=== PATIENT | male | born 1960 | race Caucasian/White ===

== ENCOUNTER 2019-06-11 19:05 | Inpatient (IN) | payer MEDICAID, OTHER ==
[~2019-06-11] VITALS: Ht 177.8 cm; Wt 88.5 kg
[2019-06-11] MEDS ORDERED: LORazepam 2 MG TABLET PO PRN (21:45)
[2019-06-11] MEDS ORDERED: HALOPERIDOL 5 MG TABLET PO PRN (21:45)
[2019-06-11] MEDS ORDERED: ZOLPIDEM TARTRATE 10 MG TABLET PO PRN (21:45)
[2019-06-11] MEDS: ACYCLOVIR 200 MG CAPSULE PO SCH (22:00)
[2019-06-11 22:50] VITALS: BP 124/77
[2019-06-11] MEDS ORDERED: INFLUENZA VIRUS VACCINE QVS 2019-20 (3YR+)/PF 60 MCG/0.5 ML SYRINGE IM ONE (23:45)
[2019-06-12 05:24] VITALS: BP 115/53
[2019-06-12 08:21] VITALS: BP 131/74
[2019-06-12] MEDS: ACYCLOVIR 200 MG CAPSULE PO SCH ×2 (09:49→16:48)
[2019-06-12] MEDS: LamoTRIgine 100 MG TABLET PO SCH (10:12)
[2019-06-12] MEDS: ESCITALOPRAM OXALATE 20 MG TABLET PO SCH (10:12)
[2019-06-12] MEDS ORDERED: GuaiFENesin/D-METHORPHAN [SUGAR-FREE] 200-20MG/10 ML SYRUP UDCUP PO PRN (11:15)
[2019-06-12] MEDS ORDERED: DOCUSATE SODIUM 100 MG CAPSULE PO PRN (11:15)
[2019-06-12] MEDS ORDERED: ONDANSETRON HCL 4 MG TABLET PO PRN (11:15)
[2019-06-12] MEDS ORDERED: LOPERAMIDE HCL 2 MG CAPSULE PO PRN (11:15)
[2019-06-12] MEDS ORDERED: MAGNESIUM HYDROXIDE SUSPENSION 30 ML UDCUP PO PRN (11:15)
[2019-06-12] MEDS ORDERED: ALBUTEROL SULFATE HFA 90 MCG/PUFF 8 GM INHALER IH PRN (11:15)
[2019-06-12] MEDS ORDERED: NICOTINE 14 MG/24 HOUR PATCH TD PRN (11:15)
[2019-06-12] MEDS ORDERED: MAG HYDROX/AL HYDROX/SIMETH ES 30 ML SUSPENSION UDCUP PO PRN (11:15)
[2019-06-12] MEDS ORDERED: CloNIDine HCL 0.1 MG TABLET PO PRN (11:15)
[2019-06-12 18:48] VITALS: BP 138/80
[2019-06-12] MEDS: QUEtiapine FUMARATE 100 MG TABLET PO SCH (20:37)
[2019-06-13 07:26] LABS: BASOPHILS % (AUTO) 0.6 % (0.0-2.0); EOSINOPHILS % (AUTO) 2.5 % (1.0-6.0); HEMATOCRIT 42.2 % (41-53); HEMOGLOBIN 14.6 g/dL (13.5-17.5); LYMPHOCYTES # (AUTO) 1.9 K/uL (1.0-4.8); MEAN CORPUSCULAR HEMOGLOBIN 31.2 pg (26.0-34.0); MEAN CORPUSCULAR HGB CONC 34.5 G/dL (31.0-37.0); MEAN CORPUSCULAR VOLUME 91 fL (80-100); MONOCYTES # (AUTO) 0.8 K/uL (0.1-1.0); MONOCYTES % (AUTO) 11.3 % (2.0-9.0); NEUTROPHILS # (AUTO) 4.2 K/uL (1.8-7.7); NEUTROPHILS % (AUTO) 58.6 % (40.0-70.0); PLATELET COUNT (AUTO) 116 K/uL (150-450); RED BLOOD CELL COUNT(AUTO) 4.66 MIL/uL (4.50-5.90)
[2019-06-13 07:40] LABS: HEMOGLOBIN A1C 5.4 % (4.5-6.2)
[2019-06-13 07:53] LABS: ALANINE AMINOTRANSFERASE 24 U/L (12-78); ALBUMIN 3.6 g/dL (3.4-5.0); ALKALINE PHOSPHATASE 64 U/L (46-116); ANION GAP 7 mmol/L (8-16); ASPARTATE AMINOTRANSFERASE 22 U/L (15-37); BILIRUBIN,TOTAL 0.5 mg/dL (0.1-1.0); CALCIUM, TOTAL 8.6 mg/dL (8.8-10.5); CARBON DIOXIDE 27 mmol/L (22-29); CHLORIDE 106 mmol/L (98-107); CHOL/HDL RATIO 4.2 (4.2-7.3); CHOLESTEROL 126 mg/dL (131-200); CREATININE 1.18 mg/dL (0.60-1.30); GLOMERULAR FILTR. RATE CALC > 60 mL/min (>60); GLUCOSE,RANDOM 88 mg/dL (70-110); HDL CHOLESTEROL 30 mg/dL (40-60); LDL CHOL (CALC.) 78 mg/dL (0-130); SODIUM SERUM 140 mmol/L (136-145); TOTAL PROTEIN, SERUM 6.8 g/dL (6.4-8.2); TRIGLYCERIDES 88 mg/dL (15-150); UREA NITROGEN, BLOOD 17 mg/dL (7-18)
[2019-06-13 08:00] VITALS: BP 111/73
[2019-06-13] MEDS: ACYCLOVIR 200 MG CAPSULE PO SCH ×2 (09:00→21:13)
[2019-06-13] MEDS: LamoTRIgine 100 MG TABLET PO SCH (09:00)
[2019-06-13] MEDS: ESCITALOPRAM OXALATE 20 MG TABLET PO SCH (09:00)
[2019-06-13 19:30] VITALS: BP 124/75
[2019-06-13] MEDS: QUEtiapine FUMARATE 100 MG TABLET PO SCH (21:13)
[2019-06-14] MEDS: ESCITALOPRAM OXALATE 20 MG TABLET PO SCH (09:27)
[2019-06-14] MEDS: LamoTRIgine 100 MG TABLET PO SCH (09:27)
[2019-06-14] MEDS: ACYCLOVIR 200 MG CAPSULE PO SCH ×2 (09:28→21:23)
[2019-06-14 10:11] VITALS: BP 123/69
[2019-06-14 17:00] VITALS: BP 124/70
[2019-06-14 20:02] LABS: APPEARANCE,URINE CLEAR (CLEAR); BILIRUBIN,URINE NEGATIVE (NEGATIVE); GLUCOSE, URINE (UA) NEGATIVE (NEGATIVE); KETONES,URINE NEGATIVE (NEGATIVE); LEUKOCYTE ESTERASE ,URINE NEGATIVE (NEGATIVE); NITRATE,URINE NEGATIVE (NEGATIVE); OCCULT BLOOD,URINE NEGATIVE (NEGATIVE); PROTEIN,URINE NEGATIVE (NEGATIVE); UROBILINOGEN,URINE 0.2 mg/dL (<=1.0)
[2019-06-14 20:08] LABS: AMPHET/METH SCREEN,URINE NEGATIVE (NEGATIVE); BARBITURATE SCREEN, URINE NEGATIVE (NEGATIVE); BENZODIAZEPINES SCREEN,URINE NEGATIVE (NEGATIVE); CANNABINOID SCREEN,URINE NEGATIVE (NEGATIVE); COCAINE SCREEN,URINE NEGATIVE (NEGATIVE); METHADONE SCREEN, URINE NEGATIVE (NEGATIVE); OPIATE SCREEN,URINE NEGATIVE (NEGATIVE); PHENCYCLIDINE SCREEN,URINE NEGATIVE (NEGATIVE)
[2019-06-14] MEDS: QUEtiapine FUMARATE 100 MG TABLET PO SCH (21:23)
[2019-06-15] MEDS: ESCITALOPRAM OXALATE 20 MG TABLET PO SCH (09:27)
[2019-06-15] MEDS: ACYCLOVIR 200 MG CAPSULE PO SCH ×2 (09:27→21:49)
[2019-06-15] MEDS: LamoTRIgine 100 MG TABLET PO SCH (09:27)
[2019-06-15 10:19] VITALS: BP 119/79
[2019-06-15 17:42] VITALS: BP 118/77
[2019-06-15] MEDS: QUEtiapine FUMARATE 100 MG TABLET PO SCH (21:49)
[2019-06-16 09:33] VITALS: BP 134/81
[2019-06-16] MEDS: ACYCLOVIR 200 MG CAPSULE PO SCH ×2 (09:50→21:34)
[2019-06-16] MEDS: ESCITALOPRAM OXALATE 20 MG TABLET PO SCH (09:50)
[2019-06-16] MEDS: LamoTRIgine 100 MG TABLET PO SCH (09:50)
[2019-06-16 18:23] VITALS: BP 108/58
[2019-06-16] MEDS: QUEtiapine FUMARATE 100 MG TABLET PO SCH (21:34)
[2019-06-17 04:48] VITALS: BP 127/62
[2019-06-17 08:00] VITALS: BP 135/70
[2019-06-17] MEDS: ESCITALOPRAM OXALATE 20 MG TABLET PO SCH (09:36)
[2019-06-17] MEDS: ACYCLOVIR 200 MG CAPSULE PO SCH ×2 (09:36→21:00)
[2019-06-17] MEDS: LamoTRIgine 100 MG TABLET PO SCH (09:36)
[2019-06-17 18:20] VITALS: BP 128/76
[2019-06-17] MEDS: QUEtiapine FUMARATE 100 MG TABLET PO SCH (21:24)
[2019-06-18 08:50] VITALS: BP 133/98
[2019-06-18] MEDS: ACYCLOVIR 200 MG CAPSULE PO SCH ×2 (09:00→21:39)
[2019-06-18] MEDS: LamoTRIgine 100 MG TABLET PO SCH (09:20)
[2019-06-18] MEDS: ESCITALOPRAM OXALATE 20 MG TABLET PO SCH (09:20)
[2019-06-18] MEDS: MULTIVITAMINS WITH MINERALS, THERAPEUTIC TABLET PO SCH (09:21)
[2019-06-18 17:19] VITALS: BP 124/73
[2019-06-18] MEDS: QUEtiapine FUMARATE 100 MG TABLET PO SCH (21:39)
[2019-06-19 08:42] VITALS: BP 143/98
[2019-06-19] MEDS: ACYCLOVIR 200 MG CAPSULE PO SCH ×3 (09:00→21:00)
[2019-06-19] MEDS: MULTIVITAMINS WITH MINERALS, THERAPEUTIC TABLET PO SCH (09:15)
[2019-06-19] MEDS: ESCITALOPRAM OXALATE 20 MG TABLET PO SCH (09:16)
[2019-06-19] MEDS: LamoTRIgine 100 MG TABLET PO SCH (09:17)
[2019-06-19 18:41] VITALS: BP 122/72
[2019-06-19] MEDS: QUEtiapine FUMARATE 100 MG TABLET PO SCH (21:29)
[2019-06-20] MEDS: ESCITALOPRAM OXALATE 20 MG TABLET PO SCH (08:43)
[2019-06-20] MEDS: LamoTRIgine 100 MG TABLET PO SCH (08:43)
[2019-06-20] MEDS: MULTIVITAMINS WITH MINERALS, THERAPEUTIC TABLET PO SCH (08:43)
[2019-06-20 08:53] VITALS: BP 129/80
[2019-06-20] MEDS: ACYCLOVIR 200 MG CAPSULE PO SCH ×2 (09:11→21:28)
[2019-06-20 20:13] VITALS: BP 127/70
[2019-06-20] MEDS: QUEtiapine FUMARATE 100 MG TABLET PO SCH (21:28)
[2019-06-21 08:57] VITALS: BP 137/84
[2019-06-21] MEDS: LamoTRIgine 100 MG TABLET PO SCH (09:33)
[2019-06-21] MEDS: ESCITALOPRAM OXALATE 20 MG TABLET PO SCH (09:33)
[2019-06-21] MEDS: MULTIVITAMINS WITH MINERALS, THERAPEUTIC TABLET PO SCH (09:33)
[2019-06-21] MEDS: ACYCLOVIR 200 MG CAPSULE PO SCH ×2 (09:34→21:25)
[2019-06-21] MEDS: PETROLATUM,WHITE 28 GM JELLY TP PRN (10:12)
[2019-06-21 16:00] VITALS: BP 124/83
[2019-06-21] MEDS: QUEtiapine FUMARATE 100 MG TABLET PO SCH (21:25)
[2019-06-22 08:30] VITALS: BP 125/74
[2019-06-22] MEDS: VENLAFAXINE HCL 75 MG ER CAPSULE PO SCH (09:00)
[2019-06-22] MEDS: LamoTRIgine 100 MG TABLET PO SCH (09:00)
[2019-06-22] MEDS: MULTIVITAMINS WITH MINERALS, THERAPEUTIC TABLET PO SCH (09:01)
[2019-06-22] MEDS: ACYCLOVIR 200 MG CAPSULE PO SCH ×2 (09:02→21:37)
[2019-06-22 19:47] VITALS: BP 124/75
[2019-06-22] MEDS: QUEtiapine FUMARATE 100 MG TABLET PO SCH (21:36)
[2019-06-23] MEDS: VENLAFAXINE HCL 75 MG ER CAPSULE PO SCH (08:21)
[2019-06-23] MEDS: LamoTRIgine 100 MG TABLET PO SCH (08:21)
[2019-06-23] MEDS: MULTIVITAMINS WITH MINERALS, THERAPEUTIC TABLET PO SCH (08:21)
[2019-06-23] MEDS: ACYCLOVIR 200 MG CAPSULE PO SCH ×2 (08:22→21:27)
[2019-06-23 08:52] VITALS: BP 121/81
[2019-06-23 17:22] VITALS: BP 122/80
[2019-06-23] MEDS: QUEtiapine FUMARATE 100 MG TABLET PO SCH (21:27)
[2019-06-24] MEDS: MULTIVITAMINS WITH MINERALS, THERAPEUTIC TABLET PO SCH (09:18)
[2019-06-24] MEDS: VENLAFAXINE HCL 75 MG ER CAPSULE PO SCH (09:18)
[2019-06-24] MEDS: LamoTRIgine 100 MG TABLET PO SCH (09:19)
[2019-06-24] MEDS: ACYCLOVIR 200 MG CAPSULE PO SCH ×2 (09:20→21:29)
[2019-06-24 13:04] VITALS: BP 123/87
[2019-06-24] MEDS: PETROLATUM,WHITE 28 GM JELLY TP PRN (16:27)
[2019-06-24 18:43] VITALS: BP 140/81
[2019-06-24] MEDS: QUEtiapine FUMARATE 100 MG TABLET PO SCH (21:29)
[2019-06-25 08:34] VITALS: BP 125/67
[2019-06-25] MEDS: LamoTRIgine 100 MG TABLET PO SCH (09:20)
[2019-06-25] MEDS: MULTIVITAMINS WITH MINERALS, THERAPEUTIC TABLET PO SCH (09:20)
[2019-06-25] MEDS: ACYCLOVIR 200 MG CAPSULE PO SCH ×2 (09:20→20:31)
[2019-06-25] MEDS: VENLAFAXINE HCL 75 MG ER CAPSULE PO SCH (09:20)
[2019-06-25] MEDS ORDERED: COAL TAR 0.5% 255 ML SHAMPOO TP PRN (17:45)
[2019-06-25 17:56] VITALS: BP 127/76
[2019-06-25] MEDS: QUEtiapine FUMARATE 100 MG TABLET PO SCH (20:30)
[2019-06-26 08:30] VITALS: BP 128/79
[2019-06-26] MEDS: VENLAFAXINE HCL 75 MG ER CAPSULE PO SCH (09:09)
[2019-06-26] MEDS: LamoTRIgine 100 MG TABLET PO SCH (09:09)
[2019-06-26] MEDS: MULTIVITAMINS WITH MINERALS, THERAPEUTIC TABLET PO SCH (09:09)
[2019-06-26] MEDS: ACYCLOVIR 200 MG CAPSULE PO SCH ×2 (09:11→20:38)
[2019-06-26 18:12] VITALS: BP 141/74
[2019-06-26] MEDS: QUEtiapine FUMARATE 100 MG TABLET PO SCH (21:43)
[2019-06-27 08:44] VITALS: BP 140/89
[2019-06-27] MEDS: LamoTRIgine 100 MG TABLET PO SCH (09:48)
[2019-06-27] MEDS: VENLAFAXINE HCL 75 MG ER CAPSULE PO SCH (09:48)
[2019-06-27] MEDS: ACYCLOVIR 200 MG CAPSULE PO SCH ×2 (09:49→21:42)
[2019-06-27] MEDS: MULTIVITAMINS WITH MINERALS, THERAPEUTIC TABLET PO SCH (09:49)
[2019-06-27 10:01] VITALS: BP 140/89
[2019-06-27] MEDS: IBUPROFEN 400 MG TABLET PO PRN ×2 (10:01→17:52)
[2019-06-27 17:54] VITALS: BP 113/60
[2019-06-27] MEDS: QUEtiapine FUMARATE 100 MG TABLET PO SCH (21:42)
[2019-06-28 08:34] VITALS: BP 129/78
[2019-06-28] MEDS: LamoTRIgine 100 MG TABLET PO SCH (10:32)
[2019-06-28] MEDS: ACYCLOVIR 200 MG CAPSULE PO SCH ×2 (10:32→21:42)
[2019-06-28] MEDS: MULTIVITAMINS WITH MINERALS, THERAPEUTIC TABLET PO SCH (10:32)
[2019-06-28] MEDS: VENLAFAXINE HCL 75 MG ER CAPSULE PO SCH (10:32)
[2019-06-28 18:31] VITALS: BP 142/82
[2019-06-28] MEDS: QUEtiapine FUMARATE 100 MG TABLET PO SCH (21:42)
[2019-06-29] MEDS: VENLAFAXINE HCL 75 MG ER CAPSULE PO SCH (09:20)
[2019-06-29] MEDS: MULTIVITAMINS WITH MINERALS, THERAPEUTIC TABLET PO SCH (09:21)
[2019-06-29] MEDS: LamoTRIgine 100 MG TABLET PO SCH (09:21)
[2019-06-29] MEDS: ACYCLOVIR 200 MG CAPSULE PO SCH ×2 (09:21→21:37)
[2019-06-29 09:40] VITALS: BP 116/71
[2019-06-29] MEDS: IBUPROFEN 600 MG TABLET PO PRN (15:41)
[2019-06-29 16:45] VITALS: BP 134/88
[2019-06-29 17:33] VITALS: BP 134/88
[2019-06-29] MEDS: FLUTICASONE PROPIONATE 50 MCG/SPRAY 16 GM NASAL SPRAY NASAL SCH (21:37)
[2019-06-29] MEDS: QUEtiapine FUMARATE 100 MG TABLET PO SCH (21:37)
[2019-06-30] MEDS: VENLAFAXINE HCL 75 MG ER CAPSULE PO SCH (09:02)
[2019-06-30] MEDS: MULTIVITAMINS WITH MINERALS, THERAPEUTIC TABLET PO SCH (09:02)
[2019-06-30] MEDS: FLUTICASONE PROPIONATE 50 MCG/SPRAY 16 GM NASAL SPRAY NASAL SCH ×2 (09:02→21:47)
[2019-06-30] MEDS: ACYCLOVIR 200 MG CAPSULE PO SCH ×2 (09:03→21:48)
[2019-06-30] MEDS: LamoTRIgine 100 MG TABLET PO SCH (09:03)
[2019-06-30 09:31] VITALS: BP 134/92
[2019-06-30 12:58] LABS: APPEARANCE,URINE CLEAR (CLEAR); BILIRUBIN,URINE NEGATIVE (NEGATIVE); GLUCOSE, URINE (UA) NEGATIVE (NEGATIVE); KETONES,URINE NEGATIVE (NEGATIVE); LEUKOCYTE ESTERASE ,URINE NEGATIVE (NEGATIVE); NITRATE,URINE NEGATIVE (NEGATIVE); OCCULT BLOOD,URINE NEGATIVE (NEGATIVE); PH,URINE 6.5 (5.0-8.0); PROTEIN,URINE NEGATIVE (NEGATIVE); UROBILINOGEN,URINE 0.2 mg/dL (<=1.0)
[2019-06-30 17:03] VITALS: BP 127/84
[2019-06-30] MEDS: QUEtiapine FUMARATE 100 MG TABLET PO SCH (21:47)
[2019-07-01] MEDS: FLUTICASONE PROPIONATE 50 MCG/SPRAY 16 GM NASAL SPRAY NASAL SCH ×2 (09:43→21:45)
[2019-07-01] MEDS: VENLAFAXINE HCL 75 MG ER CAPSULE PO SCH (09:43)
[2019-07-01] MEDS: ACYCLOVIR 200 MG CAPSULE PO SCH ×2 (09:43→21:45)
[2019-07-01] MEDS: LamoTRIgine 100 MG TABLET PO SCH (09:43)
[2019-07-01] MEDS: MULTIVITAMINS WITH MINERALS, THERAPEUTIC TABLET PO SCH (09:43)
[2019-07-01 10:06] VITALS: BP 131/80
[2019-07-01 17:24] VITALS: BP 137/85
[2019-07-01 21:14] VITALS: BP 124/74
[2019-07-01] MEDS: IBUPROFEN 600 MG TABLET PO PRN (21:14)
[2019-07-01] MEDS: QUEtiapine FUMARATE 100 MG TABLET PO SCH (21:45)
[2019-07-02] MEDS: FLUTICASONE PROPIONATE 50 MCG/SPRAY 16 GM NASAL SPRAY NASAL SCH (09:04)
[2019-07-02] MEDS: VENLAFAXINE HCL 75 MG ER CAPSULE PO SCH (09:04)
[2019-07-02] MEDS: ACYCLOVIR 200 MG CAPSULE PO SCH (09:05)
[2019-07-02] MEDS: LamoTRIgine 100 MG TABLET PO SCH (09:05)
[2019-07-02] MEDS: MULTIVITAMINS WITH MINERALS, THERAPEUTIC TABLET PO SCH (09:05)
[2019-07-02] MEDS ORDERED: QUET100T PO (09:06)
[2019-07-02] MEDS ORDERED: VENL-193 PO (09:07)
[2019-07-02] MEDS ORDERED: LAMO100 PO (09:07)
[2019-07-02] MEDS ORDERED: FLUT16H NASAL (09:08)
[2019-07-02] MEDS ORDERED: ACYC200C PO (09:08)
[2019-07-02] MEDS ORDERED: MULT-1239 PO (09:08)
== END 2019-07-02 09:45 | disposition home or self-care (01) | DRG 885 ==
LOC: 3EI 19:05
DX: F31.4 Bipolar disorder, current episode depressed, severe, without psychotic features (principal); R45.851 Suicidal ideations; B00.9 Herpesviral infection, unspecified; F10.10 Alcohol abuse, uncomplicated; J30.9 Allergic rhinitis, unspecified; Z91.5 Personal history of self-harm; Z23 Encounter for immunization
CPT/HCPCS: 80307; 82947; 83036; 84439; 84443; 90686

== ENCOUNTER 2019-08-07 12:31 | Inpatient (IN) | payer MEDICAID ==
[~2019-08-07] VITALS: Ht 180.3 cm; Wt 88.2 kg
[~2019-08-07 12:31] MED LIST: ACYC200C PO; FLUT16H NASAL; LAMO100 PO; MULT-1239 PO; QUET100T PO; VENL-193 PO
[2019-08-07 13:21] LABS: BASOPHILS % (AUTO) 0.6 % (0.0-2.0); HEMATOCRIT 43.4 % (41-53); HEMOGLOBIN 14.9 g/dL (13.5-17.5); LYMPHOCYTES # (AUTO) 1.4 K/uL (1.0-4.8); LYMPHOCYTES % (AUTO) 21.5 % (22.0-44.0); MEAN CORPUSCULAR HGB CONC 34.4 G/dL (31.0-37.0); MEAN CORPUSCULAR VOLUME 90 fL (80-100); MONOCYTES # (AUTO) 0.7 K/uL (0.1-1.0); MONOCYTES % (AUTO) 10.5 % (2.0-9.0); NEUTROPHILS # (AUTO) 4.4 K/uL (1.8-7.7); NEUTROPHILS % (AUTO) 65.4 % (40.0-70.0); PLATELET COUNT (AUTO) 121 K/uL (150-450); RED BLOOD CELL COUNT(AUTO) 4.82 MIL/uL (4.50-5.90); RED CELL DISTRIBUTION WIDTH 13.3 % (11.5-14.5)
[2019-08-07 13:31] LABS: ANION GAP 8 mmol/L (8-16); CALCIUM, TOTAL 8.8 mg/dL (8.8-10.5); CARBON DIOXIDE 27 mmol/L (22-29); CHLORIDE 103 mmol/L (98-107); CREATININE 1.12 mg/dL (0.60-1.30); GLOMERULAR FILTR. RATE CALC > 60 mL/min (>60); GLUCOSE,RANDOM 97 mg/dL (70-110); POTASSIUM 4.1 mmol/L (3.5-5.1); SODIUM SERUM 138 mmol/L (136-145); UREA NITROGEN, BLOOD 12 mg/dL (7-18)
[2019-08-07 13:38] LABS: ALANINE AMINOTRANSFERASE 47 U/L (12-78); ALBUMIN 3.9 g/dL (3.4-5.0); ALKALINE PHOSPHATASE 81 U/L (46-116); ASPARTATE AMINOTRANSFERASE 34 U/L (15-37); BILIRUBIN,TOTAL 0.5 mg/dL (0.1-1.0); TOTAL PROTEIN, SERUM 7.3 g/dL (6.4-8.2)
[2019-08-07] MEDS ORDERED: LORazepam 1 MG TABLET PO ONE (14:00)
[2019-08-07] MEDS ORDERED: ZOLPIDEM TARTRATE 10 MG TABLET PO PRN (15:30)
[2019-08-07] MEDS ORDERED: QUEtiapine FUMARATE 100 MG TABLET PO PRN (15:30)
[2019-08-07] MEDS ORDERED: LORazepam 2 MG TABLET PO PRN (15:30)
[2019-08-07 18:03] LABS: AMPHET/METH SCREEN,URINE NEGATIVE (NEGATIVE); BARBITURATE SCREEN, URINE NEGATIVE (NEGATIVE); BENZODIAZEPINES SCREEN,URINE NEGATIVE (NEGATIVE); CANNABINOID SCREEN,URINE NEGATIVE (NEGATIVE); COCAINE SCREEN,URINE NEGATIVE (NEGATIVE); METHADONE SCREEN, URINE NEGATIVE (NEGATIVE); OPIATE SCREEN,URINE NEGATIVE (NEGATIVE); PHENCYCLIDINE SCREEN,URINE NEGATIVE (NEGATIVE)
[2019-08-07] MEDS: QUEtiapine FUMARATE 100 MG TABLET PO SCH (21:32)
[2019-08-08 07:45] LABS: CHOL/HDL RATIO 4.1 (4.2-7.3)
[2019-08-08 07:46] LABS: FREE T4 (FREE THYROXINE) 0.78 ng/dL (0.76-1.46); THYROID STIMULATING HORMONE 2.47 uIU/mL (0.36-3.74)
[2019-08-08 09:18] VITALS: BP 98/75
[2019-08-08] MEDS: VENLAFAXINE HCL 150 MG ER CAPSULE PO SCH (09:22)
[2019-08-08] MEDS: LamoTRIgine 100 MG TABLET PO SCH (09:23)
[2019-08-08] MEDS ORDERED: CloNIDine HCL 0.1 MG TABLET PO PRN (09:45)
[2019-08-08] MEDS ORDERED: ALBUTEROL SULFATE HFA 90 MCG/PUFF 8 GM INHALER IH PRN (09:45)
[2019-08-08] MEDS ORDERED: MAG HYDROX/AL HYDROX/SIMETH ES 30 ML SUSPENSION UDCUP PO PRN (09:45)
[2019-08-08] MEDS ORDERED: DOCUSATE SODIUM 100 MG CAPSULE PO PRN (09:45)
[2019-08-08] MEDS ORDERED: IBUPROFEN 600 MG TABLET PO PRN (09:45)
[2019-08-08] MEDS ORDERED: OMEPRAZOLE 20 MG CAPSULE PO PRN (09:45)
[2019-08-08] MEDS ORDERED: LOPERAMIDE HCL 2 MG CAPSULE PO PRN (09:45)
[2019-08-08] MEDS ORDERED: BACITRACIN 28.4 GM OINTMENT TP PRN (09:45)
[2019-08-08] MEDS ORDERED: MAGNESIUM HYDROXIDE SUSPENSION 30 ML UDCUP PO PRN (09:45)
[2019-08-08] MEDS ORDERED: ONDANSETRON HCL 4 MG TABLET PO PRN (09:45)
[2019-08-08] MEDS ORDERED: BENZOCAINE/MENTHOL LOZENGE MM PRN (09:45)
[2019-08-08] MEDS ORDERED: PETROLATUM,WHITE 28 GM JELLY TP PRN (09:45)
[2019-08-08 20:58] VITALS: BP 140/82
[2019-08-08] MEDS: QUEtiapine FUMARATE 100 MG TABLET PO SCH (21:30)
[2019-08-09] MEDS: LamoTRIgine 100 MG TABLET PO SCH (09:26)
[2019-08-09 10:13] VITALS: BP 122/92
[2019-08-09] MEDS: VENLAFAXINE HCL 150 MG ER CAPSULE PO SCH (10:34)
[2019-08-09 17:03] VITALS: BP 117/78
[2019-08-09] MEDS: DIVALPROEX SODIUM 500 MG DR TABLET PO SCH (21:02)
[2019-08-09] MEDS: QUEtiapine FUMARATE 100 MG TABLET PO SCH (21:29)
[2019-08-10] MEDS: DIVALPROEX SODIUM 500 MG DR TABLET PO SCH ×2 (09:00→17:12)
[2019-08-10] MEDS: VENLAFAXINE HCL 75 MG ER CAPSULE PO SCH (09:48)
[2019-08-10] MEDS: LamoTRIgine 100 MG TABLET PO SCH ×2 (09:52→17:12)
[2019-08-10] MEDS ORDERED: TiZANidine HCL 4 MG TABLET PO PRN ×2 (11:30→12:15)
[2019-08-10] MEDS: AZITHROMYCIN 250 MG TABLET PO SCH (12:16)
[2019-08-10] MEDS: CIPROFLOXACIN HCL 0.2%/HYDROCORT 1% 10 ML OTIC SUSPENSION AS SCH ×2 (12:17→17:12)
[2019-08-10 16:30] VITALS: BP 129/78
[2019-08-10] MEDS: QUEtiapine FUMARATE 100 MG TABLET PO SCH (21:19)
[2019-08-11 08:00] VITALS: BP 124/78
[2019-08-11] MEDS: DIVALPROEX SODIUM 500 MG DR TABLET PO SCH (09:00)
[2019-08-11] MEDS: AZITHROMYCIN 250 MG TABLET PO SCH (10:05)
[2019-08-11] MEDS: CIPROFLOXACIN HCL 0.2%/HYDROCORT 1% 10 ML OTIC SUSPENSION AS SCH ×2 (10:05→16:31)
[2019-08-11] MEDS: VENLAFAXINE HCL 75 MG ER CAPSULE PO SCH (10:05)
[2019-08-11] MEDS: LamoTRIgine 100 MG TABLET PO SCH ×2 (10:05→16:06)
[2019-08-11] MEDS: LITHIUM CARBONATE 300 MG CAPSULE PO SCH (16:06)
[2019-08-11 16:36] VITALS: BP 141/96
[2019-08-11] MEDS: QUEtiapine FUMARATE 100 MG TABLET PO SCH (21:20)
[2019-08-12 08:22] VITALS: BP 118/79
[2019-08-12] MEDS: LITHIUM CARBONATE 300 MG CAPSULE PO SCH ×2 (09:00→17:00)
[2019-08-12] MEDS: AZITHROMYCIN 250 MG TABLET PO SCH (09:09)
[2019-08-12] MEDS: VENLAFAXINE HCL 75 MG ER CAPSULE PO SCH (09:09)
[2019-08-12] MEDS: CIPROFLOXACIN HCL 0.2%/HYDROCORT 1% 10 ML OTIC SUSPENSION AS SCH ×2 (09:09→17:40)
[2019-08-12] MEDS: LamoTRIgine 100 MG TABLET PO SCH ×2 (09:09→17:00)
[2019-08-12 19:08] VITALS: BP 137/90
[2019-08-12] MEDS: QUEtiapine FUMARATE 100 MG TABLET PO SCH (20:55)
[2019-08-13] MEDS ORDERED: LITH300C3 PO (07:46)
[2019-08-13] MEDS ORDERED: AZITH500IV IV (07:51)
[2019-08-13] MEDS ORDERED: CIPOTIC AS (07:56)
[2019-08-13] MEDS: LITHIUM CARBONATE 300 MG CAPSULE PO SCH ×2 (09:00→09:22)
[2019-08-13] MEDS: CIPROFLOXACIN HCL 0.2%/HYDROCORT 1% 10 ML OTIC SUSPENSION AS SCH (09:22)
[2019-08-13] MEDS: AZITHROMYCIN 250 MG TABLET PO SCH (09:22)
[2019-08-13] MEDS: LamoTRIgine 100 MG TABLET PO SCH (09:23)
[2019-08-13] MEDS: VENLAFAXINE HCL 75 MG ER CAPSULE PO SCH (09:23)
[2019-08-13 10:29] VITALS: BP 127/83
== END 2019-08-13 15:10 | disposition home or self-care (01) | DRG 885 ==
LOC: EMS 12:32 → 3EI 16:39
PROVIDERS: ADMIT Psychiatry & Neurology Psychiatry; ATTEND Psychiatry & Neurology Psychiatry
DX: F25.9 Schizoaffective disorder, unspecified (principal); R45.851 Suicidal ideations; F31.30 Bipolar disorder, current episode depressed, mild or moderate severity, unspecified; F41.9 Anxiety disorder, unspecified; F10.10 Alcohol abuse, uncomplicated; I95.9 Hypotension, unspecified; J30.9 Allergic rhinitis, unspecified; B00.9 Herpesviral infection, unspecified
CPT/HCPCS: 84439; 84443; G0480

== ENCOUNTER 2020-06-12 11:48 | Inpatient (IN) | payer MEDICAID ==
[~2020-06-12] VITALS: Ht 180.3 cm; Wt 89.4 kg
[~2020-06-12 11:48] MED LIST changes: -ACYC200C PO; +AZITH500IV IV; +CIPOTIC AS; +LITH300C3 PO; -MULT-1239 PO
[2020-06-12 12:26] LABS: BASOPHILS % (AUTO) 0.5 % (0.0-2.0); EOSINOPHILS % (AUTO) 3.6 % (1.0-6.0); HEMATOCRIT 43.1 % (41-53); HEMOGLOBIN 14.7 g/dL (13.5-17.5); LYMPHOCYTES # (AUTO) 1.1 K/uL (1.0-4.8); LYMPHOCYTES % (AUTO) 19.2 % (22.0-44.0); MEAN CORPUSCULAR HEMOGLOBIN 31.3 pg (26.0-34.0); MEAN CORPUSCULAR HGB CONC 34.1 G/dL (31.0-37.0); MEAN CORPUSCULAR VOLUME 92 fL (80-100); MONOCYTES # (AUTO) 0.6 K/uL (0.1-1.0); MONOCYTES % (AUTO) 9.8 % (2.0-9.0); NEUTROPHILS # (AUTO) 3.9 K/uL (1.8-7.7); NEUTROPHILS % (AUTO) 66.9 % (40.0-70.0); PLATELET COUNT (AUTO) 112 K/uL (150-450); RED BLOOD CELL COUNT(AUTO) 4.69 MIL/uL (4.50-5.90); RED CELL DISTRIBUTION WIDTH 13.1 % (11.5-14.5)
[2020-06-12 12:41] LABS: ANION GAP 9 mmol/L (8-16); CALCIUM, TOTAL 8.7 mg/dL (8.8-10.5); CARBON DIOXIDE 24 mmol/L (22-29); CHLORIDE 108 mmol/L (98-107); CREATININE 1.09 mg/dL (0.60-1.30); GLOMERULAR FILTR. RATE CALC > 60 mL/min (>60); GLUCOSE,RANDOM 92 mg/dL (70-110); POTASSIUM 4.1 mmol/L (3.5-5.1); SODIUM SERUM 141 mmol/L (136-145); UREA NITROGEN, BLOOD 13 mg/dL (7-18)
[2020-06-12 12:51] LABS: ALANINE AMINOTRANSFERASE 27 U/L (12-78); ALBUMIN 3.7 g/dL (3.4-5.0); ALKALINE PHOSPHATASE 75 U/L (46-116); ASPARTATE AMINOTRANSFERASE 21 U/L (15-37); BILIRUBIN,TOTAL 0.4 mg/dL (0.1-1.0); TOTAL PROTEIN, SERUM 7.3 g/dL (6.4-8.2)
[2020-06-12 12:58] LABS: LITHIUM < 0.20 mmol/L (0.60-1.20)
[2020-06-12 14:39] LABS: COVID AG,FIA SOURCE NASOPHARYNGEAL
[2020-06-12] MEDS ORDERED: QUEtiapine FUMARATE 100 MG TABLET PO PRN (15:45)
[2020-06-12] MEDS ORDERED: ZOLPIDEM TARTRATE 10 MG TABLET PO PRN (15:45)
[2020-06-12] MEDS ORDERED: LORazepam 2 MG TABLET PO PRN (15:45)
[2020-06-12 16:14] LABS: AMPHET/METH SCREEN,URINE NEGATIVE (NEGATIVE); BARBITURATE SCREEN, URINE NEGATIVE (NEGATIVE); BENZODIAZEPINES SCREEN,URINE NEGATIVE (NEGATIVE); CANNABINOID SCREEN,URINE NEGATIVE (NEGATIVE); COCAINE SCREEN,URINE NEGATIVE (NEGATIVE); METHADONE SCREEN, URINE NEGATIVE (NEGATIVE); OPIATE SCREEN,URINE NEGATIVE (NEGATIVE); PHENCYCLIDINE SCREEN,URINE NEGATIVE (NEGATIVE)
[2020-06-13 08:01] LABS: CHOL/HDL RATIO 4.4 (4.2-7.3)
[2020-06-13 08:33] VITALS: BP 137/78
[2020-06-13] MEDS: LamoTRIgine 100 MG TABLET PO SCH (12:27)
[2020-06-13] MEDS: ESCITALOPRAM OXALATE 20 MG TABLET PO SCH (12:28)
[2020-06-13 16:13] VITALS: BP 140/85
[2020-06-13] MEDS: QUEtiapine FUMARATE 100 MG TABLET PO SCH (20:53)
[2020-06-14 06:15] VITALS: BP 124/77
[2020-06-14 08:37] VITALS: BP 138/90
[2020-06-14] MEDS: ESCITALOPRAM OXALATE 20 MG TABLET PO SCH (08:53)
[2020-06-14] MEDS: LamoTRIgine 100 MG TABLET PO SCH (08:53)
[2020-06-14 16:16] VITALS: BP 121/73
[2020-06-14] MEDS: IBUPROFEN 600 MG TABLET PO PRN (21:02)
[2020-06-14] MEDS: QUEtiapine FUMARATE 100 MG TABLET PO SCH (21:57)
[2020-06-15 08:37] VITALS: BP 115/70
[2020-06-15] MEDS: LamoTRIgine 100 MG TABLET PO SCH (09:54)
[2020-06-15] MEDS: ESCITALOPRAM OXALATE 20 MG TABLET PO SCH (09:54)
[2020-06-15 16:21] VITALS: BP 123/81
[2020-06-15] MEDS: QUEtiapine FUMARATE 100 MG TABLET PO SCH (21:26)
[2020-06-16 06:16] VITALS: BP 120/69
[2020-06-16] MEDS: LamoTRIgine 100 MG TABLET PO SCH (08:13)
[2020-06-16] MEDS: ESCITALOPRAM OXALATE 20 MG TABLET PO SCH (08:13)
[2020-06-16 08:35] VITALS: BP 122/69
[2020-06-16 16:16] VITALS: BP 108/67
[2020-06-16] MEDS: QUEtiapine FUMARATE 100 MG TABLET PO SCH (21:31)
[2020-06-17 00:49] VITALS: BP 113/73
[2020-06-17 08:05] LABS: COVID AG,FIA SOURCE NASAL SWAB
[2020-06-17 08:22] VITALS: BP 119/69
[2020-06-17] MEDS: ESCITALOPRAM OXALATE 20 MG TABLET PO SCH (08:27)
[2020-06-17] MEDS: LamoTRIgine 100 MG TABLET PO SCH (08:27)
[2020-06-17 16:26] VITALS: BP 123/67
[2020-06-17] MEDS: QUEtiapine FUMARATE 100 MG TABLET PO SCH (21:30)
[2020-06-18 01:04] VITALS: BP 113/62
[2020-06-18 08:26] VITALS: BP 118/74
[2020-06-18] MEDS: ESCITALOPRAM OXALATE 20 MG TABLET PO SCH (08:39)
[2020-06-18] MEDS: LamoTRIgine 100 MG TABLET PO SCH (08:39)
[2020-06-18 16:10] VITALS: BP 118/71
[2020-06-18] MEDS: QUEtiapine FUMARATE 100 MG TABLET PO SCH (21:38)
[2020-06-18] MEDS ORDERED: DiphenhydrAMINE HCL 25 MG CAPSULE PO PRN (22:00)
[2020-06-18] MEDS: DiphenhydrAMINE HCL 25 MG CAPSULE PO PRN (23:06)
[2020-06-19 05:55] VITALS: BP 113/69
[2020-06-19] MEDS: ESCITALOPRAM OXALATE 20 MG TABLET PO SCH (08:21)
[2020-06-19] MEDS: LamoTRIgine 100 MG TABLET PO SCH (08:21)
[2020-06-19] MEDS: MULTIVITAMINS WITH IRON TABLET PO SCH (08:21)
[2020-06-19 08:32] VITALS: BP 115/68
[2020-06-19] MEDS: DiphenhydrAMINE HCL 25 MG CAPSULE PO PRN (12:53)
[2020-06-19 16:25] VITALS: BP 143/92
[2020-06-19] MEDS: QUEtiapine FUMARATE 100 MG TABLET PO SCH (21:23)
[2020-06-20 06:42] VITALS: BP 117/64
[2020-06-20] MEDS: ESCITALOPRAM OXALATE 20 MG TABLET PO SCH (08:15)
[2020-06-20] MEDS: MULTIVITAMINS WITH IRON TABLET PO SCH (08:15)
[2020-06-20] MEDS: LamoTRIgine 100 MG TABLET PO SCH (08:15)
[2020-06-20 08:37] VITALS: BP 126/81
[2020-06-20 16:23] VITALS: BP 129/78
[2020-06-20] MEDS: QUEtiapine FUMARATE 100 MG TABLET PO SCH (21:20)
[2020-06-20] MEDS: DiphenhydrAMINE HCL 25 MG CAPSULE PO PRN (21:20)
[2020-06-21 07:28] VITALS: BP 125/68
[2020-06-21] MEDS: MULTIVITAMINS WITH IRON TABLET PO SCH (08:23)
[2020-06-21] MEDS: ESCITALOPRAM OXALATE 20 MG TABLET PO SCH (08:23)
[2020-06-21] MEDS: LamoTRIgine 100 MG TABLET PO SCH (08:23)
[2020-06-21 08:36] VITALS: BP 137/90
[2020-06-21 16:14] VITALS: BP 113/73
[2020-06-21] MEDS: QUEtiapine FUMARATE 100 MG TABLET PO SCH (20:50)
[2020-06-21] MEDS: DiphenhydrAMINE HCL 25 MG CAPSULE PO PRN (20:50)
[2020-06-22 01:12] VITALS: BP 128/72
[2020-06-22] MEDS: MULTIVITAMINS WITH IRON TABLET PO SCH (08:23)
[2020-06-22] MEDS: ESCITALOPRAM OXALATE 20 MG TABLET PO SCH (08:23)
[2020-06-22] MEDS: LamoTRIgine 100 MG TABLET PO SCH (08:23)
[2020-06-22 08:36] VITALS: BP 133/75
[2020-06-22 16:22] VITALS: BP 118/69
[2020-06-22] MEDS: QUEtiapine FUMARATE 100 MG TABLET PO SCH (21:31)
[2020-06-22] MEDS: DiphenhydrAMINE HCL 25 MG CAPSULE PO PRN (21:31)
[2020-06-23 01:01] VITALS: BP 124/83
[2020-06-23 08:49] VITALS: BP 135/73
[2020-06-23] MEDS: LamoTRIgine 100 MG TABLET PO SCH (09:56)
[2020-06-23] MEDS: MULTIVITAMINS WITH IRON TABLET PO SCH (09:56)
[2020-06-23] MEDS: ESCITALOPRAM OXALATE 20 MG TABLET PO SCH (09:56)
[2020-06-23 16:10] VITALS: BP 128/67
[2020-06-23] MEDS: DiphenhydrAMINE HCL 25 MG CAPSULE PO PRN (21:25)
[2020-06-23] MEDS: QUEtiapine FUMARATE 100 MG TABLET PO SCH (21:26)
[2020-06-24 01:06] VITALS: BP 110/65
[2020-06-24 08:17] VITALS: BP 122/71
[2020-06-24] MEDS: MULTIVITAMINS WITH IRON TABLET PO SCH (09:00)
[2020-06-24] MEDS: LamoTRIgine 100 MG TABLET PO SCH (09:00)
[2020-06-24] MEDS: ESCITALOPRAM OXALATE 20 MG TABLET PO SCH (09:00)
[2020-06-24 16:14] VITALS: BP 111/71
[2020-06-24] MEDS: DiphenhydrAMINE HCL 25 MG CAPSULE PO PRN (21:33)
[2020-06-24] MEDS: QUEtiapine FUMARATE 100 MG TABLET PO SCH (21:33)
[2020-06-25 06:10] VITALS: BP 139/87
[2020-06-25 08:34] VITALS: BP 112/67
[2020-06-25 09:36] LABS: COVID AG,FIA SOURCE NASOPHARYNGEAL
[2020-06-25] MEDS: ESCITALOPRAM OXALATE 20 MG TABLET PO SCH (10:02)
[2020-06-25] MEDS: MULTIVITAMINS WITH IRON TABLET PO SCH (10:02)
[2020-06-25] MEDS: LamoTRIgine 100 MG TABLET PO SCH (10:02)
[2020-06-25] MEDS: BuPROPion HCL XL 150 MG ER TABLET PO SCH (10:02)
[2020-06-25 16:26] VITALS: BP 129/78
[2020-06-25] MEDS: DiphenhydrAMINE HCL 25 MG CAPSULE PO PRN (21:29)
[2020-06-25] MEDS: QUEtiapine FUMARATE 100 MG TABLET PO SCH (21:29)
[2020-06-26 06:14] VITALS: BP 123/69
[2020-06-26 08:13] VITALS: BP 135/75
[2020-06-26] MEDS: MULTIVITAMINS WITH IRON TABLET PO SCH (10:10)
[2020-06-26] MEDS: ESCITALOPRAM OXALATE 20 MG TABLET PO SCH (10:11)
[2020-06-26] MEDS: LamoTRIgine 100 MG TABLET PO SCH (10:11)
[2020-06-26] MEDS: BuPROPion HCL XL 150 MG ER TABLET PO SCH (10:11)
[2020-06-26 16:12] VITALS: BP 112/74
[2020-06-26] MEDS: DiphenhydrAMINE HCL 25 MG CAPSULE PO PRN (21:31)
[2020-06-26] MEDS: QUEtiapine FUMARATE 100 MG TABLET PO SCH (21:31)
[2020-06-27 04:51] VITALS: BP 128/70
[2020-06-27 08:25] VITALS: BP 119/72
[2020-06-27] MEDS: ESCITALOPRAM OXALATE 20 MG TABLET PO SCH (09:09)
[2020-06-27] MEDS: BuPROPion HCL XL 150 MG ER TABLET PO SCH (09:10)
[2020-06-27] MEDS: LamoTRIgine 100 MG TABLET PO SCH (09:10)
[2020-06-27] MEDS: MULTIVITAMINS WITH IRON TABLET PO SCH (09:10)
[2020-06-27 16:21] VITALS: BP 122/69
[2020-06-27] MEDS: QUEtiapine FUMARATE 100 MG TABLET PO SCH (21:24)
[2020-06-27] MEDS: DiphenhydrAMINE HCL 25 MG CAPSULE PO PRN (21:24)
[2020-06-28 01:03] VITALS: BP 129/77
[2020-06-28] MEDS: LamoTRIgine 100 MG TABLET PO SCH (08:36)
[2020-06-28] MEDS: ESCITALOPRAM OXALATE 20 MG TABLET PO SCH (08:36)
[2020-06-28] MEDS: MULTIVITAMINS WITH IRON TABLET PO SCH (08:36)
[2020-06-28] MEDS: BuPROPion HCL XL 150 MG ER TABLET PO SCH (08:43)
[2020-06-28 09:05] VITALS: BP 122/64
[2020-06-28 16:13] VITALS: BP 117/65
[2020-06-28] MEDS: QUEtiapine FUMARATE 200 MG TABLET PO SCH (21:32)
[2020-06-29 00:54] VITALS: BP 119/67
[2020-06-29 08:45] VITALS: BP 120/72
[2020-06-29] MEDS: ESCITALOPRAM OXALATE 20 MG TABLET PO SCH (09:25)
[2020-06-29] MEDS: PANTOPRAZOLE SODIUM 40 MG DR TABLET PO SCH (09:25)
[2020-06-29] MEDS: MULTIVITAMINS WITH IRON TABLET PO SCH (09:25)
[2020-06-29] MEDS: LamoTRIgine 100 MG TABLET PO SCH (09:25)
[2020-06-29 17:42] VITALS: BP 111/77
[2020-06-29] MEDS: BISMUTH SUBSALICYLATE 262 MG CHEWABLE TABLET CHEW PRN (19:02)
[2020-06-29] MEDS: QUEtiapine FUMARATE 200 MG TABLET PO SCH (21:28)
[2020-06-30 00:49] VITALS: BP 141/69
[2020-06-30] MEDS: PANTOPRAZOLE SODIUM 40 MG DR TABLET PO SCH (10:18)
[2020-06-30] MEDS: MULTIVITAMINS WITH IRON TABLET PO SCH (10:18)
[2020-06-30] MEDS: LamoTRIgine 100 MG TABLET PO SCH (10:18)
[2020-06-30] MEDS: ESCITALOPRAM OXALATE 20 MG TABLET PO SCH (10:18)
[2020-06-30 16:24] VITALS: BP 115/72
[2020-06-30] MEDS: QUEtiapine FUMARATE 200 MG TABLET PO SCH (21:36)
[2020-06-30] MEDS: BISMUTH SUBSALICYLATE 262 MG CHEWABLE TABLET CHEW PRN (21:36)
[2020-07-01 06:03] VITALS: BP 118/74
[2020-07-01 08:42] VITALS: BP 122/67
[2020-07-01] MEDS: LamoTRIgine 100 MG TABLET PO SCH (09:50)
[2020-07-01] MEDS: PANTOPRAZOLE SODIUM 40 MG DR TABLET PO SCH (09:50)
[2020-07-01] MEDS: ESCITALOPRAM OXALATE 20 MG TABLET PO SCH (09:50)
[2020-07-01] MEDS: MULTIVITAMINS WITH IRON TABLET PO SCH (09:50)
[2020-07-01] MEDS: VENLAFAXINE HCL 75 MG ER CAPSULE PO SCH (15:31)
[2020-07-01 16:17] VITALS: BP 116/65
[2020-07-01] MEDS: BISMUTH SUBSALICYLATE 262 MG CHEWABLE TABLET CHEW PRN (20:44)
[2020-07-01] MEDS: QUEtiapine FUMARATE 200 MG TABLET PO SCH (21:30)
[2020-07-02] MEDS ORDERED: BISMUTH SUBSALICYLATE 262 MG CHEWABLE TABLET CHEW PRN (05:00)
[2020-07-02 06:27] VITALS: BP 115/65
[2020-07-02 08:36] LABS: COVID AG,FIA SOURCE NASAL SWAB
[2020-07-02 08:46] VITALS: BP 137/84
[2020-07-02] MEDS: MULTIVITAMINS WITH IRON TABLET PO SCH (09:39)
[2020-07-02] MEDS: MULTIVITAMINS WITH MINERALS, THERAPEUTIC TABLET PO SCH (09:39)
[2020-07-02] MEDS: LamoTRIgine 100 MG TABLET PO SCH (09:39)
[2020-07-02] MEDS: PANTOPRAZOLE SODIUM 40 MG DR TABLET PO SCH (09:39)
[2020-07-02] MEDS: ESCITALOPRAM OXALATE 20 MG TABLET PO SCH (09:39)
[2020-07-02] MEDS: VENLAFAXINE HCL 75 MG ER CAPSULE PO SCH (09:39)
[2020-07-02 16:14] VITALS: BP 131/72
[2020-07-02] MEDS: QUEtiapine FUMARATE 200 MG TABLET PO SCH (21:32)
[2020-07-02] MEDS: DiphenhydrAMINE HCL 25 MG CAPSULE PO PRN (21:32)
[2020-07-03 05:20] VITALS: BP 128/84
[2020-07-03 08:38] VITALS: BP 123/69
[2020-07-03] MEDS: LamoTRIgine 100 MG TABLET PO SCH (09:09)
[2020-07-03] MEDS: ESCITALOPRAM OXALATE 20 MG TABLET PO SCH (09:09)
[2020-07-03] MEDS: VENLAFAXINE HCL 75 MG ER CAPSULE PO SCH (09:09)
[2020-07-03] MEDS: MULTIVITAMINS WITH IRON TABLET PO SCH (09:09)
[2020-07-03] MEDS: PANTOPRAZOLE SODIUM 40 MG DR TABLET PO SCH (09:09)
[2020-07-03] MEDS: MULTIVITAMINS WITH MINERALS, THERAPEUTIC TABLET PO SCH (09:09)
[2020-07-03 10:30] LABS: FREE T4 (FREE THYROXINE) 0.73 ng/dL (0.76-1.46); THYROID STIMULATING HORMONE 4.59 uIU/mL (0.36-3.74)
[2020-07-03 16:15] VITALS: BP 129/85
[2020-07-03] MEDS: QUEtiapine FUMARATE 200 MG TABLET PO SCH (21:25)
[2020-07-03] MEDS: DiphenhydrAMINE HCL 25 MG CAPSULE PO PRN (21:26)
[2020-07-04] MEDS: LEVOTHYROXINE SODIUM 25 MCG TABLET PO SCH (06:27)
[2020-07-04 06:40] VITALS: BP 108/69
[2020-07-04 08:26] VITALS: BP 111/67
[2020-07-04] MEDS: ESCITALOPRAM OXALATE 20 MG TABLET PO SCH (10:32)
[2020-07-04] MEDS: MULTIVITAMINS WITH MINERALS, THERAPEUTIC TABLET PO SCH (10:32)
[2020-07-04] MEDS: PANTOPRAZOLE SODIUM 40 MG DR TABLET PO SCH (10:32)
[2020-07-04] MEDS: MULTIVITAMINS WITH IRON TABLET PO SCH (10:32)
[2020-07-04] MEDS: VENLAFAXINE HCL 75 MG ER CAPSULE PO SCH (10:32)
[2020-07-04] MEDS: LamoTRIgine 100 MG TABLET PO SCH (10:32)
[2020-07-04 16:16] VITALS: BP 130/85
[2020-07-04] MEDS: QUEtiapine FUMARATE 200 MG TABLET PO SCH (21:31)
[2020-07-04] MEDS: DiphenhydrAMINE HCL 25 MG CAPSULE PO PRN (21:31)
[2020-07-05 06:15] VITALS: BP 119/72
[2020-07-05] MEDS: LEVOTHYROXINE SODIUM 25 MCG TABLET PO SCH (06:31)
[2020-07-05 08:22] VITALS: BP 127/74
[2020-07-05] MEDS: LamoTRIgine 100 MG TABLET PO SCH (09:20)
[2020-07-05] MEDS: MULTIVITAMINS WITH IRON TABLET PO SCH (09:20)
[2020-07-05] MEDS: ESCITALOPRAM OXALATE 20 MG TABLET PO SCH (09:21)
[2020-07-05] MEDS: VENLAFAXINE HCL 75 MG ER CAPSULE PO SCH (09:21)
[2020-07-05] MEDS: PANTOPRAZOLE SODIUM 40 MG DR TABLET PO SCH (09:21)
[2020-07-05] MEDS: MULTIVITAMINS WITH MINERALS, THERAPEUTIC TABLET PO SCH (09:21)
[2020-07-05 16:31] VITALS: BP 111/69
[2020-07-05] MEDS: QUEtiapine FUMARATE 200 MG TABLET PO SCH (21:31)
[2020-07-05] MEDS: DiphenhydrAMINE HCL 25 MG CAPSULE PO PRN (21:38)
[2020-07-06 05:21] VITALS: BP 127/89
[2020-07-06] MEDS: LEVOTHYROXINE SODIUM 25 MCG TABLET PO SCH (06:23)
[2020-07-06 08:45] VITALS: BP 129/70
[2020-07-06] MEDS: LamoTRIgine 100 MG TABLET PO SCH (08:55)
[2020-07-06] MEDS: PANTOPRAZOLE SODIUM 40 MG DR TABLET PO SCH (08:55)
[2020-07-06] MEDS: VENLAFAXINE HCL 75 MG ER CAPSULE PO SCH (08:55)
[2020-07-06] MEDS: ESCITALOPRAM OXALATE 20 MG TABLET PO SCH (08:56)
[2020-07-06] MEDS: MULTIVITAMINS WITH MINERALS, THERAPEUTIC TABLET PO SCH (09:00)
[2020-07-06 16:12] VITALS: BP 113/70
[2020-07-06] MEDS: QUEtiapine FUMARATE 200 MG TABLET PO SCH (21:30)
[2020-07-06] MEDS: DiphenhydrAMINE HCL 25 MG CAPSULE PO PRN (21:30)
[2020-07-07 01:02] VITALS: BP 124/72
[2020-07-07] MEDS: LEVOTHYROXINE SODIUM 25 MCG TABLET PO SCH (06:20)
[2020-07-07] MEDS: VENLAFAXINE HCL 75 MG ER CAPSULE PO SCH (08:40)
[2020-07-07] MEDS: PANTOPRAZOLE SODIUM 40 MG DR TABLET PO SCH (08:40)
[2020-07-07] MEDS: ESCITALOPRAM OXALATE 20 MG TABLET PO SCH (08:40)
[2020-07-07] MEDS: MULTIVITAMINS WITH MINERALS, THERAPEUTIC TABLET PO SCH (08:40)
[2020-07-07] MEDS: LamoTRIgine 100 MG TABLET PO SCH (08:41)
[2020-07-07 08:52] VITALS: BP 128/80
[2020-07-07] MEDS: DiphenhydrAMINE HCL 25 MG CAPSULE PO PRN ×2 (12:07→21:30)
[2020-07-07 16:19] VITALS: BP 113/72
[2020-07-07] MEDS: QUEtiapine FUMARATE 200 MG TABLET PO SCH (21:30)
[2020-07-08 01:45] VITALS: BP 118/70
[2020-07-08] MEDS: LEVOTHYROXINE SODIUM 25 MCG TABLET PO SCH (06:19)
[2020-07-08 08:19] VITALS: BP 115/67
[2020-07-08] MEDS: VENLAFAXINE HCL 75 MG ER CAPSULE PO SCH (09:38)
[2020-07-08] MEDS: ESCITALOPRAM OXALATE 20 MG TABLET PO SCH (09:38)
[2020-07-08] MEDS: PANTOPRAZOLE SODIUM 40 MG DR TABLET PO SCH (09:38)
[2020-07-08] MEDS: LamoTRIgine 100 MG TABLET PO SCH (09:38)
[2020-07-08] MEDS: MULTIVITAMINS WITH MINERALS, THERAPEUTIC TABLET PO SCH (09:38)
[2020-07-08 16:34] VITALS: BP 125/76
[2020-07-08] MEDS: QUEtiapine FUMARATE 200 MG TABLET PO SCH (20:59)
[2020-07-08] MEDS: DiphenhydrAMINE HCL 25 MG CAPSULE PO PRN (21:30)
[2020-07-09 00:24] VITALS: BP 128/74
[2020-07-09] MEDS: LEVOTHYROXINE SODIUM 25 MCG TABLET PO SCH (07:07)
[2020-07-09 08:19] VITALS: BP 114/72
[2020-07-09] MEDS: MULTIVITAMINS WITH MINERALS, THERAPEUTIC TABLET PO SCH (09:26)
[2020-07-09] MEDS: ESCITALOPRAM OXALATE 20 MG TABLET PO SCH (09:26)
[2020-07-09] MEDS: LamoTRIgine 100 MG TABLET PO SCH (09:26)
[2020-07-09] MEDS: VENLAFAXINE HCL 75 MG ER CAPSULE PO SCH (09:26)
[2020-07-09] MEDS: PANTOPRAZOLE SODIUM 40 MG DR TABLET PO SCH (09:26)
[2020-07-09 13:10] LABS: COVID AG,FIA SOURCE NASOPHARYNGEAL
[2020-07-09 16:33] VITALS: BP 126/76
[2020-07-09] MEDS: QUEtiapine FUMARATE 200 MG TABLET PO SCH (21:44)
[2020-07-10 05:57] VITALS: BP 116/76
[2020-07-10] MEDS: LEVOTHYROXINE SODIUM 25 MCG TABLET PO SCH (06:43)
[2020-07-10 08:51] VITALS: BP 114/72
[2020-07-10] MEDS: PANTOPRAZOLE SODIUM 40 MG DR TABLET PO SCH (08:51)
[2020-07-10] MEDS: MULTIVITAMINS WITH MINERALS, THERAPEUTIC TABLET PO SCH (08:51)
[2020-07-10] MEDS: VENLAFAXINE HCL 75 MG ER CAPSULE PO SCH (08:51)
[2020-07-10] MEDS: ESCITALOPRAM OXALATE 20 MG TABLET PO SCH (08:51)
[2020-07-10] MEDS: LamoTRIgine 100 MG TABLET PO SCH (08:51)
[2020-07-10 16:23] VITALS: BP 114/77
[2020-07-10] MEDS: QUEtiapine FUMARATE 200 MG TABLET PO SCH (21:23)
[2020-07-11] MEDS: LEVOTHYROXINE SODIUM 25 MCG TABLET PO SCH (06:48)
[2020-07-11 08:29] VITALS: BP 115/67
[2020-07-11] MEDS: ESCITALOPRAM OXALATE 20 MG TABLET PO SCH (08:48)
[2020-07-11] MEDS: PANTOPRAZOLE SODIUM 40 MG DR TABLET PO SCH (08:48)
[2020-07-11] MEDS: VENLAFAXINE HCL 75 MG ER CAPSULE PO SCH (08:48)
[2020-07-11] MEDS: LamoTRIgine 100 MG TABLET PO SCH (08:48)
[2020-07-11] MEDS: MULTIVITAMINS WITH MINERALS, THERAPEUTIC TABLET PO SCH (08:48)
[2020-07-11 16:10] VITALS: BP 127/78
[2020-07-11] MEDS: QUEtiapine FUMARATE 200 MG TABLET PO SCH (21:23)
[2020-07-11] MEDS: DiphenhydrAMINE HCL 25 MG CAPSULE PO PRN (21:23)
[2020-07-12 06:27] VITALS: BP 104/63
[2020-07-12] MEDS: LEVOTHYROXINE SODIUM 25 MCG TABLET PO SCH (06:37)
[2020-07-12] MEDS: ESCITALOPRAM OXALATE 20 MG TABLET PO SCH (08:22)
[2020-07-12] MEDS: PANTOPRAZOLE SODIUM 40 MG DR TABLET PO SCH (08:22)
[2020-07-12] MEDS: MULTIVITAMINS WITH MINERALS, THERAPEUTIC TABLET PO SCH (08:22)
[2020-07-12] MEDS: LamoTRIgine 100 MG TABLET PO SCH (08:22)
[2020-07-12] MEDS: VENLAFAXINE HCL 75 MG ER CAPSULE PO SCH (08:22)
[2020-07-12 08:30] VITALS: BP 115/75
[2020-07-12 16:09] VITALS: BP 123/74
[2020-07-12] MEDS: QUEtiapine FUMARATE 200 MG TABLET PO SCH (21:27)
[2020-07-12] MEDS: DiphenhydrAMINE HCL 25 MG CAPSULE PO PRN (21:27)
[2020-07-13 00:32] VITALS: BP 119/77
[2020-07-13] MEDS: LEVOTHYROXINE SODIUM 25 MCG TABLET PO SCH (06:20)
[2020-07-13 08:12] VITALS: BP 111/72
[2020-07-13] MEDS: MULTIVITAMINS WITH MINERALS, THERAPEUTIC TABLET PO SCH (09:23)
[2020-07-13] MEDS: VENLAFAXINE HCL 75 MG ER CAPSULE PO SCH (09:23)
[2020-07-13] MEDS: LamoTRIgine 100 MG TABLET PO SCH (09:24)
[2020-07-13] MEDS: ESCITALOPRAM OXALATE 20 MG TABLET PO SCH (09:24)
[2020-07-13] MEDS: PANTOPRAZOLE SODIUM 40 MG DR TABLET PO SCH (09:24)
[2020-07-13] MEDS ORDERED: VENLAFAXINE HCL 75 MG ER CAPSULE PO ONE (09:45)
[2020-07-13 16:22] VITALS: BP 125/64
[2020-07-13] MEDS: QUEtiapine FUMARATE 200 MG TABLET PO SCH (21:29)
[2020-07-13] MEDS: DiphenhydrAMINE HCL 25 MG CAPSULE PO PRN (21:34)
[2020-07-14] MEDS: LEVOTHYROXINE SODIUM 25 MCG TABLET PO SCH (06:25)
[2020-07-14] MEDS: VENLAFAXINE HCL 150 MG ER CAPSULE PO SCH (08:38)
[2020-07-14] MEDS: MULTIVITAMINS WITH MINERALS, THERAPEUTIC TABLET PO SCH (08:38)
[2020-07-14] MEDS: PANTOPRAZOLE SODIUM 40 MG DR TABLET PO SCH (08:38)
[2020-07-14] MEDS: LamoTRIgine 100 MG TABLET PO SCH (08:38)
[2020-07-14] MEDS: ESCITALOPRAM OXALATE 20 MG TABLET PO SCH (08:38)
[2020-07-14 08:45] VITALS: BP 120/64
[2020-07-14 16:29] VITALS: BP 135/76
[2020-07-14] MEDS: DiphenhydrAMINE HCL 25 MG CAPSULE PO PRN (21:38)
[2020-07-14] MEDS: QUEtiapine FUMARATE 200 MG TABLET PO SCH (21:38)
[2020-07-15 00:19] VITALS: BP 125/74
[2020-07-15] MEDS: LEVOTHYROXINE SODIUM 25 MCG TABLET PO SCH (06:30)
[2020-07-15] MEDS: VENLAFAXINE HCL 150 MG ER CAPSULE PO SCH (08:28)
[2020-07-15] MEDS: LamoTRIgine 100 MG TABLET PO SCH (08:28)
[2020-07-15] MEDS: PANTOPRAZOLE SODIUM 40 MG DR TABLET PO SCH (08:28)
[2020-07-15] MEDS: ESCITALOPRAM OXALATE 20 MG TABLET PO SCH (08:28)
[2020-07-15] MEDS: MULTIVITAMINS WITH MINERALS, THERAPEUTIC TABLET PO SCH (08:28)
[2020-07-15 08:31] VITALS: BP 116/73
[2020-07-15 17:12] VITALS: BP 110/71
[2020-07-15] MEDS: DiphenhydrAMINE HCL 25 MG CAPSULE PO PRN (21:30)
[2020-07-15] MEDS: QUEtiapine FUMARATE 200 MG TABLET PO SCH (21:30)
[2020-07-16 00:38] VITALS: BP 119/74
[2020-07-16] MEDS: LEVOTHYROXINE SODIUM 25 MCG TABLET PO SCH (06:29)
[2020-07-16 08:18] VITALS: BP 125/68
[2020-07-16] MEDS: ESCITALOPRAM OXALATE 20 MG TABLET PO SCH (08:51)
[2020-07-16] MEDS: PANTOPRAZOLE SODIUM 40 MG DR TABLET PO SCH (08:51)
[2020-07-16] MEDS: VENLAFAXINE HCL 150 MG ER CAPSULE PO SCH (08:51)
[2020-07-16] MEDS: LamoTRIgine 100 MG TABLET PO SCH (08:51)
[2020-07-16] MEDS: MULTIVITAMINS WITH MINERALS, THERAPEUTIC TABLET PO SCH (08:51)
[2020-07-16 09:51] LABS: COVID AG,FIA SOURCE NASOPHARYNGEAL
[2020-07-16 16:33] VITALS: BP 128/75
[2020-07-16] MEDS: QUEtiapine FUMARATE 200 MG TABLET PO SCH (21:30)
[2020-07-16] MEDS: DiphenhydrAMINE HCL 25 MG CAPSULE PO PRN (21:31)
[2020-07-17 06:03] VITALS: BP 122/74
[2020-07-17] MEDS: LEVOTHYROXINE SODIUM 25 MCG TABLET PO SCH (06:47)
[2020-07-17 08:14] VITALS: BP 104/67
[2020-07-17] MEDS: MULTIVITAMINS WITH MINERALS, THERAPEUTIC TABLET PO SCH (08:21)
[2020-07-17] MEDS: ESCITALOPRAM OXALATE 20 MG TABLET PO SCH (08:21)
[2020-07-17] MEDS: LamoTRIgine 100 MG TABLET PO SCH (08:21)
[2020-07-17] MEDS: VENLAFAXINE HCL 150 MG ER CAPSULE PO SCH (08:21)
[2020-07-17] MEDS: PANTOPRAZOLE SODIUM 40 MG DR TABLET PO SCH (08:21)
[2020-07-17 17:14] VITALS: BP 127/79
[2020-07-17] MEDS: DiphenhydrAMINE HCL 25 MG CAPSULE PO PRN (21:15)
[2020-07-17] MEDS: QUEtiapine FUMARATE 200 MG TABLET PO SCH (21:15)
[2020-07-18 00:42] VITALS: BP 117/62
[2020-07-18] MEDS: LEVOTHYROXINE SODIUM 25 MCG TABLET PO SCH (06:48)
[2020-07-18 08:16] VITALS: BP 112/66
[2020-07-18] MEDS: PANTOPRAZOLE SODIUM 40 MG DR TABLET PO SCH (08:26)
[2020-07-18] MEDS: VENLAFAXINE HCL 150 MG ER CAPSULE PO SCH (08:26)
[2020-07-18] MEDS: MULTIVITAMINS WITH MINERALS, THERAPEUTIC TABLET PO SCH (08:26)
[2020-07-18] MEDS: ESCITALOPRAM OXALATE 20 MG TABLET PO SCH (08:26)
[2020-07-18] MEDS: LamoTRIgine 100 MG TABLET PO SCH (08:26)
[2020-07-18 16:32] VITALS: BP 118/73
[2020-07-18] MEDS: QUEtiapine FUMARATE 200 MG TABLET PO SCH (21:27)
[2020-07-18] MEDS: DiphenhydrAMINE HCL 25 MG CAPSULE PO PRN (21:27)
[2020-07-19] MEDS: LEVOTHYROXINE SODIUM 25 MCG TABLET PO SCH (07:04)
[2020-07-19] MEDS: VENLAFAXINE HCL 150 MG ER CAPSULE PO SCH (08:34)
[2020-07-19] MEDS: ESCITALOPRAM OXALATE 20 MG TABLET PO SCH (08:34)
[2020-07-19] MEDS: MULTIVITAMINS WITH MINERALS, THERAPEUTIC TABLET PO SCH (08:34)
[2020-07-19] MEDS: PANTOPRAZOLE SODIUM 40 MG DR TABLET PO SCH (08:34)
[2020-07-19] MEDS: LamoTRIgine 100 MG TABLET PO SCH (08:35)
[2020-07-19 08:39] VITALS: BP 118/74
[2020-07-19 16:15] VITALS: BP 123/72
[2020-07-19] MEDS: DiphenhydrAMINE HCL 25 MG CAPSULE PO PRN (21:30)
[2020-07-19] MEDS: QUEtiapine FUMARATE 200 MG TABLET PO SCH (21:30)
[2020-07-20 06:05] VITALS: BP 107/71
[2020-07-20] MEDS: LEVOTHYROXINE SODIUM 25 MCG TABLET PO SCH (06:22)
[2020-07-20] MEDS: LamoTRIgine 100 MG TABLET PO SCH (08:35)
[2020-07-20] MEDS: MULTIVITAMINS WITH MINERALS, THERAPEUTIC TABLET PO SCH (08:35)
[2020-07-20] MEDS: PANTOPRAZOLE SODIUM 40 MG DR TABLET PO SCH (08:35)
[2020-07-20] MEDS: VENLAFAXINE HCL 150 MG ER CAPSULE PO SCH (08:35)
[2020-07-20] MEDS: ESCITALOPRAM OXALATE 20 MG TABLET PO SCH (08:35)
[2020-07-20 08:43] VITALS: BP 114/59
[2020-07-20 16:16] VITALS: BP 110/76
[2020-07-20] MEDS: QUEtiapine FUMARATE 200 MG TABLET PO SCH (21:26)
[2020-07-21 00:26] VITALS: BP 102/63
[2020-07-21] MEDS: LEVOTHYROXINE SODIUM 25 MCG TABLET PO SCH (06:29)
[2020-07-21 08:11] VITALS: BP 111/75
[2020-07-21] MEDS: ESCITALOPRAM OXALATE 20 MG TABLET PO SCH (08:28)
[2020-07-21] MEDS: MULTIVITAMINS WITH MINERALS, THERAPEUTIC TABLET PO SCH (08:28)
[2020-07-21] MEDS: VENLAFAXINE HCL 150 MG ER CAPSULE PO SCH (08:28)
[2020-07-21] MEDS: LamoTRIgine 100 MG TABLET PO SCH (08:28)
[2020-07-21] MEDS: PANTOPRAZOLE SODIUM 40 MG DR TABLET PO SCH (08:28)
[2020-07-21 16:04] VITALS: BP 131/76
[2020-07-21] MEDS: VENLAFAXINE HCL 75 MG ER CAPSULE PO SCH (21:00)
[2020-07-21] MEDS: QUEtiapine FUMARATE 200 MG TABLET PO SCH (21:45)
[2020-07-21] MEDS: DiphenhydrAMINE HCL 25 MG CAPSULE PO PRN (21:49)
[2020-07-22] MEDS: LEVOTHYROXINE SODIUM 25 MCG TABLET PO SCH (06:00)
[2020-07-22 08:07] VITALS: BP 116/70
[2020-07-22] MEDS: PANTOPRAZOLE SODIUM 40 MG DR TABLET PO SCH (08:09)
[2020-07-22] MEDS: LamoTRIgine 100 MG TABLET PO SCH (08:09)
[2020-07-22] MEDS: VENLAFAXINE HCL 150 MG ER CAPSULE PO SCH (08:09)
[2020-07-22] MEDS: MULTIVITAMINS WITH MINERALS, THERAPEUTIC TABLET PO SCH (08:09)
[2020-07-22] MEDS: ESCITALOPRAM OXALATE 20 MG TABLET PO SCH (08:09)
[2020-07-22 16:06] VITALS: BP 138/78
[2020-07-22] MEDS: VENLAFAXINE HCL 75 MG ER CAPSULE PO SCH (21:00)
[2020-07-22] MEDS: QUEtiapine FUMARATE 200 MG TABLET PO SCH (21:38)
[2020-07-22] MEDS: DiphenhydrAMINE HCL 25 MG CAPSULE PO PRN (21:38)
[2020-07-23 06:23] VITALS: BP 115/72
[2020-07-23] MEDS: LEVOTHYROXINE SODIUM 25 MCG TABLET PO SCH (06:57)
[2020-07-23] MEDS: VENLAFAXINE HCL 75 MG ER CAPSULE PO SCH (08:27)
[2020-07-23] MEDS: ESCITALOPRAM OXALATE 20 MG TABLET PO SCH (08:27)
[2020-07-23] MEDS: MULTIVITAMINS WITH MINERALS, THERAPEUTIC TABLET PO SCH (08:27)
[2020-07-23] MEDS: LamoTRIgine 100 MG TABLET PO SCH (08:27)
[2020-07-23] MEDS: PANTOPRAZOLE SODIUM 40 MG DR TABLET PO SCH (08:27)
[2020-07-23 09:17] LABS: COVID AG,FIA SOURCE NASOPHARYNGEAL
[2020-07-23 10:21] VITALS: BP 137/78
[2020-07-23 16:33] VITALS: BP 124/74
[2020-07-23] MEDS: QUEtiapine FUMARATE 200 MG TABLET PO SCH (21:27)
[2020-07-24 00:37] VITALS: BP 122/71
[2020-07-24] MEDS: LEVOTHYROXINE SODIUM 25 MCG TABLET PO SCH (06:32)
[2020-07-24 08:43] VITALS: BP 121/71
[2020-07-24] MEDS: MULTIVITAMINS WITH MINERALS, THERAPEUTIC TABLET PO SCH (08:43)
[2020-07-24] MEDS: ESCITALOPRAM OXALATE 20 MG TABLET PO SCH (08:43)
[2020-07-24] MEDS: PANTOPRAZOLE SODIUM 40 MG DR TABLET PO SCH (08:43)
[2020-07-24] MEDS: VENLAFAXINE HCL 75 MG ER CAPSULE PO SCH (08:43)
[2020-07-24] MEDS: LamoTRIgine 100 MG TABLET PO SCH (08:43)
[2020-07-24 16:15] VITALS: BP 121/74
[2020-07-24] MEDS: DiphenhydrAMINE HCL 25 MG CAPSULE PO PRN (20:15)
[2020-07-24] MEDS: QUEtiapine FUMARATE 200 MG TABLET PO SCH (21:26)
[2020-07-25 05:43] VITALS: BP 109/66
[2020-07-25] MEDS: LEVOTHYROXINE SODIUM 25 MCG TABLET PO SCH (06:52)
[2020-07-25] MEDS: LamoTRIgine 100 MG TABLET PO SCH (08:22)
[2020-07-25] MEDS: PANTOPRAZOLE SODIUM 40 MG DR TABLET PO SCH (08:22)
[2020-07-25] MEDS: VENLAFAXINE HCL 75 MG ER CAPSULE PO SCH (08:23)
[2020-07-25] MEDS: MULTIVITAMINS WITH MINERALS, THERAPEUTIC TABLET PO SCH (08:23)
[2020-07-25] MEDS: ESCITALOPRAM OXALATE 20 MG TABLET PO SCH (08:23)
[2020-07-25 08:26] VITALS: BP 118/73
[2020-07-25 16:18] VITALS: BP 126/85
[2020-07-25] MEDS: QUEtiapine FUMARATE 200 MG TABLET PO SCH (21:37)
[2020-07-25] MEDS: DiphenhydrAMINE HCL 25 MG CAPSULE PO PRN (21:37)
[2020-07-26] MEDS: LEVOTHYROXINE SODIUM 25 MCG TABLET PO SCH (06:33)
[2020-07-26 08:25] VITALS: BP 122/78
[2020-07-26] MEDS: PANTOPRAZOLE SODIUM 40 MG DR TABLET PO SCH (08:29)
[2020-07-26] MEDS: LamoTRIgine 100 MG TABLET PO SCH (08:29)
[2020-07-26] MEDS: MULTIVITAMINS WITH MINERALS, THERAPEUTIC TABLET PO SCH (08:30)
[2020-07-26] MEDS: VENLAFAXINE HCL 75 MG ER CAPSULE PO SCH (08:30)
[2020-07-26] MEDS: ESCITALOPRAM OXALATE 20 MG TABLET PO SCH (08:30)
[2020-07-26 16:17] VITALS: BP 145/81
[2020-07-26 18:59] VITALS: BP 139/92
[2020-07-26] MEDS: QUEtiapine FUMARATE 200 MG TABLET PO SCH (21:33)
[2020-07-26] MEDS: DiphenhydrAMINE HCL 25 MG CAPSULE PO PRN (21:33)
[2020-07-27 06:03] VITALS: BP 127/76
[2020-07-27] MEDS: LEVOTHYROXINE SODIUM 25 MCG TABLET PO SCH (06:44)
[2020-07-27 08:45] VITALS: BP 109/73
[2020-07-27] MEDS: ESCITALOPRAM OXALATE 20 MG TABLET PO SCH (10:21)
[2020-07-27] MEDS: MULTIVITAMINS WITH MINERALS, THERAPEUTIC TABLET PO SCH (10:21)
[2020-07-27] MEDS: VENLAFAXINE HCL 75 MG ER CAPSULE PO SCH (10:21)
[2020-07-27] MEDS: LamoTRIgine 100 MG TABLET PO SCH (10:21)
[2020-07-27] MEDS: PANTOPRAZOLE SODIUM 40 MG DR TABLET PO SCH (10:21)
[2020-07-27 16:18] VITALS: BP 128/79
[2020-07-27] MEDS: IBUPROFEN 600 MG TABLET PO PRN (19:48)
[2020-07-27] MEDS: QUEtiapine FUMARATE 200 MG TABLET PO SCH (21:34)
[2020-07-27] MEDS: DiphenhydrAMINE HCL 25 MG CAPSULE PO PRN (21:34)
[2020-07-28 06:39] VITALS: BP 126/70
[2020-07-28] MEDS: LEVOTHYROXINE SODIUM 25 MCG TABLET PO SCH (06:58)
[2020-07-28] MEDS: VENLAFAXINE HCL 75 MG ER CAPSULE PO SCH (08:17)
[2020-07-28] MEDS: LamoTRIgine 100 MG TABLET PO SCH (08:17)
[2020-07-28] MEDS: MULTIVITAMINS WITH MINERALS, THERAPEUTIC TABLET PO SCH (08:17)
[2020-07-28] MEDS: PANTOPRAZOLE SODIUM 40 MG DR TABLET PO SCH (08:17)
[2020-07-28] MEDS: ESCITALOPRAM OXALATE 20 MG TABLET PO SCH (08:17)
[2020-07-28 08:26] VITALS: BP 111/66
[2020-07-28 17:28] VITALS: BP 128/89
[2020-07-28] MEDS: QUEtiapine FUMARATE 200 MG TABLET PO SCH (21:26)
[2020-07-29] MEDS: LEVOTHYROXINE SODIUM 25 MCG TABLET PO SCH (06:31)
[2020-07-29] MEDS: VENLAFAXINE HCL 75 MG ER CAPSULE PO SCH (08:36)
[2020-07-29] MEDS: MULTIVITAMINS WITH MINERALS, THERAPEUTIC TABLET PO SCH (08:36)
[2020-07-29] MEDS: PANTOPRAZOLE SODIUM 40 MG DR TABLET PO SCH (08:36)
[2020-07-29] MEDS: ESCITALOPRAM OXALATE 20 MG TABLET PO SCH (08:36)
[2020-07-29] MEDS: LamoTRIgine 100 MG TABLET PO SCH (08:36)
[2020-07-29 08:53] VITALS: BP 114/67
[2020-07-29 16:25] VITALS: BP 139/77
[2020-07-29] MEDS: QUEtiapine FUMARATE 200 MG TABLET PO SCH (21:22)
[2020-07-29] MEDS: PETROLATUM,WHITE 28 GM JELLY TP PRN (21:35)
[2020-07-29] MEDS: DiphenhydrAMINE HCL 25 MG CAPSULE PO PRN (21:40)
[2020-07-30] MEDS: LEVOTHYROXINE SODIUM 25 MCG TABLET PO SCH (06:17)
[2020-07-30 06:26] VITALS: BP 131/85
[2020-07-30 08:19] VITALS: BP 115/44
[2020-07-30] MEDS: ESCITALOPRAM OXALATE 20 MG TABLET PO SCH (08:38)
[2020-07-30] MEDS: PANTOPRAZOLE SODIUM 40 MG DR TABLET PO SCH (08:38)
[2020-07-30] MEDS: VENLAFAXINE HCL 75 MG ER CAPSULE PO SCH (08:38)
[2020-07-30] MEDS: LamoTRIgine 100 MG TABLET PO SCH (08:38)
[2020-07-30] MEDS: MULTIVITAMINS WITH MINERALS, THERAPEUTIC TABLET PO SCH (08:38)
[2020-07-30 08:44] LABS: COVID AG,FIA SOURCE NASOPHARYNGEAL
[2020-07-30 16:31] VITALS: BP 119/74
[2020-07-30] MEDS: PETROLATUM,WHITE 28 GM JELLY TP PRN (21:28)
[2020-07-30] MEDS: QUEtiapine FUMARATE 200 MG TABLET PO SCH (21:28)
[2020-07-31] MEDS: LEVOTHYROXINE SODIUM 25 MCG TABLET PO SCH (06:14)
[2020-07-31] MEDS: PANTOPRAZOLE SODIUM 40 MG DR TABLET PO SCH (08:18)
[2020-07-31] MEDS: ESCITALOPRAM OXALATE 20 MG TABLET PO SCH (08:18)
[2020-07-31] MEDS: LamoTRIgine 100 MG TABLET PO SCH (08:18)
[2020-07-31] MEDS: MULTIVITAMINS WITH MINERALS, THERAPEUTIC TABLET PO SCH (08:18)
[2020-07-31] MEDS: VENLAFAXINE HCL 75 MG ER CAPSULE PO SCH (08:18)
[2020-07-31 08:45] VITALS: BP 117/67
[2020-07-31 16:24] VITALS: BP 139/83
[2020-07-31] MEDS: PETROLATUM,WHITE 28 GM JELLY TP PRN (21:14)
[2020-07-31] MEDS: QUEtiapine FUMARATE 200 MG TABLET PO SCH (21:14)
[2020-08-01] MEDS: LEVOTHYROXINE SODIUM 25 MCG TABLET PO SCH (06:28)
[2020-08-01 06:49] VITALS: BP 101/65
[2020-08-01 08:28] VITALS: BP 115/67
[2020-08-01] MEDS: LamoTRIgine 100 MG TABLET PO SCH (08:28)
[2020-08-01] MEDS: MULTIVITAMINS WITH MINERALS, THERAPEUTIC TABLET PO SCH (08:28)
[2020-08-01] MEDS: PANTOPRAZOLE SODIUM 40 MG DR TABLET PO SCH (08:28)
[2020-08-01] MEDS: ESCITALOPRAM OXALATE 20 MG TABLET PO SCH (08:28)
[2020-08-01] MEDS: VENLAFAXINE HCL 75 MG ER CAPSULE PO SCH (08:28)
[2020-08-01 16:30] VITALS: BP 122/80
[2020-08-01] MEDS: QUEtiapine FUMARATE 200 MG TABLET PO SCH (21:27)
[2020-08-01] MEDS: PETROLATUM,WHITE 28 GM JELLY TP PRN (21:27)
[2020-08-02 00:55] VITALS: BP 120/76
[2020-08-02] MEDS: LEVOTHYROXINE SODIUM 25 MCG TABLET PO SCH (06:17)
[2020-08-02] MEDS: VENLAFAXINE HCL 75 MG ER CAPSULE PO SCH (08:40)
[2020-08-02] MEDS: ESCITALOPRAM OXALATE 20 MG TABLET PO SCH (08:40)
[2020-08-02] MEDS: LamoTRIgine 100 MG TABLET PO SCH (08:40)
[2020-08-02] MEDS: MULTIVITAMINS WITH MINERALS, THERAPEUTIC TABLET PO SCH (08:40)
[2020-08-02] MEDS: PANTOPRAZOLE SODIUM 40 MG DR TABLET PO SCH (08:40)
[2020-08-02 08:42] VITALS: BP 115/71
[2020-08-02 16:48] VITALS: BP 116/77
[2020-08-02] MEDS: DiphenhydrAMINE HCL 25 MG CAPSULE PO PRN (21:44)
[2020-08-02] MEDS: QUEtiapine FUMARATE 200 MG TABLET PO SCH (21:45)
[2020-08-02] MEDS: PETROLATUM,WHITE 28 GM JELLY TP PRN (21:49)
[2020-08-03] MEDS: LEVOTHYROXINE SODIUM 25 MCG TABLET PO SCH (06:30)
[2020-08-03] MEDS: LamoTRIgine 100 MG TABLET PO SCH (09:03)
[2020-08-03] MEDS: PANTOPRAZOLE SODIUM 40 MG DR TABLET PO SCH (09:03)
[2020-08-03] MEDS: MULTIVITAMINS WITH MINERALS, THERAPEUTIC TABLET PO SCH (09:03)
[2020-08-03] MEDS: VENLAFAXINE HCL 75 MG ER CAPSULE PO SCH (09:03)
[2020-08-03] MEDS: ESCITALOPRAM OXALATE 20 MG TABLET PO SCH (09:03)
[2020-08-03 16:25] VITALS: BP 126/76
[2020-08-03] MEDS: QUEtiapine FUMARATE 200 MG TABLET PO SCH (21:19)
[2020-08-03] MEDS: PETROLATUM,WHITE 28 GM JELLY TP PRN (21:21)
[2020-08-04 00:55] VITALS: BP 119/73
[2020-08-04] MEDS: LEVOTHYROXINE SODIUM 25 MCG TABLET PO SCH (07:03)
[2020-08-04 08:15] VITALS: BP 115/68
[2020-08-04] MEDS: MULTIVITAMINS WITH MINERALS, THERAPEUTIC TABLET PO SCH (08:44)
[2020-08-04] MEDS: LamoTRIgine 100 MG TABLET PO SCH (08:45)
[2020-08-04] MEDS: PANTOPRAZOLE SODIUM 40 MG DR TABLET PO SCH (08:45)
[2020-08-04] MEDS: ESCITALOPRAM OXALATE 20 MG TABLET PO SCH (08:45)
[2020-08-04] MEDS: VENLAFAXINE HCL 75 MG ER CAPSULE PO SCH (08:45)
[2020-08-04] MEDS ORDERED: LAMO100T56 PO (09:12)
[2020-08-04] MEDS ORDERED: VENL-68 PO (09:12)
[2020-08-04] MEDS ORDERED: QUET200T PO (09:12)
[2020-08-04] MEDS ORDERED: ESCI20TA87 PO (09:12)
[2020-08-04] MEDS ORDERED: LEVO25TA9 PO (09:13)
[2020-08-04] MEDS ORDERED: PANT-31 PO (09:13)
== END 2020-08-04 13:39 | disposition home or self-care (01) | DRG 753 ==
LOC: EMS 14:35 → B2S 17:58
DX: F31.4 Bipolar disorder, current episode depressed, severe, without psychotic features (principal); F10.10 Alcohol abuse, uncomplicated; J30.9 Allergic rhinitis, unspecified; F14.90 Cocaine use, unspecified, uncomplicated; F22 Delusional disorders; R45.851 Suicidal ideations; Z20.822 Contact with and (suspected) exposure to COVID-19; D69.6 Thrombocytopenia, unspecified; G47.9 Sleep disorder, unspecified; Z59.0 Homelessness; Z79.899 Other long term (current) drug therapy; Z88.8 Allergy status to other drugs, medicaments and biological substances
CPT/HCPCS: 84439; 84443; 87426; 99285; G0480

== ENCOUNTER 2020-10-16 15:08 | Inpatient (IN) | payer MEDICAID ==
[~2020-10-16] VITALS: Ht 180.3 cm; Wt 91.9 kg
[~2020-10-16 15:08] MED LIST changes: -AZITH500IV IV; -CIPOTIC AS; +ESCI20TA87 PO; -FLUT16H NASAL; -LAMO100 PO; +LAMO100T56 PO; +LEVO25TA9 PO; -LITH300C3 PO; +PANT-31 PO; -QUET100T PO; +QUET200T PO; -VENL-193 PO; +VENL-68 PO
[2020-10-16] MEDS ORDERED: LORazepam 2 MG TABLET PO PRN (19:00)
[2020-10-16] MEDS ORDERED: QUEtiapine FUMARATE 100 MG TABLET PO PRN (19:00)
[2020-10-16 19:06] VITALS: BP 132/64
[2020-10-16 20:05] LABS: COVID AG,FIA SOURCE NASOPHARYNGEAL
[2020-10-16 21:21] VITALS: BP 148/84
[2020-10-16] MEDS: ZOLPIDEM TARTRATE 10 MG TABLET PO PRN (21:48)
[2020-10-17 06:10] VITALS: BP 100/62
[2020-10-17 06:12] VITALS: BP 101/63
[2020-10-17] MEDS ORDERED: CloNIDine HCL 0.1 MG TABLET PO PRN (06:45)
[2020-10-17] MEDS ORDERED: LOPERAMIDE HCL 2 MG CAPSULE PO PRN (06:45)
[2020-10-17] MEDS ORDERED: ALBUTEROL SULFATE HFA 90 MCG/PUFF 8 GM INHALER IH PRN (06:45)
[2020-10-17] MEDS ORDERED: DOCUSATE SODIUM 100 MG CAPSULE PO PRN (06:45)
[2020-10-17] MEDS ORDERED: MAGNESIUM HYDROXIDE SUSPENSION 30 ML UDCUP PO PRN (06:45)
[2020-10-17] MEDS ORDERED: NICOTINE 14 MG/24 HOUR PATCH TD PRN (06:45)
[2020-10-17] MEDS ORDERED: PETROLATUM,WHITE 28 GM JELLY TP PRN (06:45)
[2020-10-17] MEDS ORDERED: GuaiFENesin/D-METHORPHAN [SUGAR-FREE] 200-20MG/10 ML SYRUP UDCUP PO PRN (06:45)
[2020-10-17] MEDS ORDERED: ONDANSETRON HCL 4 MG TABLET PO PRN (06:45)
[2020-10-17 08:18] LABS: BASOPHILS % (AUTO) 0.9 % (0.0-2.0); EOSINOPHILS % (AUTO) 4.6 % (1.0-6.0); HEMATOCRIT 42.6 % (41-53); HEMOGLOBIN 14.6 g/dL (13.5-17.5); LYMPHOCYTES # (AUTO) 1.7 K/uL (1.0-4.8); LYMPHOCYTES % (AUTO) 25.2 % (22.0-44.0); MEAN CORPUSCULAR HGB CONC 34.4 G/dL (31.0-37.0); MEAN CORPUSCULAR VOLUME 93 fL (80-100); MONOCYTES # (AUTO) 0.7 K/uL (0.1-1.0); MONOCYTES % (AUTO) 10.6 % (2.0-9.0); NEUTROPHILS # (AUTO) 3.9 K/uL (1.8-7.7); NEUTROPHILS % (AUTO) 58.7 % (40.0-70.0); PLATELET COUNT (AUTO) 120 K/uL (150-450); RED BLOOD CELL COUNT(AUTO) 4.57 MIL/uL (4.50-5.90); RED CELL DISTRIBUTION WIDTH 13.5 % (11.5-14.5)
[2020-10-17 08:50] LABS: ALANINE AMINOTRANSFERASE 36 U/L (12-78); ALBUMIN 3.7 g/dL (3.4-5.0); ALKALINE PHOSPHATASE 63 U/L (46-116); ANION GAP 11 mmol/L (8-16); ASPARTATE AMINOTRANSFERASE 25 U/L (15-37); BILIRUBIN,TOTAL 0.5 mg/dL (0.1-1.0); CALCIUM, TOTAL 8.7 mg/dL (8.8-10.5); CARBON DIOXIDE 23 mmol/L (22-29); CHLORIDE 105 mmol/L (98-107); CHOL/HDL RATIO 5.3 (4.2-7.3); CHOLESTEROL 148 mg/dL (131-200); CREATININE 0.93 mg/dL (0.60-1.30); FREE T4 (FREE THYROXINE) 0.73 ng/dL (0.76-1.46); GLOMERULAR FILTR. RATE CALC > 60 mL/min (>60); GLUCOSE,RANDOM 85 mg/dL (70-110); HDL CHOLESTEROL 28 mg/dL (40-60); LDL CHOL (CALC.) 82 mg/dL (0-130); POTASSIUM 3.7 mmol/L (3.5-5.1); SODIUM SERUM 139 mmol/L (136-145); THYROID STIMULATING HORMONE 4.43 uIU/mL (0.36-3.74); TRIGLYCERIDES 188 mg/dL (15-150); UREA NITROGEN, BLOOD 21 mg/dL (7-18)
[2020-10-17] MEDS: PANTOPRAZOLE SODIUM 40 MG DR TABLET PO SCH (09:00)
[2020-10-17 09:03] VITALS: BP 109/63
[2020-10-17] MEDS: LamoTRIgine 100 MG TABLET PO SCH (12:50)
[2020-10-17] MEDS: VENLAFAXINE HCL 150 MG ER CAPSULE PO SCH (13:00)
[2020-10-17 16:12] VITALS: BP 118/67
[2020-10-17] MEDS: ZOLPIDEM TARTRATE 10 MG TABLET PO PRN (21:34)
[2020-10-17] MEDS: QUEtiapine FUMARATE 100 MG TABLET PO SCH (21:34)
[2020-10-18 01:03] VITALS: BP 123/73
[2020-10-18] MEDS: LEVOTHYROXINE SODIUM 25 MCG TABLET PO SCH (06:41)
[2020-10-18 08:52] VITALS: BP 130/80
[2020-10-18] MEDS: PANTOPRAZOLE SODIUM 40 MG DR TABLET PO SCH ×2 (09:00→09:05)
[2020-10-18] MEDS: LamoTRIgine 100 MG TABLET PO SCH (09:05)
[2020-10-18] MEDS: VENLAFAXINE HCL 150 MG ER CAPSULE PO SCH (09:05)
[2020-10-18 16:17] VITALS: BP 137/77
[2020-10-18] MEDS: ZOLPIDEM TARTRATE 10 MG TABLET PO PRN (21:29)
[2020-10-18] MEDS: QUEtiapine FUMARATE 100 MG TABLET PO SCH (21:29)
[2020-10-19 02:25] VITALS: BP 120/63
[2020-10-19] MEDS: LEVOTHYROXINE SODIUM 25 MCG TABLET PO SCH (06:28)
[2020-10-19 08:28] VITALS: BP 125/77
[2020-10-19] MEDS: LamoTRIgine 100 MG TABLET PO SCH (09:16)
[2020-10-19] MEDS: VENLAFAXINE HCL 150 MG ER CAPSULE PO SCH (09:17)
[2020-10-19 16:16] VITALS: BP 138/85
[2020-10-19] MEDS: QUEtiapine FUMARATE 100 MG TABLET PO SCH (21:03)
[2020-10-19] MEDS: ZOLPIDEM TARTRATE 10 MG TABLET PO PRN (21:03)
[2020-10-20 00:48] VITALS: BP 121/78
[2020-10-20] MEDS: LEVOTHYROXINE SODIUM 25 MCG TABLET PO SCH (06:16)
[2020-10-20] MEDS: LamoTRIgine 100 MG TABLET PO SCH (08:39)
[2020-10-20] MEDS: VENLAFAXINE HCL 150 MG ER CAPSULE PO SCH (08:40)
[2020-10-20] MEDS: OMEGA-3/DHA/EPA/FISH OIL 1,000 MG CAPSULE PO SCH (08:46)
[2020-10-20 08:55] VITALS: BP 120/59
[2020-10-20] MEDS: GABAPENTIN 300 MG CAPSULE PO SCH ×2 (08:57→16:42)
[2020-10-20 16:31] VITALS: BP 122/74
[2020-10-20] MEDS: DiphenhydrAMINE HCL 25 MG CAPSULE PO PRN (20:56)
[2020-10-20] MEDS: QUEtiapine FUMARATE 100 MG TABLET PO SCH (21:32)
[2020-10-21 02:23] VITALS: BP 110/74
[2020-10-21] MEDS: ZOLPIDEM TARTRATE 10 MG TABLET PO PRN ×2 (02:28→21:40)
[2020-10-21] MEDS: LEVOTHYROXINE SODIUM 25 MCG TABLET PO SCH (06:48)
[2020-10-21 07:53] LABS: COVID AG,FIA SOURCE NASOPHARYNGEAL
[2020-10-21 08:14] VITALS: BP 125/74
[2020-10-21] MEDS: GABAPENTIN 300 MG CAPSULE PO SCH ×2 (08:54→16:05)
[2020-10-21] MEDS: VENLAFAXINE HCL 150 MG ER CAPSULE PO SCH (08:54)
[2020-10-21] MEDS: LamoTRIgine 100 MG TABLET PO SCH (08:54)
[2020-10-21] MEDS: OMEGA-3/DHA/EPA/FISH OIL 1,000 MG CAPSULE PO SCH (09:00)
[2020-10-21] MEDS ORDERED: DiphenhydrAMINE HCL 25 MG CAPSULE PO PRN (09:00)
[2020-10-21] MEDS: IBUPROFEN 400 MG TABLET PO PRN (10:38)
[2020-10-21 10:45] VITALS: BP 136/75
[2020-10-21] MEDS: DiphenhydrAMINE HCL 25 MG CAPSULE PO PRN (16:06)
[2020-10-21 16:22] VITALS: BP 130/69
[2020-10-21] MEDS: QUEtiapine FUMARATE 100 MG TABLET PO SCH (21:40)
[2020-10-22 04:33] VITALS: BP 129/71
[2020-10-22] MEDS: LEVOTHYROXINE SODIUM 25 MCG TABLET PO SCH (06:47)
[2020-10-22 08:22] VITALS: BP 121/74
[2020-10-22 08:23] LABS: APPEARANCE,URINE CLEAR (CLEAR); BILIRUBIN,URINE NEGATIVE (NEGATIVE); GLUCOSE, URINE (UA) NEGATIVE (NEGATIVE); KETONES,URINE NEGATIVE (NEGATIVE); LEUKOCYTE ESTERASE ,URINE NEGATIVE (NEGATIVE); NITRATE,URINE NEGATIVE (NEGATIVE); OCCULT BLOOD,URINE NEGATIVE (NEGATIVE); PROTEIN,URINE NEGATIVE (NEGATIVE); UROBILINOGEN,URINE 0.2 mg/dL (<=1.0)
[2020-10-22 08:30] LABS: AMPHET/METH SCREEN,URINE NEGATIVE (NEGATIVE); BARBITURATE SCREEN, URINE NEGATIVE (NEGATIVE); BENZODIAZEPINES SCREEN,URINE NEGATIVE (NEGATIVE); CANNABINOID SCREEN,URINE NEGATIVE (NEGATIVE); COCAINE SCREEN,URINE NEGATIVE (NEGATIVE); METHADONE SCREEN, URINE NEGATIVE (NEGATIVE); OPIATE SCREEN,URINE NEGATIVE (NEGATIVE)
[2020-10-22 08:31] LABS: PHENCYCLIDINE SCREEN,URINE NEGATIVE (NEGATIVE)
[2020-10-22] MEDS: LamoTRIgine 100 MG TABLET PO SCH (08:56)
[2020-10-22] MEDS: VENLAFAXINE HCL 150 MG ER CAPSULE PO SCH (08:56)
[2020-10-22] MEDS: GABAPENTIN 300 MG CAPSULE PO SCH ×2 (08:56→16:04)
[2020-10-22] MEDS: OMEGA-3/DHA/EPA/FISH OIL 1,000 MG CAPSULE PO SCH (09:00)
[2020-10-22 16:34] VITALS: BP 115/76
[2020-10-22] MEDS: MAG HYDROX/AL HYDROX/SIMETH ES 30 ML SUSPENSION UDCUP PO PRN (19:26)
[2020-10-22] MEDS: IBUPROFEN 400 MG TABLET PO PRN (19:26)
[2020-10-22] MEDS: QUEtiapine FUMARATE 100 MG TABLET PO SCH (20:03)
[2020-10-22] MEDS: DiphenhydrAMINE HCL 25 MG CAPSULE PO PRN (21:55)
[2020-10-23 05:07] VITALS: BP 118/72
[2020-10-23] MEDS: LEVOTHYROXINE SODIUM 25 MCG TABLET PO SCH (06:25)
[2020-10-23 08:56] VITALS: BP 120/68
[2020-10-23] MEDS: OMEGA-3/DHA/EPA/FISH OIL 1,000 MG CAPSULE PO SCH (09:00)
[2020-10-23] MEDS: LamoTRIgine 100 MG TABLET PO SCH (09:01)
[2020-10-23] MEDS: GABAPENTIN 300 MG CAPSULE PO SCH ×2 (09:01→16:42)
[2020-10-23] MEDS: VENLAFAXINE HCL 150 MG ER CAPSULE PO SCH (09:01)
[2020-10-23] MEDS: IBUPROFEN 400 MG TABLET PO PRN (19:10)
[2020-10-23 20:12] VITALS: BP 122/77
[2020-10-23] MEDS: QUEtiapine FUMARATE 25 MG TABLET PO SCH (21:29)
[2020-10-23] MEDS: ZOLPIDEM TARTRATE 10 MG TABLET PO PRN (21:29)
[2020-10-24 04:35] VITALS: BP 149/75
[2020-10-24] MEDS: LEVOTHYROXINE SODIUM 25 MCG TABLET PO SCH (06:46)
[2020-10-24 08:00] VITALS: BP 112/68
[2020-10-24 08:34] LABS: ALANINE AMINOTRANSFERASE 36 U/L (12-78); ALBUMIN 3.9 g/dL (3.4-5.0); ALKALINE PHOSPHATASE 70 U/L (46-116); ANION GAP 9 mmol/L (8-16); ASPARTATE AMINOTRANSFERASE 23 U/L (15-37); BILIRUBIN,TOTAL 0.6 mg/dL (0.1-1.0); CALCIUM, TOTAL 8.7 mg/dL (8.8-10.5); CARBON DIOXIDE 27 mmol/L (22-29); CHLORIDE 103 mmol/L (98-107); CREATININE 1.08 mg/dL (0.60-1.30); GLOMERULAR FILTR. RATE CALC > 60 mL/min (>60); GLUCOSE,RANDOM 80 mg/dL (70-110); LIPASE 165 U/L (73-393); POTASSIUM 4.2 mmol/L (3.5-5.1); SODIUM SERUM 139 mmol/L (136-145); UREA NITROGEN, BLOOD 15 mg/dL (7-18)
[2020-10-24] MEDS: LamoTRIgine 100 MG TABLET PO SCH (08:54)
[2020-10-24] MEDS: OMEGA-3/DHA/EPA/FISH OIL 1,000 MG CAPSULE PO SCH (08:54)
[2020-10-24] MEDS: GABAPENTIN 300 MG CAPSULE PO SCH ×2 (08:54→16:26)
[2020-10-24] MEDS: MULTIVITAMINS WITH IRON TABLET PO SCH (08:54)
[2020-10-24] MEDS: VENLAFAXINE HCL 150 MG ER CAPSULE PO SCH (08:54)
[2020-10-24] MEDS: BuPROPion HCL XL 150 MG ER TABLET PO SCH (12:27)
[2020-10-24 16:28] VITALS: BP 112/79
[2020-10-24] MEDS: IBUPROFEN 400 MG TABLET PO PRN (19:36)
[2020-10-24] MEDS: MAG HYDROX/AL HYDROX/SIMETH ES 30 ML SUSPENSION UDCUP PO PRN (20:58)
[2020-10-24] MEDS: QUEtiapine FUMARATE 25 MG TABLET PO SCH (21:38)
[2020-10-24] MEDS: ZOLPIDEM TARTRATE 10 MG TABLET PO PRN (21:38)
[2020-10-25 04:36] VITALS: BP 142/92
[2020-10-25] MEDS: LEVOTHYROXINE SODIUM 25 MCG TABLET PO SCH (06:18)
[2020-10-25 08:00] VITALS: BP 117/72
[2020-10-25] MEDS: GABAPENTIN 300 MG CAPSULE PO SCH (09:00)
[2020-10-25] MEDS: VENLAFAXINE HCL 150 MG ER CAPSULE PO SCH (09:00)
[2020-10-25] MEDS: MULTIVITAMINS WITH IRON TABLET PO SCH (09:00)
[2020-10-25] MEDS: OMEGA-3/DHA/EPA/FISH OIL 1,000 MG CAPSULE PO SCH (09:00)
[2020-10-25] MEDS: LamoTRIgine 100 MG TABLET PO SCH (09:00)
[2020-10-25] MEDS: BuPROPion HCL XL 150 MG ER TABLET PO SCH (09:00)
[2020-10-25] MEDS: MAG HYDROX/AL HYDROX/SIMETH ES 30 ML SUSPENSION UDCUP PO PRN (13:35)
[2020-10-25 16:42] VITALS: BP 121/77
[2020-10-25] MEDS: PANTOPRAZOLE SODIUM 40 MG DR TABLET PO SCH (19:05)
[2020-10-25] MEDS: DiphenhydrAMINE HCL 25 MG CAPSULE PO PRN (21:14)
[2020-10-25] MEDS: ZOLPIDEM TARTRATE 10 MG TABLET PO PRN (21:44)
[2020-10-25] MEDS: QUEtiapine FUMARATE 25 MG TABLET PO SCH (21:44)
[2020-10-26 03:33] VITALS: BP 137/93
[2020-10-26] MEDS: LEVOTHYROXINE SODIUM 25 MCG TABLET PO SCH (06:12)
[2020-10-26 08:25] VITALS: BP 127/73
[2020-10-26] MEDS: MULTIVITAMINS WITH IRON TABLET PO SCH (09:03)
[2020-10-26] MEDS: OMEGA-3/DHA/EPA/FISH OIL 1,000 MG CAPSULE PO SCH (09:03)
[2020-10-26] MEDS: BuPROPion HCL XL 150 MG ER TABLET PO SCH (09:03)
[2020-10-26] MEDS: LamoTRIgine 100 MG TABLET PO SCH (09:03)
[2020-10-26] MEDS: PANTOPRAZOLE SODIUM 40 MG DR TABLET PO SCH (09:03)
[2020-10-26] MEDS: VENLAFAXINE HCL 150 MG ER CAPSULE PO SCH (09:03)
[2020-10-26] MEDS: DiphenhydrAMINE HCL 25 MG CAPSULE PO PRN (12:59)
[2020-10-26 16:17] VITALS: BP 124/87
[2020-10-26] MEDS: QUEtiapine FUMARATE 25 MG TABLET PO SCH (21:34)
[2020-10-26] MEDS: ZOLPIDEM TARTRATE 10 MG TABLET PO PRN (21:34)
[2020-10-27] MEDS: LEVOTHYROXINE SODIUM 25 MCG TABLET PO SCH (06:28)
[2020-10-27 08:42] VITALS: BP 122/71
[2020-10-27] MEDS: LamoTRIgine 100 MG TABLET PO SCH (09:18)
[2020-10-27] MEDS: BuPROPion HCL XL 150 MG ER TABLET PO SCH (09:18)
[2020-10-27] MEDS: MULTIVITAMINS WITH IRON TABLET PO SCH (09:18)
[2020-10-27] MEDS: OMEGA-3/DHA/EPA/FISH OIL 1,000 MG CAPSULE PO SCH (09:18)
[2020-10-27] MEDS: PANTOPRAZOLE SODIUM 40 MG DR TABLET PO SCH (09:18)
[2020-10-27] MEDS: VENLAFAXINE HCL 150 MG ER CAPSULE PO SCH (09:19)
[2020-10-27] MEDS: IBUPROFEN 400 MG TABLET PO PRN ×2 (10:47→21:24)
[2020-10-27] MEDS: DiphenhydrAMINE HCL 25 MG CAPSULE PO PRN (13:32)
[2020-10-27 16:28] VITALS: BP 138/74
[2020-10-27] MEDS: GABAPENTIN 300 MG CAPSULE PO SCH (16:30)
[2020-10-27] MEDS: QUEtiapine FUMARATE 100 MG TABLET PO SCH (20:51)
[2020-10-27] MEDS: ZOLPIDEM TARTRATE 10 MG TABLET PO PRN (23:14)
[2020-10-28 06:34] VITALS: BP 126/78
[2020-10-28] MEDS: LEVOTHYROXINE SODIUM 25 MCG TABLET PO SCH (06:44)
[2020-10-28 07:46] LABS: COVID AG,FIA SOURCE NASOPHARYNGEAL
[2020-10-28 08:55] VITALS: BP 123/78
[2020-10-28] MEDS: BuPROPion HCL XL 150 MG ER TABLET PO SCH (09:28)
[2020-10-28] MEDS: PANTOPRAZOLE SODIUM 40 MG DR TABLET PO SCH (09:28)
[2020-10-28] MEDS: VENLAFAXINE HCL 150 MG ER CAPSULE PO SCH (09:28)
[2020-10-28] MEDS: GABAPENTIN 300 MG CAPSULE PO SCH ×2 (09:28→16:11)
[2020-10-28] MEDS: OMEGA-3/DHA/EPA/FISH OIL 1,000 MG CAPSULE PO SCH (09:29)
[2020-10-28] MEDS: MULTIVITAMINS WITH IRON TABLET PO SCH (09:29)
[2020-10-28] MEDS: LamoTRIgine 100 MG TABLET PO SCH (09:29)
[2020-10-28] MEDS: IBUPROFEN 400 MG TABLET PO PRN (12:10)
[2020-10-28 16:26] VITALS: BP 129/72
[2020-10-28] MEDS: DiphenhydrAMINE HCL 25 MG CAPSULE PO PRN (21:30)
[2020-10-28] MEDS: QUEtiapine FUMARATE 100 MG TABLET PO SCH (21:30)
[2020-10-29 01:03] VITALS: BP 120/73
[2020-10-29] MEDS: ZOLPIDEM TARTRATE 10 MG TABLET PO PRN (01:33)
[2020-10-29] MEDS: LEVOTHYROXINE SODIUM 25 MCG TABLET PO SCH (06:56)
[2020-10-29] MEDS: LamoTRIgine 100 MG TABLET PO SCH (08:47)
[2020-10-29] MEDS: PANTOPRAZOLE SODIUM 40 MG DR TABLET PO SCH (08:47)
[2020-10-29] MEDS: MULTIVITAMINS WITH IRON TABLET PO SCH (08:47)
[2020-10-29] MEDS: OMEGA-3/DHA/EPA/FISH OIL 1,000 MG CAPSULE PO SCH (08:47)
[2020-10-29] MEDS: GABAPENTIN 300 MG CAPSULE PO SCH ×2 (08:47→16:37)
[2020-10-29] MEDS: VENLAFAXINE HCL 150 MG ER CAPSULE PO SCH (08:47)
[2020-10-29] MEDS: BuPROPion HCL XL 150 MG ER TABLET PO SCH (08:47)
[2020-10-29 09:19] VITALS: BP 133/78
[2020-10-29 16:31] VITALS: BP 136/71
[2020-10-29] MEDS: QUEtiapine FUMARATE 100 MG TABLET PO SCH (21:31)
[2020-10-30 03:51] VITALS: BP 141/80
[2020-10-30] MEDS: LEVOTHYROXINE SODIUM 25 MCG TABLET PO SCH (06:23)
[2020-10-30 09:45] VITALS: BP 116/75
[2020-10-30] MEDS: VENLAFAXINE HCL 150 MG ER CAPSULE PO SCH (09:53)
[2020-10-30] MEDS: MULTIVITAMINS WITH IRON TABLET PO SCH (09:54)
[2020-10-30] MEDS: PANTOPRAZOLE SODIUM 40 MG DR TABLET PO SCH (09:54)
[2020-10-30] MEDS: OMEGA-3/DHA/EPA/FISH OIL 1,000 MG CAPSULE PO SCH (09:54)
[2020-10-30] MEDS: BuPROPion HCL XL 150 MG ER TABLET PO SCH (09:57)
[2020-10-30] MEDS: LamoTRIgine 100 MG TABLET PO SCH (09:57)
[2020-10-30] MEDS: GABAPENTIN 300 MG CAPSULE PO SCH ×2 (09:57→16:36)
[2020-10-30 16:17] VITALS: BP 131/74
[2020-10-30] MEDS: DiphenhydrAMINE HCL 25 MG CAPSULE PO PRN (21:34)
[2020-10-30] MEDS: QUEtiapine FUMARATE 100 MG TABLET PO SCH (21:34)
[2020-10-31 03:17] VITALS: BP 127/71
[2020-10-31] MEDS: LEVOTHYROXINE SODIUM 25 MCG TABLET PO SCH (06:26)
[2020-10-31] MEDS: VENLAFAXINE HCL 150 MG ER CAPSULE PO SCH (09:26)
[2020-10-31] MEDS: BuPROPion HCL XL 150 MG ER TABLET PO SCH (09:26)
[2020-10-31] MEDS: MULTIVITAMINS WITH IRON TABLET PO SCH (09:26)
[2020-10-31] MEDS: GABAPENTIN 300 MG CAPSULE PO SCH ×2 (09:26→16:09)
[2020-10-31] MEDS: LamoTRIgine 100 MG TABLET PO SCH (09:26)
[2020-10-31] MEDS: PANTOPRAZOLE SODIUM 40 MG DR TABLET PO SCH (09:26)
[2020-10-31] MEDS: OMEGA-3/DHA/EPA/FISH OIL 1,000 MG CAPSULE PO SCH (09:26)
[2020-10-31 09:56] VITALS: BP 135/90
[2020-10-31 16:28] VITALS: BP 121/80
[2020-10-31] MEDS: QUEtiapine FUMARATE 100 MG TABLET PO SCH (21:24)
[2020-11-01 00:41] VITALS: BP 130/77
[2020-11-01] MEDS: ZOLPIDEM TARTRATE 10 MG TABLET PO PRN ×2 (01:54→21:50)
[2020-11-01] MEDS: LEVOTHYROXINE SODIUM 25 MCG TABLET PO SCH (06:47)
[2020-11-01 09:09] VITALS: BP 122/73
[2020-11-01] MEDS: BuPROPion HCL XL 150 MG ER TABLET PO SCH (09:19)
[2020-11-01] MEDS: OMEGA-3/DHA/EPA/FISH OIL 1,000 MG CAPSULE PO SCH (09:19)
[2020-11-01] MEDS: MULTIVITAMINS WITH IRON TABLET PO SCH (09:19)
[2020-11-01] MEDS: PANTOPRAZOLE SODIUM 40 MG DR TABLET PO SCH (09:19)
[2020-11-01] MEDS: VENLAFAXINE HCL 150 MG ER CAPSULE PO SCH (09:19)
[2020-11-01] MEDS: GABAPENTIN 300 MG CAPSULE PO SCH ×2 (09:20→16:36)
[2020-11-01] MEDS: LamoTRIgine 100 MG TABLET PO SCH (09:22)
[2020-11-01 16:32] VITALS: BP 126/74
[2020-11-01] MEDS: QUEtiapine FUMARATE 100 MG TABLET PO SCH (21:49)
[2020-11-02 00:35] VITALS: BP 133/80
[2020-11-02] MEDS: LEVOTHYROXINE SODIUM 25 MCG TABLET PO SCH (06:52)
[2020-11-02 08:28] VITALS: BP 142/79
[2020-11-02] MEDS: MULTIVITAMINS WITH IRON TABLET PO SCH (08:40)
[2020-11-02] MEDS: LamoTRIgine 100 MG TABLET PO SCH (08:40)
[2020-11-02] MEDS: PANTOPRAZOLE SODIUM 40 MG DR TABLET PO SCH (08:40)
[2020-11-02] MEDS: GABAPENTIN 300 MG CAPSULE PO SCH ×2 (08:40→16:37)
[2020-11-02] MEDS: BuPROPion HCL XL 150 MG ER TABLET PO SCH (08:40)
[2020-11-02] MEDS: VENLAFAXINE HCL 150 MG ER CAPSULE PO SCH (08:40)
[2020-11-02] MEDS: OMEGA-3/DHA/EPA/FISH OIL 1,000 MG CAPSULE PO SCH (08:40)
[2020-11-02 16:33] VITALS: BP 130/79
[2020-11-02] MEDS: QUEtiapine FUMARATE 100 MG TABLET PO SCH (21:33)
[2020-11-03] MEDS: LEVOTHYROXINE SODIUM 25 MCG TABLET PO SCH (06:22)
[2020-11-03 06:49] VITALS: BP 113/76
[2020-11-03 08:16] VITALS: BP 112/68
[2020-11-03] MEDS: VENLAFAXINE HCL 150 MG ER CAPSULE PO SCH (08:51)
[2020-11-03] MEDS: OMEGA-3/DHA/EPA/FISH OIL 1,000 MG CAPSULE PO SCH (08:51)
[2020-11-03] MEDS: PANTOPRAZOLE SODIUM 40 MG DR TABLET PO SCH (08:51)
[2020-11-03] MEDS: BuPROPion HCL XL 150 MG ER TABLET PO SCH (08:51)
[2020-11-03] MEDS: LamoTRIgine 100 MG TABLET PO SCH (08:51)
[2020-11-03] MEDS: MULTIVITAMINS WITH IRON TABLET PO SCH (08:51)
[2020-11-03] MEDS: GABAPENTIN 300 MG CAPSULE PO SCH ×2 (08:52→16:56)
[2020-11-03] MEDS: DiphenhydrAMINE HCL 25 MG CAPSULE PO PRN (15:37)
[2020-11-03 16:23] VITALS: BP 120/75
[2020-11-03] MEDS ORDERED: PERMETHRIN 1% 60 ML LOTION TP ONE (17:30)
[2020-11-03] MEDS: QUEtiapine FUMARATE 100 MG TABLET PO SCH (21:34)
[2020-11-04 00:54] VITALS: BP 129/75
[2020-11-04] MEDS: LEVOTHYROXINE SODIUM 25 MCG TABLET PO SCH (06:24)
[2020-11-04 08:19] VITALS: BP 146/95
[2020-11-04 08:20] LABS: COVID AG,FIA SOURCE NASOPHARYNGEAL
[2020-11-04] MEDS: OMEGA-3/DHA/EPA/FISH OIL 1,000 MG CAPSULE PO SCH (08:24)
[2020-11-04] MEDS: MULTIVITAMINS WITH IRON TABLET PO SCH (08:24)
[2020-11-04] MEDS: BuPROPion HCL XL 150 MG ER TABLET PO SCH (08:24)
[2020-11-04] MEDS: PANTOPRAZOLE SODIUM 40 MG DR TABLET PO SCH (08:25)
[2020-11-04] MEDS: VENLAFAXINE HCL 150 MG ER CAPSULE PO SCH (08:25)
[2020-11-04] MEDS: GABAPENTIN 300 MG CAPSULE PO SCH ×2 (08:25→16:51)
[2020-11-04] MEDS: MAG HYDROX/AL HYDROX/SIMETH ES 30 ML SUSPENSION UDCUP PO PRN (14:46)
[2020-11-04 16:27] VITALS: BP 119/72
[2020-11-04] MEDS: QUEtiapine FUMARATE 100 MG TABLET PO SCH (21:32)
[2020-11-05 01:10] VITALS: BP 108/75
[2020-11-05] MEDS: LEVOTHYROXINE SODIUM 25 MCG TABLET PO SCH (06:22)
[2020-11-05 08:15] VITALS: BP 127/88
[2020-11-05] MEDS: MULTIVITAMINS WITH IRON TABLET PO SCH (09:20)
[2020-11-05] MEDS: BuPROPion HCL XL 150 MG ER TABLET PO SCH (09:20)
[2020-11-05] MEDS: VENLAFAXINE HCL 150 MG ER CAPSULE PO SCH (09:20)
[2020-11-05] MEDS: PANTOPRAZOLE SODIUM 40 MG DR TABLET PO SCH (09:20)
[2020-11-05] MEDS: GABAPENTIN 300 MG CAPSULE PO SCH ×2 (09:21→16:32)
[2020-11-05] MEDS: OMEGA-3/DHA/EPA/FISH OIL 1,000 MG CAPSULE PO SCH (09:21)
[2020-11-05] MEDS ORDERED: ZOLPIDEM TARTRATE 10 MG TABLET PO PRN (09:30)
[2020-11-05 16:33] VITALS: BP 133/77
[2020-11-05] MEDS: QUEtiapine FUMARATE 200 MG TABLET PO SCH (21:33)
[2020-11-05] MEDS: LORazepam 2 MG TABLET PO PRN (21:34)
[2020-11-06 01:30] VITALS: BP 138/80
[2020-11-06] MEDS: LEVOTHYROXINE SODIUM 25 MCG TABLET PO SCH (06:21)
[2020-11-06 08:37] VITALS: BP 123/77
[2020-11-06] MEDS: OMEGA-3/DHA/EPA/FISH OIL 1,000 MG CAPSULE PO SCH (08:56)
[2020-11-06] MEDS: PANTOPRAZOLE SODIUM 40 MG DR TABLET PO SCH (08:56)
[2020-11-06] MEDS: MULTIVITAMINS WITH IRON TABLET PO SCH (08:56)
[2020-11-06] MEDS: GABAPENTIN 300 MG CAPSULE PO SCH ×2 (08:56→16:37)
[2020-11-06] MEDS: VENLAFAXINE HCL 150 MG ER CAPSULE PO SCH (08:56)
[2020-11-06] MEDS: BuPROPion HCL XL 150 MG ER TABLET PO SCH (08:56)
[2020-11-06 16:18] VITALS: BP 126/80
[2020-11-06] MEDS: QUEtiapine FUMARATE 200 MG TABLET PO SCH (21:26)
[2020-11-06] MEDS: LORazepam 2 MG TABLET PO PRN (21:28)
[2020-11-07 01:05] VITALS: BP 136/89
[2020-11-07] MEDS: LEVOTHYROXINE SODIUM 25 MCG TABLET PO SCH (06:29)
[2020-11-07 08:30] VITALS: BP 116/69
[2020-11-07] MEDS: BuPROPion HCL XL 150 MG ER TABLET PO SCH (09:05)
[2020-11-07] MEDS: MULTIVITAMINS WITH IRON TABLET PO SCH (09:05)
[2020-11-07] MEDS: VENLAFAXINE HCL 150 MG ER CAPSULE PO SCH (09:05)
[2020-11-07] MEDS: OMEGA-3/DHA/EPA/FISH OIL 1,000 MG CAPSULE PO SCH (09:05)
[2020-11-07] MEDS: GABAPENTIN 300 MG CAPSULE PO SCH ×2 (09:05→16:26)
[2020-11-07] MEDS: PANTOPRAZOLE SODIUM 40 MG DR TABLET PO SCH (09:05)
[2020-11-07 16:19] VITALS: BP 131/79
[2020-11-07] MEDS: QUEtiapine FUMARATE 200 MG TABLET PO SCH (21:37)
[2020-11-08 00:59] VITALS: BP 128/85
[2020-11-08] MEDS: LORazepam 2 MG TABLET PO PRN (03:51)
[2020-11-08] MEDS: LEVOTHYROXINE SODIUM 25 MCG TABLET PO SCH (06:24)
[2020-11-08] MEDS: GABAPENTIN 300 MG CAPSULE PO SCH ×2 (09:08→16:50)
[2020-11-08] MEDS: OMEGA-3/DHA/EPA/FISH OIL 1,000 MG CAPSULE PO SCH (09:08)
[2020-11-08] MEDS: VENLAFAXINE HCL 150 MG ER CAPSULE PO SCH (09:08)
[2020-11-08] MEDS: BuPROPion HCL XL 150 MG ER TABLET PO SCH (09:09)
[2020-11-08] MEDS: PANTOPRAZOLE SODIUM 40 MG DR TABLET PO SCH (09:09)
[2020-11-08] MEDS: MULTIVITAMINS WITH IRON TABLET PO SCH (09:09)
[2020-11-08 09:25] VITALS: BP 112/70
[2020-11-08 16:35] VITALS: BP 121/76
[2020-11-08] MEDS: QUEtiapine FUMARATE 200 MG TABLET PO SCH (21:30)
[2020-11-08] MEDS: DiphenhydrAMINE HCL 25 MG CAPSULE PO PRN (21:33)
[2020-11-09 01:22] VITALS: BP 123/72
[2020-11-09] MEDS: LEVOTHYROXINE SODIUM 25 MCG TABLET PO SCH (06:23)
[2020-11-09 08:21] VITALS: BP 119/75
[2020-11-09] MEDS: PANTOPRAZOLE SODIUM 40 MG DR TABLET PO SCH (09:38)
[2020-11-09] MEDS: BuPROPion HCL XL 150 MG ER TABLET PO SCH (09:38)
[2020-11-09] MEDS: MULTIVITAMINS WITH IRON TABLET PO SCH (09:38)
[2020-11-09] MEDS: GABAPENTIN 300 MG CAPSULE PO SCH ×2 (09:38→16:29)
[2020-11-09] MEDS: OMEGA-3/DHA/EPA/FISH OIL 1,000 MG CAPSULE PO SCH (09:38)
[2020-11-09] MEDS: VENLAFAXINE HCL 150 MG ER CAPSULE PO SCH (09:38)
[2020-11-09 16:38] VITALS: BP 136/78
[2020-11-09] MEDS: QUEtiapine FUMARATE 200 MG TABLET PO SCH (20:39)
[2020-11-10 05:16] VITALS: BP 125/76
[2020-11-10] MEDS: LEVOTHYROXINE SODIUM 25 MCG TABLET PO SCH (06:45)
[2020-11-10 08:15] VITALS: BP 111/70
[2020-11-10] MEDS: BuPROPion HCL XL 150 MG ER TABLET PO SCH (08:39)
[2020-11-10] MEDS: MULTIVITAMINS WITH IRON TABLET PO SCH (08:39)
[2020-11-10] MEDS: OMEGA-3/DHA/EPA/FISH OIL 1,000 MG CAPSULE PO SCH (08:41)
[2020-11-10] MEDS: GABAPENTIN 300 MG CAPSULE PO SCH ×2 (08:44→16:26)
[2020-11-10] MEDS: PANTOPRAZOLE SODIUM 40 MG DR TABLET PO SCH (08:44)
[2020-11-10] MEDS: VENLAFAXINE HCL 150 MG ER CAPSULE PO SCH (08:45)
[2020-11-10] MEDS: MAG HYDROX/AL HYDROX/SIMETH ES 30 ML SUSPENSION UDCUP PO PRN (14:04)
[2020-11-10 16:13] VITALS: BP 131/87
[2020-11-10] MEDS: QUEtiapine FUMARATE 200 MG TABLET PO SCH (21:25)
[2020-11-11 00:42] VITALS: BP 102/54
[2020-11-11] MEDS: LEVOTHYROXINE SODIUM 25 MCG TABLET PO SCH (06:25)
[2020-11-11 07:26] LABS: COVID AG,FIA SOURCE NASOPHARYNGEAL
[2020-11-11 08:17] VITALS: BP 112/69
[2020-11-11] MEDS: VENLAFAXINE HCL 150 MG ER CAPSULE PO SCH (08:53)
[2020-11-11] MEDS: OMEGA-3/DHA/EPA/FISH OIL 1,000 MG CAPSULE PO SCH (08:54)
[2020-11-11] MEDS: GABAPENTIN 300 MG CAPSULE PO SCH (08:54)
[2020-11-11] MEDS: BuPROPion HCL XL 150 MG ER TABLET PO SCH (08:54)
[2020-11-11] MEDS: PANTOPRAZOLE SODIUM 40 MG DR TABLET PO SCH (08:54)
[2020-11-11] MEDS: MULTIVITAMINS WITH IRON TABLET PO SCH (08:54)
[2020-11-11] MEDS ORDERED: ValACYclovir HCL 500 MG TABLET PO SCH (09:00)
[2020-11-11] MEDS ORDERED: PANT-31 PO (11:20)
[2020-11-11] MEDS ORDERED: VALA500T42 PO (11:20)
[2020-11-11] MEDS ORDERED: GABA-1181 PO (11:20)
== END 2020-11-11 14:28 | disposition home or self-care (01) | DRG 753 ==
LOC: B2S 19:12
PROVIDERS: ADMIT Psychiatry & Neurology Psychiatry; ATTEND Psychiatry & Neurology Psychiatry
DX: F31.4 Bipolar disorder, current episode depressed, severe, without psychotic features (principal); K86.1 Other chronic pancreatitis; E03.9 Hypothyroidism, unspecified; I10 Essential (primary) hypertension; Z59.0 Homelessness; K21.9 Gastro-esophageal reflux disease without esophagitis; Z20.822 Contact with and (suspected) exposure to COVID-19
CPT/HCPCS: 80053; 80061; 80307; 81003; 83690; 84439; 84443; 85025; 86592; 87426

== ENCOUNTER 2022-02-01 10:14 | Inpatient (IN) | payer MEDICAID ==
[~2022-02-01] VITALS: Ht 180.3 cm; Wt 90.7 kg
[~2022-02-01 10:14] MED LIST changes: -ESCI20TA87 PO; +GABA-1181 PO; -LAMO100T56 PO; +VALA500T42 PO
[2022-02-01 11:06] LABS: BASOPHILS % (AUTO) 0.5 % (0.0-2.0); EOSINOPHILS % (AUTO) 2.3 % (1.0-6.0); HEMATOCRIT 43.8 % (41-53); LYMPHOCYTES # (AUTO) 1.4 K/uL (1.0-4.8); LYMPHOCYTES % (AUTO) 23.3 % (22.0-44.0); MEAN CORPUSCULAR HGB CONC 34.2 G/dL (31.0-37.0); MEAN CORPUSCULAR VOLUME 91 fL (80-100); MONOCYTES # (AUTO) 0.5 K/uL (0.1-1.0); MONOCYTES % (AUTO) 8.2 % (2.0-9.0); NEUTROPHILS # (AUTO) 3.8 K/uL (1.8-7.7); NEUTROPHILS % (AUTO) 65.7 % (40.0-70.0); PLATELET COUNT (AUTO) 112 K/uL (150-450); RED BLOOD CELL COUNT(AUTO) 4.83 MIL/uL (4.50-5.90); RED CELL DISTRIBUTION WIDTH 13.3 % (11.5-14.5)
[2022-02-01 11:14] LABS: ANION GAP 13 mmol/L (8-16); CALCIUM, TOTAL 9.4 mg/dL (8.8-10.5); CARBON DIOXIDE 24 mmol/L (22-29); CHLORIDE 103 mmol/L (98-107); CREATININE 1.09 mg/dL (0.60-1.30); GLUCOSE,RANDOM 120 mg/dL (70-110); POTASSIUM 3.7 mmol/L (3.5-5.1); SODIUM SERUM 140 mmol/L (136-145); UREA NITROGEN, BLOOD 15 mg/dL (7-18)
[2022-02-01 11:15] LABS: GLOMERULAR FILTR. RATE CALC > 60 mL/min (>60)
[2022-02-01 11:20] LABS: ALANINE AMINOTRANSFERASE 39 U/L (12-78); ALBUMIN 3.9 g/dL (3.4-5.0); ALKALINE PHOSPHATASE 93 U/L (46-116); ASPARTATE AMINOTRANSFERASE 25 U/L (15-37); BILIRUBIN,TOTAL 1.1 mg/dL (0.1-1.0); TOTAL PROTEIN, SERUM 7.6 g/dL (6.4-8.2)
[2022-02-01] MEDS ORDERED: AMLO5TAB66 PO (12:25)
[2022-02-01] MEDS ORDERED: OLANZapine 5 MG RAPDIS TABLET PO PRN (14:15)
[2022-02-01 16:45] VITALS: BP 118/80
[2022-02-01] MEDS ORDERED: FLUTICASONE PROPIONATE 50 MCG/SPRAY 16 GM NASAL SPRAY NASAL SCH (19:15)
[2022-02-01] MEDS: FLUTICASONE PROPIONATE 50 MCG/SPRAY 16 GM NASAL SPRAY NASAL SCH (20:23)
[2022-02-01] MEDS: ZOLPIDEM TARTRATE 10 MG TABLET PO PRN (20:54)
[2022-02-02] MEDS: LORazepam 2 MG TABLET PO PRN (03:14)
[2022-02-02] MEDS ORDERED: GuaiFENesin/D-METHORPHAN [SUGAR-FREE] 200-20MG/10 ML SYRUP UDCUP PO PRN (06:45)
[2022-02-02] MEDS ORDERED: NICOTINE 14 MG/24 HOUR PATCH TD PRN (06:45)
[2022-02-02] MEDS ORDERED: DOCUSATE SODIUM 100 MG CAPSULE PO PRN (06:45)
[2022-02-02] MEDS ORDERED: PETROLATUM,WHITE 28 GM JELLY TP PRN (06:45)
[2022-02-02] MEDS ORDERED: ONDANSETRON HCL 4 MG TABLET PO PRN (06:45)
[2022-02-02] MEDS ORDERED: MAG HYDROX/AL HYDROX/SIMETH ES 30 ML SUSPENSION UDCUP PO PRN (06:45)
[2022-02-02] MEDS ORDERED: MAGNESIUM HYDROXIDE SUSPENSION 30 ML UDCUP PO PRN (06:45)
[2022-02-02] MEDS ORDERED: CloNIDine HCL 0.1 MG TABLET PO PRN (06:45)
[2022-02-02] MEDS ORDERED: ALBUTEROL SULFATE HFA 90 MCG/PUFF 8 GM INHALER IH PRN (06:45)
[2022-02-02] MEDS ORDERED: LOPERAMIDE HCL 2 MG CAPSULE PO PRN (06:45)
[2022-02-02] MEDS: LEVOTHYROXINE SODIUM 25 MCG TABLET PO SCH (07:00)
[2022-02-02 08:02] VITALS: BP 130/81
[2022-02-02] MEDS: FLUTICASONE PROPIONATE 50 MCG/SPRAY 16 GM NASAL SPRAY NASAL SCH ×2 (08:48→16:02)
[2022-02-02] MEDS: AmLODIPine BESYLATE 5 MG TABLET PO SCH (08:49)
[2022-02-02] MEDS: PANTOPRAZOLE SODIUM 40 MG DR TABLET PO SCH (08:49)
[2022-02-02] MEDS: MULTIVITAMINS WITH MINERALS, THERAPEUTIC TABLET PO SCH (16:02)
[2022-02-02 16:17] VITALS: BP 142/86
[2022-02-02] MEDS: GABAPENTIN 300 MG CAPSULE PO SCH (16:21)
[2022-02-02 16:51] LABS: APPEARANCE,URINE CLEAR (CLEAR); BILIRUBIN,URINE NEGATIVE (NEGATIVE); GLUCOSE, URINE (UA) NEGATIVE (NEGATIVE); KETONES,URINE NEGATIVE (NEGATIVE); LEUKOCYTE ESTERASE ,URINE NEGATIVE (NEGATIVE); NITRATE,URINE NEGATIVE (NEGATIVE); OCCULT BLOOD,URINE NEGATIVE (NEGATIVE); PH,URINE 6.5 (5.0-8.0); PROTEIN,URINE NEGATIVE (NEGATIVE); SPECIFIC GRAVITIY, URINE 1.011 (1.003-1.030); UROBILINOGEN,URINE <=1.0 mg/dL (<=1.0)
[2022-02-02 16:57] LABS: AMPHET/METH SCREEN,URINE NEGATIVE (NEGATIVE); BARBITURATE SCREEN, URINE NEGATIVE (NEGATIVE); BENZODIAZEPINES SCREEN,URINE NEGATIVE (NEGATIVE); CANNABINOID SCREEN,URINE NEGATIVE (NEGATIVE); COCAINE SCREEN,URINE NEGATIVE (NEGATIVE); METHADONE SCREEN, URINE NEGATIVE (NEGATIVE); OPIATE SCREEN,URINE NEGATIVE (NEGATIVE)
[2022-02-02 16:58] LABS: PHENCYCLIDINE SCREEN,URINE NEGATIVE (NEGATIVE)
[2022-02-02] MEDS ORDERED: QUEtiapine FUMARATE 200 MG TABLET PO SCH (21:00)
[2022-02-02] MEDS: QUEtiapine FUMARATE 100 MG TABLET PO SCH (21:02)
[2022-02-03] MEDS: LEVOTHYROXINE SODIUM 25 MCG TABLET PO SCH (06:25)
[2022-02-03 08:02] VITALS: BP 113/70
[2022-02-03] MEDS: AmLODIPine BESYLATE 5 MG TABLET PO SCH (09:42)
[2022-02-03] MEDS: VENLAFAXINE HCL 150 MG ER CAPSULE PO SCH (09:42)
[2022-02-03] MEDS: MULTIVITAMINS WITH MINERALS, THERAPEUTIC TABLET PO SCH (09:42)
[2022-02-03] MEDS: GABAPENTIN 300 MG CAPSULE PO SCH ×2 (09:42→16:20)
[2022-02-03] MEDS: FLUTICASONE PROPIONATE 50 MCG/SPRAY 16 GM NASAL SPRAY NASAL SCH ×2 (09:42→16:20)
[2022-02-03] MEDS: PANTOPRAZOLE SODIUM 40 MG DR TABLET PO SCH (09:42)
[2022-02-03 16:11] VITALS: BP 117/77
[2022-02-03 17:01] LABS: COVID AG,FIA SOURCE NASAL SWAB
[2022-02-03] MEDS: QUEtiapine FUMARATE 100 MG TABLET PO SCH (20:55)
[2022-02-04] MEDS: DOXYCYCLINE HYCLATE 100 MG TABLET PO SCH ×3 (01:06→16:09)
[2022-02-04] MEDS: LEVOTHYROXINE SODIUM 25 MCG TABLET PO SCH (06:26)
[2022-02-04 08:02] VITALS: BP 110/68
[2022-02-04] MEDS: AmLODIPine BESYLATE 5 MG TABLET PO SCH (08:40)
[2022-02-04] MEDS: VENLAFAXINE HCL 150 MG ER CAPSULE PO SCH (08:40)
[2022-02-04] MEDS: FLUTICASONE PROPIONATE 50 MCG/SPRAY 16 GM NASAL SPRAY NASAL SCH ×2 (08:40→16:09)
[2022-02-04] MEDS: GABAPENTIN 300 MG CAPSULE PO SCH ×2 (08:40→16:08)
[2022-02-04] MEDS: MULTIVITAMINS WITH MINERALS, THERAPEUTIC TABLET PO SCH (08:40)
[2022-02-04] MEDS: PANTOPRAZOLE SODIUM 40 MG DR TABLET PO SCH (08:41)
[2022-02-04] MEDS: NEOMYCIN/BACITRACIN/POLYMYXIN B 30 GM OINTMENT TP SCH (16:08)
[2022-02-04 20:18] VITALS: BP 118/72
[2022-02-04 20:20] VITALS: BP 141/74
[2022-02-04] MEDS: IBUPROFEN 400 MG TABLET PO PRN (20:20)
[2022-02-04] MEDS: QUEtiapine FUMARATE 100 MG TABLET PO SCH (20:57)
[2022-02-04] MEDS ORDERED: ACYCLOVIR 200 MG CAPSULE PO SCH (21:15)
[2022-02-05] MEDS: LEVOTHYROXINE SODIUM 25 MCG TABLET PO SCH (06:59)
[2022-02-05 08:00] VITALS: BP 113/6
[2022-02-05] MEDS ORDERED: ACYCLOVIR 200 MG CAPSULE PO SCH (08:00)
[2022-02-05] MEDS: DOXYCYCLINE HYCLATE 100 MG TABLET PO SCH ×4 (09:00→17:00)
[2022-02-05] MEDS: GABAPENTIN 300 MG CAPSULE PO SCH ×2 (09:43→16:16)
[2022-02-05] MEDS: MULTIVITAMINS WITH MINERALS, THERAPEUTIC TABLET PO SCH (09:43)
[2022-02-05] MEDS: PANTOPRAZOLE SODIUM 40 MG DR TABLET PO SCH (09:43)
[2022-02-05] MEDS: AmLODIPine BESYLATE 5 MG TABLET PO SCH (09:44)
[2022-02-05] MEDS: FLUTICASONE PROPIONATE 50 MCG/SPRAY 16 GM NASAL SPRAY NASAL SCH ×2 (09:45→16:15)
[2022-02-05] MEDS: NEOMYCIN/BACITRACIN/POLYMYXIN B 30 GM OINTMENT TP SCH ×2 (09:46→16:17)
[2022-02-05] MEDS: VENLAFAXINE HCL 150 MG ER CAPSULE PO SCH (09:47)
[2022-02-05] MEDS: ACYCLOVIR 200 MG CAPSULE PO SCH ×2 (14:20→21:35)
[2022-02-05 16:08] VITALS: BP 108/69
[2022-02-05] MEDS: QUEtiapine FUMARATE 100 MG TABLET PO SCH (21:01)
[2022-02-06 06:00] VITALS: BP 130/71
[2022-02-06] MEDS: ACYCLOVIR 200 MG CAPSULE PO SCH ×3 (06:00→21:53)
[2022-02-06] MEDS: LEVOTHYROXINE SODIUM 25 MCG TABLET PO SCH (06:20)
[2022-02-06 08:00] VITALS: BP 141/88
[2022-02-06] MEDS: MULTIVITAMINS WITH MINERALS, THERAPEUTIC TABLET PO SCH (08:28)
[2022-02-06] MEDS: PANTOPRAZOLE SODIUM 40 MG DR TABLET PO SCH (08:28)
[2022-02-06] MEDS: GABAPENTIN 300 MG CAPSULE PO SCH ×2 (08:28→16:03)
[2022-02-06] MEDS: FLUTICASONE PROPIONATE 50 MCG/SPRAY 16 GM NASAL SPRAY NASAL SCH ×2 (08:28→16:03)
[2022-02-06] MEDS: NEOMYCIN/BACITRACIN/POLYMYXIN B 30 GM OINTMENT TP SCH ×2 (08:29→16:03)
[2022-02-06] MEDS: AmLODIPine BESYLATE 5 MG TABLET PO SCH (08:29)
[2022-02-06] MEDS: VENLAFAXINE HCL 75 MG ER CAPSULE PO SCH (08:29)
[2022-02-06] MEDS: DOXYCYCLINE HYCLATE 100 MG TABLET PO SCH ×2 (08:31→16:04)
[2022-02-06 16:00] VITALS: BP 113/70
[2022-02-06] MEDS: QUEtiapine FUMARATE 100 MG TABLET PO SCH (20:41)
[2022-02-07] MEDS: ACYCLOVIR 200 MG CAPSULE PO SCH ×3 (06:01→21:50)
[2022-02-07] MEDS: LEVOTHYROXINE SODIUM 25 MCG TABLET PO SCH (06:07)
[2022-02-07 08:14] VITALS: BP 109/74
[2022-02-07] MEDS: MULTIVITAMINS WITH MINERALS, THERAPEUTIC TABLET PO SCH (08:26)
[2022-02-07] MEDS: VENLAFAXINE HCL 75 MG ER CAPSULE PO SCH ×2 (08:26→18:06)
[2022-02-07] MEDS: PANTOPRAZOLE SODIUM 40 MG DR TABLET PO SCH (08:27)
[2022-02-07] MEDS: AmLODIPine BESYLATE 5 MG TABLET PO SCH (08:27)
[2022-02-07] MEDS: DOXYCYCLINE HYCLATE 100 MG TABLET PO SCH ×3 (08:27→17:00)
[2022-02-07] MEDS: FLUTICASONE PROPIONATE 50 MCG/SPRAY 16 GM NASAL SPRAY NASAL SCH ×2 (08:27→18:13)
[2022-02-07] MEDS: GABAPENTIN 300 MG CAPSULE PO SCH ×2 (08:27→18:13)
[2022-02-07] MEDS: NEOMYCIN/BACITRACIN/POLYMYXIN B 30 GM OINTMENT TP SCH ×2 (08:28→18:21)
[2022-02-07 16:25] VITALS: BP 117/74
[2022-02-07] MEDS: HYPROMELLOSE 0.5% 15 ML OPHTHALMIC SOLUTION OU PRN ×2 (18:20→22:11)
[2022-02-07] MEDS: QUEtiapine FUMARATE 100 MG TABLET PO SCH (21:49)
[2022-02-08] MEDS: LEVOTHYROXINE SODIUM 25 MCG TABLET PO SCH ×2 (06:57→06:59)
[2022-02-08] MEDS: ACYCLOVIR 200 MG CAPSULE PO SCH ×3 (06:58→21:39)
[2022-02-08] MEDS: DOXYCYCLINE HYCLATE 100 MG TABLET PO SCH ×2 (09:00→09:31)
[2022-02-08 09:15] VITALS: BP 127/78
[2022-02-08] MEDS: MULTIVITAMINS WITH MINERALS, THERAPEUTIC TABLET PO SCH (09:31)
[2022-02-08] MEDS: NEOMYCIN/BACITRACIN/POLYMYXIN B 30 GM OINTMENT TP SCH ×2 (09:31→16:27)
[2022-02-08] MEDS: AmLODIPine BESYLATE 5 MG TABLET PO SCH (09:31)
[2022-02-08] MEDS: GABAPENTIN 300 MG CAPSULE PO SCH ×2 (09:31→16:26)
[2022-02-08] MEDS: PANTOPRAZOLE SODIUM 40 MG DR TABLET PO SCH (09:31)
[2022-02-08] MEDS: FLUTICASONE PROPIONATE 50 MCG/SPRAY 16 GM NASAL SPRAY NASAL SCH ×2 (09:32→16:27)
[2022-02-08] MEDS: VENLAFAXINE HCL 75 MG ER CAPSULE PO SCH ×2 (09:32→16:26)
[2022-02-08] MEDS: HYPROMELLOSE 0.5% 15 ML OPHTHALMIC SOLUTION OU PRN ×2 (13:49→21:44)
[2022-02-08 16:37] VITALS: BP 110/67
[2022-02-08] MEDS: QUEtiapine FUMARATE 100 MG TABLET PO SCH (21:39)
[2022-02-08] MEDS: ZOLPIDEM TARTRATE 10 MG TABLET PO PRN (21:41)
[2022-02-09] MEDS: ACYCLOVIR 200 MG CAPSULE PO SCH ×4 (06:15→21:41)
[2022-02-09] MEDS: LEVOTHYROXINE SODIUM 25 MCG TABLET PO SCH (06:22)
[2022-02-09] MEDS: HYPROMELLOSE 0.5% 15 ML OPHTHALMIC SOLUTION OU PRN (08:54)
[2022-02-09] MEDS: NEOMYCIN/BACITRACIN/POLYMYXIN B 30 GM OINTMENT TP SCH ×2 (08:55→16:48)
[2022-02-09] MEDS: FLUTICASONE PROPIONATE 50 MCG/SPRAY 16 GM NASAL SPRAY NASAL SCH ×2 (08:55→16:48)
[2022-02-09] MEDS: MULTIVITAMINS WITH MINERALS, THERAPEUTIC TABLET PO SCH (08:58)
[2022-02-09] MEDS: PANTOPRAZOLE SODIUM 40 MG DR TABLET PO SCH (08:58)
[2022-02-09] MEDS: AmLODIPine BESYLATE 5 MG TABLET PO SCH (08:58)
[2022-02-09] MEDS: GABAPENTIN 300 MG CAPSULE PO SCH ×2 (08:59→16:48)
[2022-02-09] MEDS: VENLAFAXINE HCL 75 MG ER CAPSULE PO SCH ×2 (09:37→16:47)
[2022-02-09 11:29] LABS: COVID AG,FIA SOURCE NASOPHARYNGEAL
[2022-02-09] MEDS: ARIPiprazole 5 MG TABLET PO SCH (11:51)
[2022-02-09 16:28] VITALS: BP 114/69
[2022-02-09] MEDS: ZOLPIDEM TARTRATE 10 MG TABLET PO PRN (21:40)
[2022-02-09] MEDS: QUEtiapine FUMARATE 100 MG TABLET PO SCH (21:40)
[2022-02-10] MEDS: ACYCLOVIR 200 MG CAPSULE PO SCH ×3 (06:10→21:43)
[2022-02-10] MEDS: LEVOTHYROXINE SODIUM 25 MCG TABLET PO SCH (06:14)
[2022-02-10 08:17] VITALS: BP 116/56
[2022-02-10] MEDS: MULTIVITAMINS WITH MINERALS, THERAPEUTIC TABLET PO SCH (09:00)
[2022-02-10] MEDS: PANTOPRAZOLE SODIUM 40 MG DR TABLET PO SCH (09:01)
[2022-02-10] MEDS: ARIPiprazole 5 MG TABLET PO SCH (09:01)
[2022-02-10] MEDS: AmLODIPine BESYLATE 5 MG TABLET PO SCH (09:01)
[2022-02-10] MEDS: GABAPENTIN 300 MG CAPSULE PO SCH ×2 (09:01→16:21)
[2022-02-10] MEDS: VENLAFAXINE HCL 75 MG ER CAPSULE PO SCH ×2 (09:01→16:21)
[2022-02-10] MEDS: FLUTICASONE PROPIONATE 50 MCG/SPRAY 16 GM NASAL SPRAY NASAL SCH ×2 (09:03→16:21)
[2022-02-10] MEDS: NEOMYCIN/BACITRACIN/POLYMYXIN B 30 GM OINTMENT TP SCH ×2 (10:35→16:23)
[2022-02-10] MEDS: HYPROMELLOSE 0.5% 15 ML OPHTHALMIC SOLUTION OU PRN (16:22)
[2022-02-10 16:33] VITALS: BP 102/69
[2022-02-10] MEDS: ZOLPIDEM TARTRATE 10 MG TABLET PO PRN (21:43)
[2022-02-10] MEDS: QUEtiapine FUMARATE 100 MG TABLET PO SCH (21:43)
[2022-02-11] MEDS: ACYCLOVIR 200 MG CAPSULE PO SCH ×3 (05:48→21:55)
[2022-02-11] MEDS: LEVOTHYROXINE SODIUM 25 MCG TABLET PO SCH (06:26)
[2022-02-11 08:00] VITALS: BP 105/64
[2022-02-11] MEDS: GABAPENTIN 300 MG CAPSULE PO SCH ×2 (09:34→16:06)
[2022-02-11] MEDS: PANTOPRAZOLE SODIUM 40 MG DR TABLET PO SCH (09:34)
[2022-02-11] MEDS: AmLODIPine BESYLATE 5 MG TABLET PO SCH (09:35)
[2022-02-11] MEDS: ARIPiprazole 5 MG TABLET PO SCH (09:35)
[2022-02-11] MEDS: VENLAFAXINE HCL 75 MG ER CAPSULE PO SCH ×2 (09:35→16:05)
[2022-02-11] MEDS: MULTIVITAMINS WITH MINERALS, THERAPEUTIC TABLET PO SCH (09:35)
[2022-02-11] MEDS: FLUTICASONE PROPIONATE 50 MCG/SPRAY 16 GM NASAL SPRAY NASAL SCH ×2 (09:36→16:06)
[2022-02-11] MEDS: HYPROMELLOSE 0.5% 15 ML OPHTHALMIC SOLUTION OU PRN ×2 (09:38→21:54)
[2022-02-11] MEDS: NEOMYCIN/BACITRACIN/POLYMYXIN B 30 GM OINTMENT TP SCH ×2 (10:16→16:06)
[2022-02-11 16:01] VITALS: BP 112/62
[2022-02-11] MEDS: QUEtiapine FUMARATE 100 MG TABLET PO SCH (21:54)
[2022-02-11] MEDS: ZOLPIDEM TARTRATE 10 MG TABLET PO PRN (21:54)
[2022-02-12] MEDS: LEVOTHYROXINE SODIUM 25 MCG TABLET PO SCH (06:53)
[2022-02-12] MEDS: ACYCLOVIR 200 MG CAPSULE PO SCH ×3 (06:53→21:48)
[2022-02-12 08:00] VITALS: BP 104/63
[2022-02-12] MEDS: ARIPiprazole 5 MG TABLET PO SCH (08:42)
[2022-02-12] MEDS: FLUTICASONE PROPIONATE 50 MCG/SPRAY 16 GM NASAL SPRAY NASAL SCH ×2 (08:42→17:03)
[2022-02-12] MEDS: AmLODIPine BESYLATE 5 MG TABLET PO SCH ×2 (08:44→08:47)
[2022-02-12] MEDS: VENLAFAXINE HCL 75 MG ER CAPSULE PO SCH ×2 (08:44→17:02)
[2022-02-12] MEDS: GABAPENTIN 300 MG CAPSULE PO SCH ×2 (08:44→17:02)
[2022-02-12] MEDS: PANTOPRAZOLE SODIUM 40 MG DR TABLET PO SCH (08:44)
[2022-02-12] MEDS: MULTIVITAMINS WITH MINERALS, THERAPEUTIC TABLET PO SCH (08:44)
[2022-02-12] MEDS: NEOMYCIN/BACITRACIN/POLYMYXIN B 30 GM OINTMENT TP SCH ×2 (08:45→17:03)
[2022-02-12] MEDS: HYPROMELLOSE 0.5% 15 ML OPHTHALMIC SOLUTION OU PRN (13:58)
[2022-02-12 16:35] VITALS: BP 118/76
[2022-02-12] MEDS: QUEtiapine FUMARATE 100 MG TABLET PO SCH (21:48)
[2022-02-12] MEDS: ZOLPIDEM TARTRATE 10 MG TABLET PO PRN (21:49)
[2022-02-13] MEDS: LEVOTHYROXINE SODIUM 25 MCG TABLET PO SCH (06:47)
[2022-02-13] MEDS: ACYCLOVIR 200 MG CAPSULE PO SCH ×3 (06:47→21:44)
[2022-02-13 08:00] VITALS: BP 139/95
[2022-02-13] MEDS: AmLODIPine BESYLATE 5 MG TABLET PO SCH (08:47)
[2022-02-13] MEDS: MULTIVITAMINS WITH MINERALS, THERAPEUTIC TABLET PO SCH (08:47)
[2022-02-13] MEDS: GABAPENTIN 300 MG CAPSULE PO SCH ×2 (08:47→16:15)
[2022-02-13] MEDS: ARIPiprazole 5 MG TABLET PO SCH (08:47)
[2022-02-13] MEDS: FLUTICASONE PROPIONATE 50 MCG/SPRAY 16 GM NASAL SPRAY NASAL SCH ×2 (08:47→16:16)
[2022-02-13] MEDS: VENLAFAXINE HCL 75 MG ER CAPSULE PO SCH ×2 (08:47→16:15)
[2022-02-13] MEDS: PANTOPRAZOLE SODIUM 40 MG DR TABLET PO SCH (08:47)
[2022-02-13] MEDS: NEOMYCIN/BACITRACIN/POLYMYXIN B 30 GM OINTMENT TP SCH ×2 (08:48→16:16)
[2022-02-13] MEDS: HYPROMELLOSE 0.5% 15 ML OPHTHALMIC SOLUTION OU PRN ×2 (14:00→21:44)
[2022-02-13 16:43] VITALS: BP 114/77
[2022-02-13 20:09] VITALS: BP_SYST 112; BP_SYST 12; BP_DIAS 83
[2022-02-13] MEDS: QUEtiapine FUMARATE 100 MG TABLET PO SCH (21:45)
[2022-02-13] MEDS: IBUPROFEN 400 MG TABLET PO PRN (22:21)
[2022-02-14] MEDS: LORazepam 2 MG TABLET PO PRN (03:44)
[2022-02-14] MEDS: ACYCLOVIR 200 MG CAPSULE PO SCH ×3 (06:35→21:42)
[2022-02-14] MEDS: LEVOTHYROXINE SODIUM 25 MCG TABLET PO SCH (06:35)
[2022-02-14 08:48] VITALS: BP 137/83
[2022-02-14] MEDS: PANTOPRAZOLE SODIUM 40 MG DR TABLET PO SCH (09:17)
[2022-02-14] MEDS: GABAPENTIN 300 MG CAPSULE PO SCH ×2 (09:17→16:13)
[2022-02-14] MEDS: AmLODIPine BESYLATE 5 MG TABLET PO SCH (09:17)
[2022-02-14] MEDS: VENLAFAXINE HCL 75 MG ER CAPSULE PO SCH ×2 (09:17→16:13)
[2022-02-14] MEDS: ARIPiprazole 5 MG TABLET PO SCH (09:17)
[2022-02-14] MEDS: MULTIVITAMINS WITH MINERALS, THERAPEUTIC TABLET PO SCH (09:17)
[2022-02-14] MEDS: FLUTICASONE PROPIONATE 50 MCG/SPRAY 16 GM NASAL SPRAY NASAL SCH ×2 (09:18→16:13)
[2022-02-14] MEDS: NEOMYCIN/BACITRACIN/POLYMYXIN B 30 GM OINTMENT TP SCH ×2 (09:18→16:13)
[2022-02-14 13:59] LABS: HEMOGLOBIN A1C 5.3 % (3.8-5.6)
[2022-02-14 16:22] VITALS: BP 118/75
[2022-02-14] MEDS: QUEtiapine FUMARATE 100 MG TABLET PO SCH (21:42)
[2022-02-14] MEDS: ZOLPIDEM TARTRATE 10 MG TABLET PO PRN (21:47)
[2022-02-15 05:11] VITALS: BP 120/85
[2022-02-15] MEDS: ACYCLOVIR 200 MG CAPSULE PO SCH ×2 (06:46→14:00)
[2022-02-15] MEDS: LEVOTHYROXINE SODIUM 25 MCG TABLET PO SCH (06:46)
[2022-02-15] MEDS: VENLAFAXINE HCL 75 MG ER CAPSULE PO SCH (09:06)
[2022-02-15] MEDS: MULTIVITAMINS WITH MINERALS, THERAPEUTIC TABLET PO SCH (09:06)
[2022-02-15] MEDS: ARIPiprazole 5 MG TABLET PO SCH (09:06)
[2022-02-15] MEDS: GABAPENTIN 300 MG CAPSULE PO SCH (09:06)
[2022-02-15] MEDS: PANTOPRAZOLE SODIUM 40 MG DR TABLET PO SCH (09:06)
[2022-02-15] MEDS: FLUTICASONE PROPIONATE 50 MCG/SPRAY 16 GM NASAL SPRAY NASAL SCH (09:07)
[2022-02-15] MEDS: NEOMYCIN/BACITRACIN/POLYMYXIN B 30 GM OINTMENT TP SCH (09:07)
[2022-02-15] MEDS: AmLODIPine BESYLATE 5 MG TABLET PO SCH (09:07)
[2022-02-15] MEDS ORDERED: VENL-67 PO (12:43)
[2022-02-15] MEDS ORDERED: GABA-1181 PO (12:43)
[2022-02-15] MEDS ORDERED: QUET100T34 PO (12:43)
[2022-02-15] MEDS ORDERED: ARIP5TAB37 PO (12:43)
[2022-02-15] MEDS ORDERED: ACYC-138 PO (13:57)
== END 2022-02-15 10:30 | disposition home or self-care (01) | DRG 753 ==
LOC: EMS 10:16 → 3EI 14:43
PROVIDERS: ADMIT Psychiatry & Neurology Child & Adolescent Psychiatry; ATTEND Psychiatry & Neurology Child & Adolescent Psychiatry
DX: F31.4 Bipolar disorder, current episode depressed, severe, without psychotic features (principal); R45.851 Suicidal ideations; Z91.19 Patient's noncompliance with other medical treatment and regimen; E03.9 Hypothyroidism, unspecified; F41.9 Anxiety disorder, unspecified; G47.00 Insomnia, unspecified; I10 Essential (primary) hypertension; K21.9 Gastro-esophageal reflux disease without esophagitis; Z88.8 Allergy status to other drugs, medicaments and biological substances; Z20.822 Contact with and (suspected) exposure to COVID-19
CPT/HCPCS: 80053; 80307; 81003; 83036; 83690; 85025; 86592; 99285; G0480

== ENCOUNTER 2023-04-23 12:53 | Inpatient (IN) | payer MEDICAID, OTHER ==
[~2023-04-23] VITALS: Ht 177.8 cm; Wt 88.3 kg
[~2023-04-23 12:53] MED LIST changes: +ACYC-138 PO; +AMLO5TAB66 PO; +ARIP5TAB37 PO; +QUET100T34 PO; -QUET200T PO; -VALA500T42 PO; +VENL-67 PO; -VENL-68 PO
[2023-04-23 13:46] LABS: HEMATOCRIT 43.6 % (41-53); HEMOGLOBIN 14.9 g/dL (13.5-17.5); LYMPHOCYTES # (AUTO) 1.8 K/uL (1.0-4.8); LYMPHOCYTES % (AUTO) 26.1 % (22.0-44.0); MEAN CORPUSCULAR HEMOGLOBIN 31.9 pg (26.0-34.0); MEAN CORPUSCULAR HGB CONC 34.2 G/dL (31.0-37.0); MEAN CORPUSCULAR VOLUME 93 fL (80-100); MONOCYTES # (AUTO) 0.7 K/uL (0.1-1.0); MONOCYTES % (AUTO) 10.5 % (2.0-9.0); NEUTROPHILS # (AUTO) 4.2 K/uL (1.8-7.7); NEUTROPHILS % (AUTO) 59.4 % (40.0-70.0); PLATELET COUNT (AUTO) 128 K/uL (150-450); RED BLOOD CELL COUNT(AUTO) 4.68 MIL/uL (4.50-5.90); RED CELL DISTRIBUTION WIDTH 13.4 % (11.5-14.5)
[2023-04-23 13:52] LABS: COVID AG,FIA SOURCE NASAL SWAB
[2023-04-23 13:54] LABS: ANION GAP 14 mmol/L (8-16); CALCIUM, TOTAL 8.7 mg/dL (8.8-10.5); CARBON DIOXIDE 23 mmol/L (22-29); CHLORIDE 105 mmol/L (98-107); CREATININE 1.11 mg/dL (0.60-1.30); GLOMERULAR FILTR. RATE CALC > 60 mL/min (>60); GLUCOSE,RANDOM 133 mg/dL (70-110); POTASSIUM 3.4 mmol/L (3.5-5.1); SODIUM SERUM 142 mmol/L (136-145); UREA NITROGEN, BLOOD 12 mg/dL (7-18)
[2023-04-23 13:55] LABS: ALCOHOL, BLOOD (SERUM) < 3 mg/dL (0-10)
[2023-04-23 13:59] LABS: ALANINE AMINOTRANSFERASE 39 U/L (12-78); ALBUMIN 3.9 g/dL (3.4-5.0); ALKALINE PHOSPHATASE 81 U/L (46-116); ASPARTATE AMINOTRANSFERASE 26 U/L (15-37); BILIRUBIN,TOTAL 0.7 mg/dL (0.1-1.0); TOTAL PROTEIN, SERUM 7.6 g/dL (6.4-8.2)
[2023-04-23 14:14] LABS: SARS-COV2 (COVID) ANTIGEN,FIA Negative (Negative)
[2023-04-23 14:18] LABS: ALCOHOL, URINE DRUG SCREEN NEGATIVE (NEGATIVE); AMPHET/METH SCREEN,URINE NEGATIVE (NEGATIVE); BARBITURATE SCREEN, URINE NEGATIVE (NEGATIVE); BENZODIAZEPINES SCREEN,URINE NEGATIVE (NEGATIVE); CANNABINOID SCREEN,URINE NEGATIVE (NEGATIVE); COCAINE SCREEN,URINE NEGATIVE (NEGATIVE); METHADONE SCREEN, URINE NEGATIVE (NEGATIVE); OPIATE SCREEN,URINE NEGATIVE (NEGATIVE); PHENCYCLIDINE SCREEN,URINE NEGATIVE (NEGATIVE)
[2023-04-23] MEDS: ZOLPIDEM TARTRATE 10 MG TABLET PO PRN (22:29)
[2023-04-23] MEDS: OLANZapine 5 MG RAPDIS TABLET PO PRN (22:29)
[2023-04-24] MEDS ORDERED: INFLUENZA VIRUS VACCINE QVS 2023-24 (6MO+)/PF 60 MCG/0.5 ML SYRINGE IM. ONE (01:15)
[2023-04-24] MEDS ORDERED: PNEUMOCOCCAL VACCINE POLYVALENT 0.5 ML SYRINGE [PPSV23] IM. ONE (01:15)
[2023-04-24] MEDS ORDERED: POTASSIUM CHLORIDE 20 MEQ ER TABLET PO ONE (06:45)
[2023-04-24 08:45] VITALS: BP 117/68; PULSE 65; RESP 18; TEMP 97.5; O2SAT 95
[2023-04-24] MEDS ORDERED: MAGNESIUM HYDROXIDE SUSPENSION 30 ML UDCUP PO PRN (15:30)
[2023-04-24] MEDS ORDERED: DOCUSATE SODIUM 100 MG CAPSULE PO PRN (15:30)
[2023-04-24] MEDS ORDERED: ALBUTEROL SULFATE HFA 90 MCG/PUFF 8 GM INHALER IH PRN (15:30)
[2023-04-24] MEDS ORDERED: GuaiFENesin/D-METHORPHAN [SUGAR-FREE] 200-20MG/10 ML SYRUP UDCUP PO PRN (15:30)
[2023-04-24] MEDS ORDERED: LOPERAMIDE HCL 2 MG CAPSULE PO PRN (15:30)
[2023-04-24] MEDS ORDERED: ONDANSETRON HCL 4 MG TABLET PO PRN (15:30)
[2023-04-24] MEDS ORDERED: NICOTINE 14 MG/24 HOUR PATCH TD PRN (15:30)
[2023-04-24] MEDS ORDERED: CloNIDine HCL 0.1 MG TABLET PO PRN (15:30)
[2023-04-24] MEDS ORDERED: MAG HYDROX/ALUMINUM HYD/SIMETH ES 30 ML SUSPENSION UDCUP PO PRN (15:30)
[2023-04-24 20:09] VITALS: BP 121/84; PULSE 68; RESP 18; TEMP 98.1; O2SAT 97
[2023-04-24] MEDS: QUEtiapine FUMARATE 100 MG TABLET PO SCH (21:35)
[2023-04-25] MEDS: LEVOTHYROXINE SODIUM 25 MCG TABLET PO SCH (06:46)
[2023-04-25 08:42] VITALS: BP 116/73; PULSE 77; RESP 18; TEMP 97.8; O2SAT 95
[2023-04-25] MEDS: AmLODIPine BESYLATE 5 MG TABLET PO SCH (09:00)
[2023-04-25] MEDS ORDERED: PANTOPRAZOLE SODIUM 40 MG DR TABLET PO SCH (09:00)
[2023-04-25] MEDS ORDERED: PANTOPRAZOLE SODIUM 40 MG DR TABLET PO PRN (10:00)
[2023-04-25 20:31] VITALS: BP 124/73; PULSE 71; RESP 18; TEMP 98.1; O2SAT 100
[2023-04-25] MEDS: QUEtiapine FUMARATE 100 MG TABLET PO SCH (21:49)
[2023-04-25] MEDS: OLANZapine 5 MG RAPDIS TABLET PO PRN (23:15)
[2023-04-25] MEDS: ZOLPIDEM TARTRATE 10 MG TABLET PO PRN (23:15)
[2023-04-26] MEDS: LEVOTHYROXINE SODIUM 25 MCG TABLET PO SCH ×2 (06:02→06:30)
[2023-04-26 08:37] LABS: HEMOGLOBIN A1C 5.1 % (3.8-5.6)
[2023-04-26 08:59] VITALS: BP 121/71; PULSE 67; RESP 17; TEMP 97.4; O2SAT 96
[2023-04-26 08:59] LABS: CHOL/HDL RATIO 4.5 (4.2-7.3); POTASSIUM 3.7 mmol/L (3.5-5.1)
[2023-04-26 09:00] LABS: THYROID STIMULATING HORMONE 9.08 uIU/mL (0.36-3.74)
[2023-04-26] MEDS: AmLODIPine BESYLATE 5 MG TABLET PO SCH ×2 (09:00→09:03)
[2023-04-26 20:24] VITALS: BP 120/84; PULSE 89; RESP 18; TEMP 98.6; O2SAT 98
[2023-04-26] MEDS: QUEtiapine FUMARATE 100 MG TABLET PO SCH (21:35)
[2023-04-26] MEDS: ZOLPIDEM TARTRATE 10 MG TABLET PO PRN (21:40)
[2023-04-27] MEDS: LEVOTHYROXINE SODIUM 25 MCG TABLET PO SCH (06:27)
[2023-04-27] MEDS: AmLODIPine BESYLATE 5 MG TABLET PO SCH (09:00)
[2023-04-27 10:06] VITALS: BP 120/73; PULSE 73; RESP 16; TEMP 97.4; O2SAT 96
[2023-04-27 20:43] VITALS: BP 127/78; PULSE 62; RESP 18; TEMP 97.6; O2SAT 96
[2023-04-27] MEDS ORDERED: GuaiFENesin/D-METHORPHAN/PHENYLEPH 5 ML LIQUID ORAL.SYG PO PRN (20:45)
[2023-04-27] MEDS: QUEtiapine FUMARATE 100 MG TABLET PO SCH (21:44)
[2023-04-27] MEDS: OLANZapine 5 MG RAPDIS TABLET PO PRN (22:56)
[2023-04-28] MEDS: LEVOTHYROXINE SODIUM 25 MCG TABLET PO SCH (06:30)
[2023-04-28 08:13] VITALS: BP 115/72; PULSE 72; RESP 17; TEMP 98; O2SAT 97
[2023-04-28] MEDS: AmLODIPine BESYLATE 5 MG TABLET PO SCH (09:00)
[2023-04-28] MEDS: CEPHALEXIN MONOHYDRATE 500 MG CAPSULE PO SCH ×3 (09:28→21:39)
[2023-04-28] MEDS: AZITHROMYCIN 500 MG TABLET PO SCH (09:28)
[2023-04-28] MEDS ORDERED: CEPHALEXIN MONOHYDRATE 500 MG CAPSULE PO SCH (16:00)
[2023-04-28] MEDS: QUEtiapine FUMARATE 100 MG TABLET PO SCH (20:20)
[2023-04-28 21:12] VITALS: BP 117/75; PULSE 66; RESP 17; TEMP 97; O2SAT 98
[2023-04-28] MEDS: OLANZapine 5 MG RAPDIS TABLET PO PRN (21:56)
[2023-04-29] MEDS: LEVOTHYROXINE SODIUM 25 MCG TABLET PO SCH (06:17)
[2023-04-29] MEDS: CEPHALEXIN MONOHYDRATE 500 MG CAPSULE PO SCH ×4 (06:17→23:47)
[2023-04-29 08:30] VITALS: BP 109/73; PULSE 70; RESP 17; TEMP 97.7; O2SAT 96
[2023-04-29] MEDS: AZITHROMYCIN 500 MG TABLET PO SCH (08:47)
[2023-04-29] MEDS: AmLODIPine BESYLATE 5 MG TABLET PO SCH (08:48)
[2023-04-29] MEDS: SERTRALINE HCL 50 MG TABLET PO SCH (11:05)
[2023-04-29 20:27] VITALS: BP 124/82; PULSE 72; RESP 18; TEMP 97.5; O2SAT 96
[2023-04-29] MEDS: QUEtiapine FUMARATE 100 MG TABLET PO SCH (20:35)
[2023-04-30] MEDS: LEVOTHYROXINE SODIUM 25 MCG TABLET PO SCH (06:15)
[2023-04-30] MEDS: CEPHALEXIN MONOHYDRATE 500 MG CAPSULE PO SCH ×3 (06:15→22:01)
[2023-04-30 08:12] VITALS: BP 117/72; PULSE 63; RESP 17; TEMP 97.5; O2SAT 96
[2023-04-30] MEDS: AmLODIPine BESYLATE 5 MG TABLET PO SCH (09:00)
[2023-04-30] MEDS: SERTRALINE HCL 50 MG TABLET PO SCH (09:12)
[2023-04-30] MEDS: AZITHROMYCIN 500 MG TABLET PO SCH (09:12)
[2023-04-30 16:55] VITALS: RESP 18; O2SAT 96
[2023-04-30] MEDS: IBUPROFEN 400 MG TABLET PO PRN (16:55)
[2023-04-30 17:55] VITALS: RESP 18; O2SAT 96
[2023-04-30] MEDS: QUEtiapine FUMARATE 100 MG TABLET PO SCH (22:01)
[2023-04-30 22:10] VITALS: BP 119/76; PULSE 66; RESP 18; TEMP 98.1; O2SAT 98
[2023-05-01] MEDS: LEVOTHYROXINE SODIUM 25 MCG TABLET PO SCH (06:12)
[2023-05-01] MEDS: CEPHALEXIN MONOHYDRATE 500 MG CAPSULE PO SCH ×3 (06:12→21:22)
[2023-05-01] MEDS: AmLODIPine BESYLATE 5 MG TABLET PO SCH (09:00)
[2023-05-01] MEDS: SERTRALINE HCL 50 MG TABLET PO SCH (09:14)
[2023-05-01] MEDS: AZITHROMYCIN 500 MG TABLET PO SCH (09:14)
[2023-05-01 09:23] VITALS: BP 117/74; PULSE 71; RESP 17; TEMP 97.5; O2SAT 97
[2023-05-01 20:23] VITALS: BP 128/80; PULSE 67; RESP 17; TEMP 98.6; O2SAT 98
[2023-05-01] MEDS: QUEtiapine FUMARATE 100 MG TABLET PO SCH (21:22)
[2023-05-01] MEDS: ZOLPIDEM TARTRATE 10 MG TABLET PO PRN (23:54)
[2023-05-02] MEDS: LEVOTHYROXINE SODIUM 25 MCG TABLET PO SCH (06:30)
[2023-05-02] MEDS: CEPHALEXIN MONOHYDRATE 500 MG CAPSULE PO SCH ×3 (06:30→21:45)
[2023-05-02 08:12] VITALS: BP 118/66; PULSE 62; RESP 18; TEMP 97.8; O2SAT 96
[2023-05-02] MEDS: AmLODIPine BESYLATE 5 MG TABLET PO SCH (09:00)
[2023-05-02] MEDS: SERTRALINE HCL 50 MG TABLET PO SCH (09:23)
[2023-05-02] MEDS: AZITHROMYCIN 500 MG TABLET PO SCH (09:23)
[2023-05-02] MEDS: ZOLPIDEM TARTRATE 10 MG TABLET PO PRN (21:45)
[2023-05-02] MEDS: QUEtiapine FUMARATE 100 MG TABLET PO SCH (21:45)
[2023-05-02 22:28] VITALS: BP 124/86; PULSE 18; RESP 20; TEMP 97.4; O2SAT 99
[2023-05-02] MEDS: OLANZapine 5 MG RAPDIS TABLET PO PRN (23:07)
[2023-05-03] MEDS: CEPHALEXIN MONOHYDRATE 500 MG CAPSULE PO SCH ×3 (06:10→21:43)
[2023-05-03] MEDS: LEVOTHYROXINE SODIUM 25 MCG TABLET PO SCH (06:11)
[2023-05-03 08:28] VITALS: BP 124/78; PULSE 72; RESP 18; TEMP 98.2; O2SAT 96
[2023-05-03] MEDS: AmLODIPine BESYLATE 5 MG TABLET PO SCH (08:48)
[2023-05-03] MEDS: AZITHROMYCIN 500 MG TABLET PO SCH (08:48)
[2023-05-03] MEDS: SERTRALINE HCL 50 MG TABLET PO SCH (08:48)
[2023-05-03 21:12] VITALS: BP 124/77; PULSE 77; RESP 18; TEMP 97.6; O2SAT 95
[2023-05-03] MEDS: QUEtiapine FUMARATE 100 MG TABLET PO SCH (21:43)
[2023-05-03] MEDS: ZOLPIDEM TARTRATE 10 MG TABLET PO PRN (21:43)
[2023-05-04] MEDS: LEVOTHYROXINE SODIUM 25 MCG TABLET PO SCH (07:18)
[2023-05-04] MEDS: CEPHALEXIN MONOHYDRATE 500 MG CAPSULE PO SCH ×3 (07:19→20:36)
[2023-05-04 08:29] VITALS: BP 117/70; PULSE 74; RESP 19; TEMP 97.8; O2SAT 96
[2023-05-04] MEDS: AmLODIPine BESYLATE 5 MG TABLET PO SCH (09:00)
[2023-05-04] MEDS: AZITHROMYCIN 500 MG TABLET PO SCH (09:16)
[2023-05-04] MEDS: SERTRALINE HCL 50 MG TABLET PO SCH (09:16)
[2023-05-04] MEDS: QUEtiapine FUMARATE 100 MG TABLET PO SCH (20:36)
[2023-05-04 20:57] VITALS: BP 128/78; PULSE 62; RESP 18; TEMP 97.5; O2SAT 100
[2023-05-04] MEDS: DiphenhydrAMINE HCL 25 MG CAPSULE PO PRN (21:43)
[2023-05-05] MEDS: LEVOTHYROXINE SODIUM 25 MCG TABLET PO SCH ×2 (06:12→06:24)
[2023-05-05] MEDS: CEPHALEXIN MONOHYDRATE 500 MG CAPSULE PO SCH ×3 (06:12→21:38)
[2023-05-05 08:34] VITALS: BP 125/86; PULSE 80; RESP 18; TEMP 97.6; O2SAT 95
[2023-05-05] MEDS: SERTRALINE HCL 50 MG TABLET PO SCH (09:09)
[2023-05-05] MEDS: AZITHROMYCIN 500 MG TABLET PO SCH (09:09)
[2023-05-05 09:52] LABS: APPEARANCE,URINE CLEAR (CLEAR); BILIRUBIN,URINE NEGATIVE (NEGATIVE); COLOR,URINE LIGHT YELLOW (YELLOW); GLUCOSE, URINE (UA) NEGATIVE (NEGATIVE); KETONES,URINE NEGATIVE (NEGATIVE); LEUKOCYTE ESTERASE ,URINE NEGATIVE (NEGATIVE); NITRATE,URINE NEGATIVE (NEGATIVE); OCCULT BLOOD,URINE NEGATIVE (NEGATIVE); PH,URINE 6.5 (5.0-8.0); PH,URINE DRUG SCREEN 6.5 (5.0-8.0); PROTEIN,URINE NEGATIVE (NEGATIVE); SPECIFIC GRAVITIY, URINE 1.012 (1.003-1.030); UROBILINOGEN,URINE <=1.0 mg/dL (<=1.0)
[2023-05-05 10:03] LABS: AMPHET/METH SCREEN,URINE NEGATIVE (NEGATIVE); BARBITURATE SCREEN, URINE NEGATIVE (NEGATIVE); BENZODIAZEPINES SCREEN,URINE NEGATIVE (NEGATIVE); CANNABINOID SCREEN,URINE NEGATIVE (NEGATIVE); COCAINE SCREEN,URINE NEGATIVE (NEGATIVE); METHADONE SCREEN, URINE NEGATIVE (NEGATIVE); OPIATE SCREEN,URINE NEGATIVE (NEGATIVE); PHENCYCLIDINE SCREEN,URINE NEGATIVE (NEGATIVE)
[2023-05-05 10:04] LABS: ALCOHOL, URINE DRUG SCREEN NEGATIVE (NEGATIVE)
[2023-05-05 20:38] VITALS: BP 128/75; PULSE 70; RESP 19; TEMP 98.1; O2SAT 97
[2023-05-05] MEDS: QUEtiapine FUMARATE 100 MG TABLET PO SCH (21:38)
[2023-05-05] MEDS: DiphenhydrAMINE HCL 25 MG CAPSULE PO PRN (21:38)
[2023-05-06] MEDS: LEVOTHYROXINE SODIUM 25 MCG TABLET PO SCH (06:23)
[2023-05-06] MEDS: CEPHALEXIN MONOHYDRATE 500 MG CAPSULE PO SCH ×3 (06:27→21:54)
[2023-05-06 08:23] VITALS: BP 117/70; PULSE 75; RESP 18; TEMP 97; O2SAT 95
[2023-05-06] MEDS: SERTRALINE HCL 50 MG TABLET PO SCH (08:42)
[2023-05-06] MEDS: QUEtiapine FUMARATE 100 MG TABLET PO SCH (20:32)
[2023-05-06 20:40] VITALS: BP 125/65; PULSE 86; RESP 17; TEMP 98; O2SAT 96
[2023-05-06] MEDS: DiphenhydrAMINE HCL 25 MG CAPSULE PO PRN (21:56)
[2023-05-07] MEDS: LEVOTHYROXINE SODIUM 25 MCG TABLET PO SCH (05:58)
[2023-05-07] MEDS: CEPHALEXIN MONOHYDRATE 500 MG CAPSULE PO SCH ×3 (05:58→21:57)
[2023-05-07 08:21] VITALS: BP 111/71; PULSE 73; RESP 18; TEMP 97.6; O2SAT 95
[2023-05-07] MEDS: SERTRALINE HCL 50 MG TABLET PO SCH (09:43)
[2023-05-07 20:03] VITALS: BP 129/91; PULSE 75; RESP 18; TEMP 97.6; O2SAT 96
[2023-05-07] MEDS: ZOLPIDEM TARTRATE 10 MG TABLET PO PRN (21:57)
[2023-05-07] MEDS: QUEtiapine FUMARATE 100 MG TABLET PO SCH (21:57)
[2023-05-07] MEDS: DiphenhydrAMINE HCL 25 MG CAPSULE PO PRN (21:57)
[2023-05-08] MEDS: CEPHALEXIN MONOHYDRATE 500 MG CAPSULE PO SCH ×3 (06:00→13:59)
[2023-05-08] MEDS: LEVOTHYROXINE SODIUM 25 MCG TABLET PO SCH (06:15)
[2023-05-08 08:47] VITALS: BP 113/75; PULSE 72; RESP 17; TEMP 97.3; O2SAT 96
[2023-05-08] MEDS: SERTRALINE HCL 50 MG TABLET PO SCH (09:05)
[2023-05-08] MEDS: PEG 400/HYPROMELLOSE/GLYCERIN 15 ML OPHTHALMIC SOLUTION OU PRN (17:13)
[2023-05-08 20:16] VITALS: BP 117/78; PULSE 67; RESP 18; TEMP 98.6; O2SAT 95
[2023-05-08] MEDS: QUEtiapine FUMARATE 100 MG TABLET PO SCH (21:07)
[2023-05-08] MEDS: DiphenhydrAMINE HCL 25 MG CAPSULE PO PRN (21:08)
[2023-05-08] MEDS: ZOLPIDEM TARTRATE 10 MG TABLET PO PRN (21:08)
[2023-05-09] MEDS: LEVOTHYROXINE SODIUM 25 MCG TABLET PO SCH (06:30)
[2023-05-09 08:31] VITALS: BP 114/67; PULSE 67; RESP 19; TEMP 97.6; O2SAT 97
[2023-05-09] MEDS: SERTRALINE HCL 100 MG TABLET PO SCH (09:17)
[2023-05-09] MEDS: MULTIVITAMINS WITH MINERALS, THERAPEUTIC TABLET PO SCH (09:17)
[2023-05-09 19:45] VITALS: RESP 18
[2023-05-09] MEDS: IBUPROFEN 400 MG TABLET PO PRN (19:45)
[2023-05-09 20:08] VITALS: BP 127/74; PULSE 76; RESP 18; TEMP 97.6; O2SAT 98
[2023-05-09 20:45] VITALS: RESP 17
[2023-05-09] MEDS: DiphenhydrAMINE HCL 25 MG CAPSULE PO PRN (20:46)
[2023-05-09] MEDS: QUEtiapine FUMARATE 100 MG TABLET PO SCH (20:46)
[2023-05-09] MEDS: ZOLPIDEM TARTRATE 10 MG TABLET PO PRN (21:35)
[2023-05-10] MEDS: LEVOTHYROXINE SODIUM 25 MCG TABLET PO SCH (06:24)
[2023-05-10 08:35] VITALS: BP 115/74; PULSE 67; RESP 19; TEMP 97.8; O2SAT 96
[2023-05-10] MEDS: MULTIVITAMINS WITH MINERALS, THERAPEUTIC TABLET PO SCH (08:44)
[2023-05-10] MEDS: SERTRALINE HCL 100 MG TABLET PO SCH (08:44)
[2023-05-10 20:45] VITALS: BP 115/79; PULSE 73; RESP 17; TEMP 98; O2SAT 97
[2023-05-10] MEDS: PEG 400/HYPROMELLOSE/GLYCERIN 15 ML OPHTHALMIC SOLUTION OU PRN (20:51)
[2023-05-10] MEDS: DiphenhydrAMINE HCL 25 MG CAPSULE PO PRN (22:02)
[2023-05-10] MEDS: QUEtiapine FUMARATE 100 MG TABLET PO SCH (22:02)
[2023-05-11] MEDS: LEVOTHYROXINE SODIUM 25 MCG TABLET PO SCH (06:24)
[2023-05-11] MEDS: SERTRALINE HCL 100 MG TABLET PO SCH (10:02)
[2023-05-11] MEDS: MULTIVITAMINS WITH MINERALS, THERAPEUTIC TABLET PO SCH (10:02)
[2023-05-11 10:06] VITALS: BP 119/66; PULSE 77; RESP 17; TEMP 97.8; O2SAT 97
[2023-05-11] MEDS: PEG 400/HYPROMELLOSE/GLYCERIN 15 ML OPHTHALMIC SOLUTION OU PRN (11:09)
[2023-05-11 20:17] VITALS: BP 118/33; PULSE 64; RESP 18; TEMP 98.2; O2SAT 98
[2023-05-11] MEDS: ZOLPIDEM TARTRATE 10 MG TABLET PO PRN (21:33)
[2023-05-11] MEDS: QUEtiapine FUMARATE 100 MG TABLET PO SCH (21:33)
[2023-05-11] MEDS: DiphenhydrAMINE HCL 25 MG CAPSULE PO PRN (21:33)
[2023-05-12] MEDS: LEVOTHYROXINE SODIUM 25 MCG TABLET PO SCH (06:13)
[2023-05-12 08:14] VITALS: BP 111/60; PULSE 73; RESP 18; TEMP 97.7; O2SAT 98
[2023-05-12] MEDS: MULTIVITAMINS WITH MINERALS, THERAPEUTIC TABLET PO SCH (09:07)
[2023-05-12] MEDS: SERTRALINE HCL 100 MG TABLET PO SCH (09:07)
[2023-05-12] MEDS: QUEtiapine FUMARATE 100 MG TABLET PO SCH (21:34)
[2023-05-12] MEDS: DiphenhydrAMINE HCL 25 MG CAPSULE PO PRN (21:35)
[2023-05-12 23:52] VITALS: BP 120/60; PULSE 64; RESP 18; TEMP 97.9; O2SAT 96
[2023-05-13] MEDS: LEVOTHYROXINE SODIUM 25 MCG TABLET PO SCH (06:14)
[2023-05-13 08:13] VITALS: BP 107/73; PULSE 70; RESP 18; TEMP 98; O2SAT 98
[2023-05-13] MEDS: SERTRALINE HCL 100 MG TABLET PO SCH (08:45)
[2023-05-13] MEDS: MULTIVITAMINS WITH MINERALS, THERAPEUTIC TABLET PO SCH (08:45)
[2023-05-13 20:24] VITALS: BP 117/73; PULSE 64; RESP 18; TEMP 97.7; O2SAT 99
[2023-05-13] MEDS: QUEtiapine FUMARATE 100 MG TABLET PO SCH (21:31)
[2023-05-13] MEDS: DiphenhydrAMINE HCL 25 MG CAPSULE PO PRN (21:31)
[2023-05-14] MEDS: LEVOTHYROXINE SODIUM 25 MCG TABLET PO SCH ×2 (06:18→06:30)
[2023-05-14 08:15] VITALS: BP 113/68; PULSE 68; RESP 16; TEMP 97.3; O2SAT 96
[2023-05-14] MEDS: SERTRALINE HCL 100 MG TABLET PO SCH (08:36)
[2023-05-14] MEDS: MULTIVITAMINS WITH MINERALS, THERAPEUTIC TABLET PO SCH (08:36)
[2023-05-14 20:10] VITALS: BP 117/77; PULSE 63; RESP 17; TEMP 97.6; O2SAT 77
[2023-05-14] MEDS: QUEtiapine FUMARATE 100 MG TABLET PO SCH (21:40)
[2023-05-14] MEDS: PEG 400/HYPROMELLOSE/GLYCERIN 15 ML OPHTHALMIC SOLUTION OU PRN (21:40)
[2023-05-14] MEDS: ZOLPIDEM TARTRATE 10 MG TABLET PO PRN (21:40)
[2023-05-15] MEDS: LEVOTHYROXINE SODIUM 25 MCG TABLET PO SCH (06:29)
[2023-05-15] MEDS: MULTIVITAMINS WITH MINERALS, THERAPEUTIC TABLET PO SCH (08:45)
[2023-05-15] MEDS: SERTRALINE HCL 100 MG TABLET PO SCH (08:45)
[2023-05-15 08:53] VITALS: BP 120/73; PULSE 73; RESP 17; TEMP 97.5; O2SAT 96
[2023-05-15] MEDS: PEG 400/HYPROMELLOSE/GLYCERIN 15 ML OPHTHALMIC SOLUTION OU PRN (09:28)
[2023-05-15 20:03] VITALS: BP 119/75; PULSE 87; RESP 18; TEMP 97.7; O2SAT 97
[2023-05-15] MEDS: DiphenhydrAMINE HCL 25 MG CAPSULE PO PRN (21:10)
[2023-05-15] MEDS: QUEtiapine FUMARATE 100 MG TABLET PO SCH (21:10)
[2023-05-16] MEDS: LEVOTHYROXINE SODIUM 25 MCG TABLET PO SCH (06:30)
[2023-05-16 08:15] VITALS: BP 119/71; PULSE 69; RESP 17; TEMP 98; O2SAT 95
[2023-05-16] MEDS: SERTRALINE HCL 100 MG TABLET PO SCH (09:07)
[2023-05-16] MEDS: MULTIVITAMINS WITH MINERALS, THERAPEUTIC TABLET PO SCH (09:07)
[2023-05-16] MEDS: PEG 400/HYPROMELLOSE/GLYCERIN 15 ML OPHTHALMIC SOLUTION OU PRN (14:15)
[2023-05-16] MEDS: QUEtiapine FUMARATE 100 MG TABLET PO SCH (21:00)
[2023-05-16] MEDS: DiphenhydrAMINE HCL 25 MG CAPSULE PO PRN (21:00)
[2023-05-17 01:14] VITALS: RESP 18; TEMP 98
[2023-05-17] MEDS: LEVOTHYROXINE SODIUM 25 MCG TABLET PO SCH (05:57)
[2023-05-17 08:25] VITALS: BP 102/66; PULSE 70; RESP 18; TEMP 97.4; O2SAT 96
[2023-05-17] MEDS: SERTRALINE HCL 100 MG TABLET PO SCH (08:26)
[2023-05-17] MEDS: MULTIVITAMINS WITH MINERALS, THERAPEUTIC TABLET PO SCH (08:26)
[2023-05-17 20:35] VITALS: RESP 18; TEMP 98.2
[2023-05-17] MEDS: QUEtiapine FUMARATE 100 MG TABLET PO SCH (21:10)
[2023-05-17] MEDS: DiphenhydrAMINE HCL 25 MG CAPSULE PO PRN (21:57)
[2023-05-17] MEDS: PETROLATUM,WHITE 28 GM JELLY TP PRN (21:57)
[2023-05-17] MEDS: PEG 400/HYPROMELLOSE/GLYCERIN 15 ML OPHTHALMIC SOLUTION OU PRN (21:58)
[2023-05-18] MEDS: LEVOTHYROXINE SODIUM 25 MCG TABLET PO SCH (06:30)
[2023-05-18] MEDS: SERTRALINE HCL 100 MG TABLET PO SCH (08:29)
[2023-05-18] MEDS: MULTIVITAMINS WITH MINERALS, THERAPEUTIC TABLET PO SCH (08:29)
[2023-05-18 09:08] VITALS: BP 114/70; PULSE 72; RESP 17; TEMP 97.6; O2SAT 96
[2023-05-18 21:03] VITALS: BP 124/77; PULSE 66; RESP 18; TEMP 97.8; O2SAT 96
[2023-05-18] MEDS: DiphenhydrAMINE HCL 25 MG CAPSULE PO PRN (21:47)
[2023-05-18] MEDS: QUEtiapine FUMARATE 100 MG TABLET PO SCH (21:47)
[2023-05-18] MEDS: PEG 400/HYPROMELLOSE/GLYCERIN 15 ML OPHTHALMIC SOLUTION OU PRN (21:48)
[2023-05-19] MEDS: LEVOTHYROXINE SODIUM 25 MCG TABLET PO SCH (06:26)
[2023-05-19] MEDS: SERTRALINE HCL 100 MG TABLET PO SCH (08:34)
[2023-05-19] MEDS: MULTIVITAMINS WITH MINERALS, THERAPEUTIC TABLET PO SCH (08:34)
[2023-05-19 09:15] VITALS: BP 120/76; PULSE 73; RESP 18; TEMP 97.3; O2SAT 97
[2023-05-19 20:55] VITALS: BP 113/63; PULSE 60; RESP 18; TEMP 97.4; O2SAT 98
[2023-05-19] MEDS: QUEtiapine FUMARATE 100 MG TABLET PO SCH (21:56)
[2023-05-20] MEDS: LEVOTHYROXINE SODIUM 25 MCG TABLET PO SCH (06:30)
[2023-05-20] MEDS: SERTRALINE HCL 100 MG TABLET PO SCH (08:48)
[2023-05-20] MEDS: MULTIVITAMINS WITH MINERALS, THERAPEUTIC TABLET PO SCH (08:48)
[2023-05-20 09:03] VITALS: BP 126/68; PULSE 70; RESP 18; TEMP 97.2; O2SAT 98
[2023-05-20] MEDS: QUEtiapine FUMARATE 100 MG TABLET PO SCH (21:30)
[2023-05-20 22:07] VITALS: BP 134/78; PULSE 63; RESP 18; TEMP 97.6; O2SAT 97
[2023-05-21] MEDS: LEVOTHYROXINE SODIUM 25 MCG TABLET PO SCH (06:30)
[2023-05-21] MEDS: MULTIVITAMINS WITH MINERALS, THERAPEUTIC TABLET PO SCH (08:20)
[2023-05-21] MEDS: SERTRALINE HCL 100 MG TABLET PO SCH (08:20)
[2023-05-21 08:26] VITALS: BP 110/67; PULSE 69; RESP 17; TEMP 97.2; O2SAT 96
[2023-05-21 20:22] VITALS: BP 112/69; PULSE 78; RESP 18; TEMP 97.6; O2SAT 98
[2023-05-21] MEDS: GABAPENTIN 300 MG CAPSULE PO SCH (21:02)
[2023-05-21] MEDS: QUEtiapine FUMARATE 100 MG TABLET PO SCH (21:51)
[2023-05-21] MEDS: PEG 400/HYPROMELLOSE/GLYCERIN 15 ML OPHTHALMIC SOLUTION OU PRN (21:53)
[2023-05-22] MEDS: LEVOTHYROXINE SODIUM 25 MCG TABLET PO SCH (06:04)
[2023-05-22] MEDS: MULTIVITAMINS WITH MINERALS, THERAPEUTIC TABLET PO SCH (08:19)
[2023-05-22] MEDS: SERTRALINE HCL 100 MG TABLET PO SCH (08:19)
[2023-05-22 08:54] VITALS: BP 117/65; PULSE 70; RESP 17; TEMP 97.6; O2SAT 97
[2023-05-22 20:25] VITALS: BP 126/80; PULSE 81; RESP 19; TEMP 97.2; O2SAT 99
[2023-05-22] MEDS: GABAPENTIN 300 MG CAPSULE PO SCH (21:55)
[2023-05-22] MEDS: QUEtiapine FUMARATE 100 MG TABLET PO SCH (21:59)
[2023-05-23] MEDS: LEVOTHYROXINE SODIUM 25 MCG TABLET PO SCH (06:30)
[2023-05-23 08:34] VITALS: BP 114/64; PULSE 71; RESP 18; TEMP 97.7; O2SAT 98
[2023-05-23] MEDS: MULTIVITAMINS WITH MINERALS, THERAPEUTIC TABLET PO SCH (09:49)
[2023-05-23] MEDS: SERTRALINE HCL 100 MG TABLET PO SCH (09:49)
[2023-05-23] MEDS: PEG 400/HYPROMELLOSE/GLYCERIN 15 ML OPHTHALMIC SOLUTION OU PRN ×2 (11:25→22:02)
[2023-05-23 20:26] VITALS: BP 120/67; PULSE 67; RESP 18; TEMP 97.5; O2SAT 97
[2023-05-23] MEDS: QUEtiapine FUMARATE 100 MG TABLET PO SCH (21:54)
[2023-05-23] MEDS: GABAPENTIN 300 MG CAPSULE PO SCH (21:54)
[2023-05-23] MEDS: PETROLATUM,WHITE 28 GM JELLY TP PRN (22:01)
[2023-05-24] MEDS: LEVOTHYROXINE SODIUM 25 MCG TABLET PO SCH (06:25)
[2023-05-24 09:04] VITALS: BP 110/69; PULSE 64; RESP 16; TEMP 97.4; O2SAT 96
[2023-05-24] MEDS: MULTIVITAMINS WITH MINERALS, THERAPEUTIC TABLET PO SCH (09:35)
[2023-05-24] MEDS: SERTRALINE HCL 100 MG TABLET PO SCH (09:35)
[2023-05-24] MEDS: IBUPROFEN 400 MG TABLET PO PRN (18:32)
[2023-05-24 20:54] VITALS: BP 124/83; PULSE 72; RESP 18; TEMP 96.6
[2023-05-24] MEDS: GABAPENTIN 300 MG CAPSULE PO SCH (20:59)
[2023-05-24] MEDS: QUEtiapine FUMARATE 100 MG TABLET PO SCH (20:59)
[2023-05-24] MEDS: PEG 400/HYPROMELLOSE/GLYCERIN 15 ML OPHTHALMIC SOLUTION OU PRN (21:53)
[2023-05-25] MEDS: LEVOTHYROXINE SODIUM 25 MCG TABLET PO SCH (06:30)
[2023-05-25 08:05] LABS: APPEARANCE,URINE CLEAR (CLEAR); BILIRUBIN,URINE NEGATIVE (NEGATIVE); COLOR,URINE LIGHT YELLOW (YELLOW); GLUCOSE, URINE (UA) NEGATIVE (NEGATIVE); KETONES,URINE NEGATIVE (NEGATIVE); LEUKOCYTE ESTERASE ,URINE NEGATIVE (NEGATIVE); NITRATE,URINE NEGATIVE (NEGATIVE); OCCULT BLOOD,URINE NEGATIVE (NEGATIVE); PH,URINE 5.5 (5.0-8.0); PROTEIN,URINE NEGATIVE (NEGATIVE); SPECIFIC GRAVITIY, URINE 1.009 (1.003-1.030); UROBILINOGEN,URINE <=1.0 mg/dL (<=1.0)
[2023-05-25] MEDS: MULTIVITAMINS WITH MINERALS, THERAPEUTIC TABLET PO SCH (08:09)
[2023-05-25] MEDS: SERTRALINE HCL 100 MG TABLET PO SCH (08:10)
[2023-05-25 08:40] VITALS: BP 123/71; PULSE 83; RESP 18; TEMP 98; O2SAT 98
[2023-05-25] MEDS: QUEtiapine FUMARATE 100 MG TABLET PO SCH (20:18)
[2023-05-25] MEDS: GABAPENTIN 300 MG CAPSULE PO SCH (20:18)
[2023-05-25 20:20] VITALS: BP 136/82; PULSE 64; RESP 18; TEMP 98.3; O2SAT 97
[2023-05-26] MEDS: LEVOTHYROXINE SODIUM 25 MCG TABLET PO SCH (06:30)
[2023-05-26 08:18] VITALS: BP 106/67; PULSE 71; RESP 18; TEMP 96.8; O2SAT 96
[2023-05-26] MEDS: MULTIVITAMINS WITH MINERALS, THERAPEUTIC TABLET PO SCH (08:30)
[2023-05-26] MEDS: SERTRALINE HCL 100 MG TABLET PO SCH (08:30)
[2023-05-26 19:32] VITALS: RESP 17
[2023-05-26] MEDS: IBUPROFEN 400 MG TABLET PO PRN (19:32)
[2023-05-26 20:15] VITALS: BP 122/80; PULSE 66; RESP 17; TEMP 97.6; O2SAT 97
[2023-05-26 20:32] VITALS: RESP 16
[2023-05-26] MEDS: QUEtiapine FUMARATE 100 MG TABLET PO SCH (21:42)
[2023-05-26] MEDS: GABAPENTIN 300 MG CAPSULE PO SCH (21:43)
[2023-05-27] MEDS: LEVOTHYROXINE SODIUM 25 MCG TABLET PO SCH (06:30)
[2023-05-27] MEDS: MULTIVITAMINS WITH MINERALS, THERAPEUTIC TABLET PO SCH (08:15)
[2023-05-27] MEDS: SERTRALINE HCL 100 MG TABLET PO SCH (08:16)
[2023-05-27 09:49] VITALS: BP 112/74; PULSE 66; RESP 17; TEMP 97.4; O2SAT 98
[2023-05-27 20:52] VITALS: BP 132/81; PULSE 68; RESP 18; TEMP 97.8; O2SAT 98
[2023-05-27] MEDS: GABAPENTIN 300 MG CAPSULE PO SCH (21:39)
[2023-05-27] MEDS: QUEtiapine FUMARATE 100 MG TABLET PO SCH (21:39)
[2023-05-28] MEDS: LEVOTHYROXINE SODIUM 25 MCG TABLET PO SCH (06:30)
[2023-05-28 08:39] VITALS: BP 108/68; PULSE 71; RESP 17; TEMP 96.8; O2SAT 98
[2023-05-28] MEDS: MULTIVITAMINS WITH MINERALS, THERAPEUTIC TABLET PO SCH (09:07)
[2023-05-28] MEDS: SERTRALINE HCL 100 MG TABLET PO SCH (09:08)
[2023-05-28] MEDS ORDERED: QUEtiapine FUMARATE 200 MG TABLET PO SCH (21:00)
[2023-05-28] MEDS: GABAPENTIN 300 MG CAPSULE PO SCH (21:56)
[2023-05-28 22:24] VITALS: BP 118/63; PULSE 72; RESP 17; TEMP 97.8; O2SAT 98
[2023-05-29] MEDS: LEVOTHYROXINE SODIUM 25 MCG TABLET PO SCH (06:24)
[2023-05-29 08:03] VITALS: BP 107/78; PULSE 72; RESP 17; TEMP 98.3; O2SAT 97
[2023-05-29] MEDS: MULTIVITAMINS WITH MINERALS, THERAPEUTIC TABLET PO SCH (08:19)
[2023-05-29] MEDS: SERTRALINE HCL 100 MG TABLET PO SCH (08:21)
[2023-05-29] MEDS: PEG 400/HYPROMELLOSE/GLYCERIN 15 ML OPHTHALMIC SOLUTION OU PRN ×2 (15:16→21:57)
[2023-05-29 20:41] VITALS: BP 132/78; PULSE 73; RESP 17; TEMP 97.7; O2SAT 97
[2023-05-29] MEDS: GABAPENTIN 300 MG CAPSULE PO SCH (21:54)
[2023-05-29] MEDS: TraZODone HCL 100 MG TABLET PO SCH (21:55)
[2023-05-29] MEDS: PETROLATUM,WHITE 28 GM JELLY TP PRN (21:57)
[2023-05-30] MEDS: LEVOTHYROXINE SODIUM 25 MCG TABLET PO SCH (06:30)
[2023-05-30] MEDS: SERTRALINE HCL 100 MG TABLET PO SCH (07:59)
[2023-05-30] MEDS: MULTIVITAMINS WITH MINERALS, THERAPEUTIC TABLET PO SCH (07:59)
[2023-05-30 08:28] VITALS: BP 109/70; PULSE 64; RESP 17; TEMP 96.4; O2SAT 97
[2023-05-30 20:12] VITALS: BP 115/76; PULSE 74; RESP 18; TEMP 97.6
[2023-05-30] MEDS: TraZODone HCL 100 MG TABLET PO SCH (21:51)
[2023-05-30] MEDS: GABAPENTIN 300 MG CAPSULE PO SCH (21:51)
[2023-05-30] MEDS: DiphenhydrAMINE HCL 25 MG CAPSULE PO PRN (21:52)
[2023-05-31] MEDS: LEVOTHYROXINE SODIUM 25 MCG TABLET PO SCH (06:08)
[2023-05-31 08:51] VITALS: BP 123/63; PULSE 61; RESP 17; TEMP 97.6; O2SAT 97
[2023-05-31] MEDS ORDERED: LEVO25TA9 PO (08:57)
[2023-05-31] MEDS ORDERED: TRAZ-257 PO (08:57)
[2023-05-31] MEDS ORDERED: GABA-1181 PO (08:57)
[2023-05-31] MEDS ORDERED: SERT-440 PO (08:57)
[2023-05-31] MEDS: SERTRALINE HCL 100 MG TABLET PO SCH (09:10)
[2023-05-31] MEDS: MULTIVITAMINS WITH MINERALS, THERAPEUTIC TABLET PO SCH (09:11)
== END 2023-05-31 12:05 | disposition home or self-care (01) | DRG 753 ==
LOC: EMS 13:18 → B2S 21:48
PROVIDERS: ADMIT Psychiatry & Neurology Psychiatry; ATTEND Psychiatry & Neurology Psychiatry
DX: F31.4 Bipolar disorder, current episode depressed, severe, without psychotic features (principal); D69.6 Thrombocytopenia, unspecified; C43.9 Malignant melanoma of skin, unspecified; R45.851 Suicidal ideations; E87.6 Hypokalemia; I10 Essential (primary) hypertension; E03.9 Hypothyroidism, unspecified; K21.9 Gastro-esophageal reflux disease without esophagitis; Z20.822 Contact with and (suspected) exposure to COVID-19; F41.9 Anxiety disorder, unspecified; D32.9 Benign neoplasm of meninges, unspecified; Z79.899 Other long term (current) drug therapy; Z88.6 Allergy status to analgesic agent; Z59.00 Homelessness unspecified; Z91.51 Personal history of suicidal behavior; Z88.8 Allergy status to other drugs, medicaments and biological substances
CPT/HCPCS: 80053; 80061; 80307; 81003; 82271; 83036; 84132; 84443; 85025; 86592; 87081; 90686; 90732; 99285; G0480; Q9967

== ENCOUNTER 2024-01-05 12:51 | Inpatient (IN) | payer MEDICARE, MEDICAID ==
[~2024-01-05] VITALS: Ht 180.3 cm; Wt 90.9 kg
[~2024-01-05 12:51] MED LIST changes: -ACYC-138 PO; -AMLO5TAB66 PO; -ARIP5TAB37 PO; +DIPH50 PO; -PANT-31 PO; +SERT-440 PO; -VENL-67 PO
[2024-01-05 15:27] LABS: HEMOGLOBIN 14.5 g/dL (13.5-17.5); LYMPHOCYTES # (AUTO) 1.8 K/uL (1.0-4.8); LYMPHOCYTES % (AUTO) 16.1 % (22.0-44.0)
[2024-01-05 15:30] LABS: BASOPHILS % (AUTO) 0.7 % (0.0-2.0); EOSINOPHILS % (AUTO) 1.3 % (1.0-6.0); HEMATOCRIT 43.8 % (41-53); MEAN CORPUSCULAR HEMOGLOBIN 30.9 pg (26.0-34.0); MEAN CORPUSCULAR HGB CONC 33.1 G/dL (31.0-37.0); MEAN CORPUSCULAR VOLUME 94 fL (80-100); MONOCYTES # (AUTO) 0.9 K/uL (0.1-1.0); MONOCYTES % (AUTO) 8.3 % (2.0-9.0); NEUTROPHILS # (AUTO) 8.4 K/uL (1.8-7.7); NEUTROPHILS % (AUTO) 73.6 % (40.0-70.0); PLATELET COUNT (AUTO) 181 K/uL (150-450); RED BLOOD CELL COUNT(AUTO) 4.68 MIL/uL (4.50-5.90); WHITE BLOOD COUNT (AUTO) 11.3 K/uL (4.5-11.0)
[2024-01-05 15:35] LABS: ANION GAP 8 mmol/L (8-16); CALCIUM, TOTAL 9.2 mg/dL (8.8-10.5); CARBON DIOXIDE 26 mmol/L (22-29); CHLORIDE 103 mmol/L (98-107); CREATININE 1.05 mg/dL (0.60-1.30); GLOMERULAR FILTR. RATE CALC > 60 mL/min (>60); GLUCOSE,RANDOM 90 mg/dL (70-110); POTASSIUM 4.1 mmol/L (3.5-5.1); SODIUM SERUM 137 mmol/L (136-145); UREA NITROGEN, BLOOD 11 mg/dL (7-18)
[2024-01-05 15:38] LABS: APPEARANCE,URINE CLEAR (CLEAR); BILIRUBIN,URINE NEGATIVE (NEGATIVE); COLOR,URINE COLORLESS (YELLOW); GLUCOSE, URINE (UA) NEGATIVE (NEGATIVE); KETONES,URINE NEGATIVE (NEGATIVE); LEUKOCYTE ESTERASE ,URINE NEGATIVE (NEGATIVE); NITRATE,URINE NEGATIVE (NEGATIVE); OCCULT BLOOD,URINE NEGATIVE (NEGATIVE); PROTEIN,URINE NEGATIVE (NEGATIVE); SPECIFIC GRAVITIY, URINE 1.009 (1.003-1.030); UROBILINOGEN,URINE <=1.0 mg/dL (<=1.0)
[2024-01-05 15:44] LABS: ALCOHOL, URINE DRUG SCREEN NEGATIVE (NEGATIVE); AMPHET/METH SCREEN,URINE NEGATIVE (NEGATIVE); BARBITURATE SCREEN, URINE NEGATIVE (NEGATIVE); BENZODIAZEPINES SCREEN,URINE NEGATIVE (NEGATIVE); CANNABINOID SCREEN,URINE NEGATIVE (NEGATIVE); COCAINE SCREEN,URINE NEGATIVE (NEGATIVE); METHADONE SCREEN, URINE NEGATIVE (NEGATIVE); OPIATE SCREEN,URINE NEGATIVE (NEGATIVE); PHENCYCLIDINE SCREEN,URINE NEGATIVE (NEGATIVE)
[2024-01-05 15:46] LABS: ALCOHOL, BLOOD (SERUM) < 3 mg/dL (0-10)
[2024-01-05 17:41] LABS: COVID AG,FIA SOURCE NASAL SWAB
[2024-01-05 18:11] LABS: SARS-COV2 (COVID) ANTIGEN,FIA Negative (Negative)
[2024-01-05] MEDS ORDERED: OLANZapine 5 MG RAPDIS TABLET PO PRN (20:00)
[2024-01-05] MEDS ORDERED: VALA100026 PO (20:01)
[2024-01-06] MEDS: ZOLPIDEM TARTRATE 10 MG TABLET PO PRN (02:11)
[2024-01-06 02:12] VITALS: BP 110/78; PULSE 69; RESP 18; TEMP 97.6; O2SAT 97
[2024-01-06] MEDS ORDERED: PETROLATUM,WHITE 28 GM JELLY TP PRN (07:30)
[2024-01-06] MEDS ORDERED: MAGNESIUM HYDROXIDE SUSPENSION 30 ML UDCUP PO PRN (07:30)
[2024-01-06] MEDS ORDERED: CloNIDine HCL 0.1 MG TABLET PO PRN (07:30)
[2024-01-06] MEDS ORDERED: DOCUSATE SODIUM 100 MG CAPSULE PO PRN (07:30)
[2024-01-06] MEDS ORDERED: ONDANSETRON HCL 4 MG TABLET PO PRN (07:30)
[2024-01-06] MEDS ORDERED: GuaiFENesin/D-METHORPHAN [SUGAR-FREE] 200-20MG/10 ML SYRUP UDCUP PO PRN (07:30)
[2024-01-06] MEDS ORDERED: NICOTINE 14 MG/24 HOUR PATCH TD PRN (07:30)
[2024-01-06] MEDS ORDERED: ALBUTEROL SULFATE HFA 90 MCG/PUFF 8 GM INHALER IH PRN (07:30)
[2024-01-06 08:33] VITALS: RESP 18
[2024-01-06] MEDS: SERTRALINE HCL 100 MG TABLET PO SCH (11:13)
[2024-01-06 20:29] VITALS: BP 141/70; PULSE 65; RESP 18; TEMP 98.4; O2SAT 97
[2024-01-06] MEDS: GABAPENTIN 300 MG CAPSULE PO SCH (20:54)
[2024-01-06] MEDS: QUEtiapine FUMARATE 100 MG TABLET PO SCH (20:54)
[2024-01-07] MEDS: LEVOTHYROXINE SODIUM 25 MCG TABLET PO SCH (06:30)
[2024-01-07 08:57] VITALS: BP 111/68; PULSE 79; RESP 18; TEMP 97.7; O2SAT 95
[2024-01-07 13:39] VITALS: RESP 17
[2024-01-07] MEDS: IBUPROFEN 400 MG TABLET PO PRN (13:39)
[2024-01-07 14:39] VITALS: RESP 16
[2024-01-07] MEDS: ValACYclovir HCL 500 MG TABLET PO SCH (16:52)
[2024-01-07 20:14] VITALS: BP 140/72; PULSE 81; RESP 18; TEMP 97.8
[2024-01-08] MEDS: LORazepam 2 MG TABLET PO PRN (03:51)
[2024-01-08 08:33] LABS: HEMOGLOBIN A1C 5.4 % (3.8-5.6)
[2024-01-08 08:50] LABS: CHOL/HDL RATIO 4.1 (4.2-7.3); THYROID STIMULATING HORMONE 4.91 uIU/mL (0.36-3.74)
[2024-01-08 08:54] VITALS: BP 127/73; PULSE 84; RESP 17; TEMP 97.5; O2SAT 96
[2024-01-08] MEDS ORDERED: ValACYclovir HCL 500 MG TABLET PO ONE ×2 (09:15→12:00)
[2024-01-08] MEDS: ValACYclovir HCL 500 MG TABLET PO ONE (09:28)
[2024-01-08] MEDS: ValACYclovir HCL 500 MG TABLET PO SCH (18:37)
[2024-01-08 20:13] VITALS: BP 131/87; PULSE 74; RESP 19; TEMP 98.3; O2SAT 95
[2024-01-08] MEDS: TraZODone HCL 50 MG TABLET PO SCH (21:23)
[2024-01-09 09:41] VITALS: BP_SYST 118; BP_SYST 120; BP_DIAS 69; BP_DIAS 74; PULSE 95; RESP 18; TEMP 98.4; O2SAT 96
[2024-01-09 20:17] VITALS: BP 125/71; PULSE 70; RESP 16; TEMP 97.8; O2SAT 95
[2024-01-10 08:11] VITALS: BP 115/66; PULSE 72; RESP 16; TEMP 97.5; O2SAT 96
[2024-01-10 20:33] VITALS: BP 132/90; PULSE 72; RESP 16; TEMP 97.6; O2SAT 98
[2024-01-10 21:04] VITALS: BP 115/74; PULSE 72; RESP 16; TEMP 97.6; O2SAT 98
[2024-01-11 08:16] VITALS: BP 137/52; PULSE 79; RESP 18; TEMP 97.5; O2SAT 96
[2024-01-11 20:50] VITALS: BP 132/87; PULSE 79; RESP 16; TEMP 97.9; O2SAT 97
[2024-01-11] MEDS: MAG HYDROX/ALUMINUM HYD/SIMETH ES 30 ML SUSPENSION UDCUP PO PRN (21:25)
[2024-01-12 08:34] VITALS: BP 124/77; PULSE 90; RESP 18; TEMP 97.8; O2SAT 96
[2024-01-12 20:00] VITALS: BP 123/76; PULSE 78; RESP 18; TEMP 97.7; O2SAT 97
[2024-01-13 08:40] VITALS: BP 131/84; PULSE 103; RESP 18; TEMP 97.5; O2SAT 96
[2024-01-13] MEDS ORDERED: NALTREXONE HCL 50 MG TABLET PO SCH (10:15)
[2024-01-13] MEDS ORDERED: BuPROPion HCL 150 MG SR TABLET PO SCH (10:15)
[2024-01-13] MEDS: PEG 400/HYPROMELLOSE/GLYCERIN 15 ML OPHTHALMIC SOLUTION OU PRN (15:27)
[2024-01-13 20:06] VITALS: BP 117/75; PULSE 77; RESP 16; TEMP 98.1; O2SAT 97
[2024-01-13] MEDS ORDERED: OLANZapine 10 MG TABLET PO SCH (21:00)
[2024-01-14 08:06] VITALS: BP 134/92; PULSE 79; RESP 18; TEMP 97.4; O2SAT 96
[2024-01-14 20:15] VITALS: BP 138/79; PULSE 101; RESP 17; TEMP 97.8; O2SAT 97
[2024-01-15 08:10] VITALS: BP 134/81; PULSE 83; RESP 18; TEMP 97.7; O2SAT 96
[2024-01-15] MEDS: PERMETHRIN 5% 60 GM CREAM TP ONE (20:21)
[2024-01-15 20:54] VITALS: BP 118/72; PULSE 84; RESP 18; TEMP 97.6; O2SAT 95
[2024-01-16] MEDS: SERTRALINE HCL 50 MG TABLET PO SCH (09:49)
[2024-01-16 10:08] VITALS: BP 125/74; PULSE 81; RESP 17; TEMP 98.1; O2SAT 99
[2024-01-16 20:47] VITALS: BP 121/77; PULSE 89; RESP 16; TEMP 98; O2SAT 96
[2024-01-17 08:34] VITALS: BP 123/72; PULSE 64; RESP 18; TEMP 97.1; O2SAT 96
[2024-01-17 22:05] VITALS: BP 135/92; PULSE 65; RESP 18; TEMP 96.4; O2SAT 97
[2024-01-18 09:36] VITALS: BP 116/63; PULSE 74; RESP 17; TEMP 97.3; O2SAT 97
[2024-01-18 20:56] VITALS: BP 131/75; PULSE 80; RESP 19; TEMP 98; O2SAT 98
[2024-01-19 08:57] VITALS: BP 114/65; PULSE 74; RESP 18; TEMP 96.9; O2SAT 92
[2024-01-19 20:00] VITALS: BP 126/83; PULSE 79; RESP 17; TEMP 97.9; O2SAT 96
[2024-01-20 08:58] VITALS: BP 104/70; PULSE 69; RESP 17; TEMP 98.3; O2SAT 98
[2024-01-20 20:46] VITALS: BP 120/66; PULSE 64; RESP 18; TEMP 97.9; O2SAT 97
[2024-01-21 09:03] VITALS: BP 109/68; PULSE 68; RESP 19; TEMP 97.5; O2SAT 97
[2024-01-21 20:22] VITALS: BP 116/89; PULSE 71; RESP 18; TEMP 97.8; O2SAT 96
[2024-01-22 08:46] VITALS: BP 111/66; PULSE 68; RESP 18; TEMP 97.3; O2SAT 95
[2024-01-22 20:48] VITALS: BP 140/50; PULSE 71; RESP 19; TEMP 97.6; O2SAT 98
[2024-01-22] MEDS: DiphenhydrAMINE HCL 25 MG CAPSULE PO PRN (20:58)
[2024-01-22] MEDS: TraZODone HCL 100 MG TABLET PO SCH (21:26)
[2024-01-23 08:36] VITALS: BP 107/54; PULSE 65; RESP 18; TEMP 97.6; O2SAT 95
[2024-01-23 19:05] VITALS: RESP 18
[2024-01-23 20:05] VITALS: RESP 18
[2024-01-23 20:42] VITALS: BP 142/87; PULSE 84; RESP 20; TEMP 98.2; O2SAT 96
[2024-01-24 09:35] VITALS: BP 119/65; PULSE 70; RESP 18; TEMP 97.7; O2SAT 94
[2024-01-24 20:55] VITALS: BP 126/89; PULSE 78; RESP 18; TEMP 97.7; O2SAT 97
[2024-01-25 09:25] VITALS: BP 101/70; PULSE 67; RESP 18; TEMP 97.7; O2SAT 95
[2024-01-25 20:42] VITALS: BP 128/73; PULSE 77; RESP 18; TEMP 98.8; O2SAT 96
[2024-01-26 09:04] VITALS: BP 133/64; PULSE 67; RESP 16; TEMP 97.8; O2SAT 95
[2024-01-26 20:19] VITALS: BP 125/66; PULSE 72; RESP 18; TEMP 98
[2024-01-27 09:51] VITALS: BP 138/63; PULSE 70; RESP 18; TEMP 97.5; O2SAT 94
[2024-01-27 20:00] VITALS: BP 129/81; PULSE 89; RESP 20; TEMP 98; O2SAT 97
[2024-01-28 09:31] VITALS: BP 109/58; PULSE 72; RESP 18; TEMP 97.1; O2SAT 94
[2024-01-28 20:43] VITALS: BP 133/60; PULSE 74; RESP 18; TEMP 97.5; O2SAT 95
[2024-01-29 08:51] VITALS: BP 116/64; PULSE 72; RESP 15; TEMP 98.4; O2SAT 95
[2024-01-29 21:03] VITALS: BP 133/83; PULSE 80; RESP 18; TEMP 97.4; O2SAT 96
[2024-01-30 08:53] VITALS: BP 115/69; PULSE 70; RESP 18; TEMP 97.3; O2SAT 94
[2024-01-30] MEDS: SERTRALINE HCL 100 MG TABLET PO SCH (09:17)
[2024-01-30 20:57] VITALS: BP 129/77; PULSE 71; RESP 20; TEMP 97.6; O2SAT 97
[2024-01-31 08:42] VITALS: BP 119/67; PULSE 71; RESP 18; TEMP 97.2; O2SAT 95
[2024-01-31 20:26] VITALS: BP 135/71; PULSE 76; RESP 18; TEMP 97.6; O2SAT 95
[2024-02-01 09:19] VITALS: BP 113/65; PULSE 68; RESP 18; TEMP 96.9; O2SAT 97
[2024-02-01 19:02] VITALS: RESP 18
[2024-02-01 20:00] VITALS: BP 130/77; PULSE 67; RESP 16; TEMP 97.4; O2SAT 98
[2024-02-01 22:19] VITALS: BP 130/77; PULSE 67; RESP 18; TEMP 97.4; O2SAT 97
[2024-02-02 08:47] LABS: BASOPHILS % (AUTO) 0.8 % (0.0-2.0); EOSINOPHILS % (AUTO) 3.4 % (1.0-6.0); HEMATOCRIT 40.8 % (41-53); HEMOGLOBIN 13.9 g/dL (13.5-17.5); LYMPHOCYTES # (AUTO) 2.1 K/uL (1.0-4.8); LYMPHOCYTES % (AUTO) 27.7 % (22.0-44.0); MEAN CORPUSCULAR HEMOGLOBIN 31.7 pg (26.0-34.0); MEAN CORPUSCULAR HGB CONC 34.1 G/dL (31.0-37.0); MEAN CORPUSCULAR VOLUME 93 fL (80-100); MONOCYTES # (AUTO) 0.8 K/uL (0.1-1.0); NEUTROPHILS # (AUTO) 4.3 K/uL (1.8-7.7); NEUTROPHILS % (AUTO) 57.1 % (40.0-70.0); PLATELET COUNT (AUTO) 133 K/uL (150-450); RED BLOOD CELL COUNT(AUTO) 4.39 MIL/uL (4.50-5.90); RED CELL DISTRIBUTION WIDTH 14.2 % (11.5-14.5); WHITE BLOOD COUNT (AUTO) 7.5 K/uL (4.5-11.0)
[2024-02-02 09:27] VITALS: BP 115/68; PULSE 73; RESP 18; TEMP 97; O2SAT 98
[2024-02-02] MEDS: ETHYL ALCOHOL 62% ANTISEPTIC NASAL SANITIZER 0.6 ML AMPUL NASAL SCH (21:02)
[2024-02-02] MEDS: CHLORHEXIDINE GLUCONATE 2% TOWELETTE [2'S/6'S] TP SCH (21:17)
[2024-02-02 21:25] VITALS: BP 115/60; PULSE 67; RESP 18; TEMP 96.7; O2SAT 96
[2024-02-03 09:36] VITALS: BP 128/75; PULSE 78; RESP 18; TEMP 96.4; O2SAT 97
[2024-02-03 20:52] VITALS: BP 129/61; PULSE 68; RESP 17; TEMP 97.8; O2SAT 96
[2024-02-03] MEDS: LOPERAMIDE HCL 2 MG CAPSULE PO PRN (20:52)
[2024-02-04 10:21] VITALS: BP 125/77; PULSE 73; RESP 17; TEMP 97.7; O2SAT 95
[2024-02-04 21:19] VITALS: BP 110/73; PULSE 69; RESP 16; TEMP 98.2; O2SAT 97
[2024-02-05 09:21] VITALS: BP 119/68; PULSE 78; RESP 18; TEMP 96.6; O2SAT 96
[2024-02-05] MEDS: SERTRALINE HCL 50 MG TABLET PO SCH (13:05)
[2024-02-05 20:10] VITALS: BP 117/68; PULSE 65; RESP 18; TEMP 97.5; O2SAT 97
[2024-02-06 08:49] VITALS: BP 134/65; PULSE 73; RESP 18; TEMP 97.9; O2SAT 95
[2024-02-06] MEDS: SERTRALINE HCL 50 MG TABLET PO SCH (09:45)
[2024-02-06 20:00] VITALS: BP 124/69; PULSE 72; RESP 16; TEMP 97.3; O2SAT 95
[2024-02-07 08:20] VITALS: BP 113/68; PULSE 68; RESP 18; TEMP 97.8; O2SAT 98
[2024-02-07 20:47] VITALS: BP 118/82; PULSE 58; RESP 17; TEMP 97.2; O2SAT 99
[2024-02-08 08:58] VITALS: BP 116/70; PULSE 72; RESP 18; TEMP 96.8; O2SAT 97
[2024-02-08 20:40] VITALS: BP 142/75; PULSE 72; RESP 18; TEMP 98.7; O2SAT 96
[2024-02-09 08:47] VITALS: BP 104/67; PULSE 74; RESP 16; TEMP 97.3; O2SAT 97
[2024-02-09 20:50] VITALS: BP 113/72; PULSE 68; RESP 16; TEMP 97.7; O2SAT 97
[2024-02-10 08:19] VITALS: BP 109/70; PULSE 65; RESP 19; TEMP 97.6; O2SAT 100
[2024-02-10 20:00] VITALS: RESP 17; TEMP 97.8; O2SAT 99
[2024-02-11 09:25] VITALS: BP 124/73; PULSE 80; RESP 17; TEMP 97.9; O2SAT 100
[2024-02-11 21:47] VITALS: BP 123/77; PULSE 72; RESP 18; TEMP 97.3; O2SAT 96
[2024-02-12 08:49] VITALS: BP 115/61; PULSE 75; RESP 17; TEMP 98; O2SAT 98
[2024-02-12 20:52] VITALS: BP 115/73; PULSE 70; RESP 20; TEMP 97.7; O2SAT 96
[2024-02-13 08:46] VITALS: BP 120/72; PULSE 75; RESP 17; TEMP 97.9; O2SAT 99
[2024-02-13 20:36] VITALS: BP 116/76; PULSE 67; RESP 16; TEMP 98.6; O2SAT 98
[2024-02-14 08:22] VITALS: BP 117/68; PULSE 100; RESP 16; TEMP 97.8; O2SAT 97
[2024-02-14 20:47] VITALS: BP 133/79; PULSE 67; RESP 16; TEMP 97.5; O2SAT 96
[2024-02-15 08:26] VITALS: BP 115/70; PULSE 71; RESP 17; TEMP 97.4; O2SAT 95
[2024-02-15 20:23] VITALS: BP 110/75; PULSE 75; RESP 16; TEMP 97.4; O2SAT 97
[2024-02-16 08:31] VITALS: BP 126/71; PULSE 62; RESP 17; TEMP 98.2; O2SAT 96
[2024-02-16 20:02] VITALS: BP 131/89; PULSE 74; RESP 17; TEMP 98.3; O2SAT 97
[2024-02-17 08:20] VITALS: BP 116/72; PULSE 66; RESP 16; TEMP 96.9; O2SAT 97
[2024-02-17 21:17] VITALS: BP 120/74; PULSE 72; RESP 18; TEMP 97.4; O2SAT 98
[2024-02-18 08:50] VITALS: BP 112/67; PULSE 64; RESP 17; TEMP 97.8; O2SAT 97
[2024-02-18 21:57] VITALS: BP 119/61; PULSE 71; RESP 18; TEMP 97.6; O2SAT 99
[2024-02-19 08:24] VITALS: BP 109/69; PULSE 72; RESP 19; TEMP 97.9; O2SAT 96
[2024-02-19 20:54] VITALS: BP 145/80; PULSE 73; RESP 18; TEMP 96.3; O2SAT 98
[2024-02-20 08:53] VITALS: BP 117/78; PULSE 74; RESP 18; TEMP 97; O2SAT 96
[2024-02-20 21:12] VITALS: BP 132/81; PULSE 69; RESP 18; TEMP 96.9; O2SAT 97
[2024-02-21 09:58] VITALS: BP 111/70; PULSE 70; RESP 17; TEMP 97.1; O2SAT 95
[2024-02-21 20:45] VITALS: BP 135/79; PULSE 78; RESP 16; TEMP 97.4; O2SAT 97
[2024-02-22 08:34] VITALS: BP 121/78; PULSE 77; RESP 17; TEMP 97.6; O2SAT 97
[2024-02-22 20:41] VITALS: BP 139/83; PULSE 80; RESP 21; TEMP 97.7; O2SAT 100
[2024-02-23 08:26] VITALS: BP 113/63; PULSE 72; RESP 16; TEMP 97.7; O2SAT 96
[2024-02-23 20:39] VITALS: BP 122/84; PULSE 83; RESP 18; TEMP 96.2; O2SAT 95
[2024-02-24 08:10] VITALS: BP 118/66; PULSE 73; RESP 16; TEMP 97.7; O2SAT 97
[2024-02-24 20:34] VITALS: BP 123/76; PULSE 75; RESP 18; TEMP 98; O2SAT 95
[2024-02-24] MEDS: DiphenhydrAMINE HCL 25 MG CAPSULE PO PRN (21:27)
[2024-02-25 08:16] VITALS: BP 118/69; PULSE 74; RESP 16; TEMP 97.9; O2SAT 97
[2024-02-25 21:01] VITALS: BP 130/79; PULSE 98; RESP 16; TEMP 97.5; O2SAT 96
[2024-02-26 08:33] VITALS: BP 125/64; PULSE 75; RESP 18; TEMP 96.5; O2SAT 94
[2024-02-26 13:56] VITALS: RESP 18
[2024-02-26 14:56] VITALS: RESP 18
[2024-02-26] MEDS ORDERED: TRAZ-257 PO (16:59)
[2024-02-26] MEDS ORDERED: SERT-162 PO (16:59)
[2024-02-26 20:29] VITALS: BP 130/74; PULSE 82; RESP 17; TEMP 97.2; O2SAT 96
[2024-02-27 08:55] VITALS: BP 104/76; PULSE 83; RESP 17; TEMP 97.5; O2SAT 96
== END 2024-02-27 18:48 | disposition home or self-care (01) | DRG 885 ==
LOC: EMS 12:52 → B2S 01-06 00:35 → B2X 01-06 00:50 → B2S 01-15 11:35
PROVIDERS: ADMIT Psychiatry & Neurology Psychiatry; ATTEND Psychiatry & Neurology Psychiatry
PROC: GZHZZZZ Group Psychotherapy (ICD-10-PCS; principal; 2024-01-06)
PROC: GZ52ZZZ Individual Psychotherapy, Cognitive (ICD-10-PCS; 2024-01-06)
DX: F31.4 Bipolar disorder, current episode depressed, severe, without psychotic features (principal); B19.20 Unspecified viral hepatitis C without hepatic coma; R45.851 Suicidal ideations; F25.9 Schizoaffective disorder, unspecified; E03.9 Hypothyroidism, unspecified; G62.9 Polyneuropathy, unspecified; D72.829 Elevated white blood cell count, unspecified; G47.00 Insomnia, unspecified; K21.9 Gastro-esophageal reflux disease without esophagitis; A52.9 Late syphilis, unspecified; B00.9 Herpesviral infection, unspecified; E78.5 Hyperlipidemia, unspecified; F60.9 Personality disorder, unspecified; Z20.822 Contact with and (suspected) exposure to COVID-19; I10 Essential (primary) hypertension; Z28.21 Immunization not carried out because of patient refusal; Z79.899 Other long term (current) drug therapy; Z88.6 Allergy status to analgesic agent; Z91.148 Patient's other noncompliance with medication regimen for other reason; Z91.51 Personal history of suicidal behavior
CPT/HCPCS: 80048; 80061; 80307; 81003; 83036; 84443; 85025; 87081; 99285; G0480

== ENCOUNTER 2024-10-22 21:10 | Inpatient (IN) | payer MEDICARE, MEDICAID ==
[~2024-10-22] VITALS: Ht 177.8 cm; Wt 91.6 kg
[~2024-10-22 21:10] MED LIST changes: +SERT-162 PO; -SERT-440 PO; +TRAZ-257 PO; +VALA100026 PO
[2024-10-22 23:25] LABS: ANION GAP 10 mmol/L (8-16); BASOPHILS % (AUTO) 0.7 % (0.0-2.0); CALCIUM, TOTAL 8.9 mg/dL (8.8-10.5); CARBON DIOXIDE 27 mmol/L (22-29); CHLORIDE 103 mmol/L (98-107); CREATININE 1.03 mg/dL (0.60-1.30); EOSINOPHILS % (AUTO) 1.3 % (1.0-6.0); GLOMERULAR FILTR. RATE CALC > 60 mL/min (>60); GLUCOSE,RANDOM 88 mg/dL (70-110); HEMATOCRIT 41.1 % (41-53); HEMOGLOBIN 13.6 g/dL (13.5-17.5); LYMPHOCYTES # (AUTO) 1.9 K/uL (1.0-4.8); LYMPHOCYTES % (AUTO) 22.2 % (22.0-44.0); MEAN CORPUSCULAR HEMOGLOBIN 31.1 pg (26.0-34.0); MEAN CORPUSCULAR VOLUME 94 fL (80-100); NEUTROPHILS # (AUTO) 5.6 K/uL (1.8-7.7); NEUTROPHILS % (AUTO) 64.8 % (40.0-70.0); PLATELET COUNT (AUTO) 151 K/uL (150-450); POTASSIUM 3.8 mmol/L (3.5-5.1); RED BLOOD CELL COUNT(AUTO) 4.36 MIL/uL (4.50-5.90); RED CELL DISTRIBUTION WIDTH 13.4 % (11.5-14.5); SODIUM SERUM 139 mmol/L (136-145); UREA NITROGEN, BLOOD 10 mg/dL (7-18); WHITE BLOOD COUNT (AUTO) 8.7 K/uL (4.5-11.0)
[2024-10-22 23:39] LABS: ALCOHOL, BLOOD (SERUM) < 3 mg/dL (0-10)
[2024-10-22 23:48] LABS: COVID AG,FIA SOURCE NASAL SWAB
[2024-10-23] VITALS (9 sets, daily range): BP systolic 114–153; BP diastolic 63–104; PULSE 72–94; RESP 16–18; TEMP 96.8–98; O2SAT 97–99
[2024-10-23 00:06] LABS: SARS-COV2 (COVID) ANTIGEN,FIA Negative (Negative)
[2024-10-23] MEDS ORDERED: OXYC5TAB3 PO (00:44)
[2024-10-23] MEDS: OxyCODONE HCL 5 MG IR TABLET PO ONE (01:04)
[2024-10-23] MEDS: LORazepam 2 MG TABLET PO PRN ×2 (04:50→20:09)
[2024-10-23] MEDS ORDERED: MAG HYDROX/ALUMINUM HYD/SIMETH ES 30 ML SUSPENSION UDCUP PO PRN (06:30)
[2024-10-23] MEDS ORDERED: PETROLATUM,WHITE 28 GM JELLY TP PRN (06:30)
[2024-10-23] MEDS ORDERED: MAGNESIUM HYDROXIDE SUSPENSION 30 ML UDCUP PO PRN (06:30)
[2024-10-23] MEDS ORDERED: ALBUTEROL SULFATE HFA 90 MCG/PUFF 8 GM INHALER IH PRN (06:30)
[2024-10-23] MEDS ORDERED: GuaiFENesin/D-METHORPHAN [SUGAR-FREE] 200-20MG/10 ML SYRUP UDCUP PO PRN (06:30)
[2024-10-23] MEDS ORDERED: ONDANSETRON 4 MG TABLET PO PRN (06:30)
[2024-10-23] MEDS ORDERED: CloNIDine HCL 0.1 MG TABLET PO PRN (06:30)
[2024-10-23] MEDS ORDERED: IBUPROFEN 400 MG TABLET PO PRN (06:30)
[2024-10-23] MEDS ORDERED: LOPERAMIDE HCL 2 MG CAPSULE PO PRN (06:30)
[2024-10-23] MEDS ORDERED: NICOTINE 14 MG/24 HOUR PATCH TD PRN (06:30)
[2024-10-23] MEDS ORDERED: DOCUSATE SODIUM 100 MG CAPSULE PO PRN (06:30)
[2024-10-23] MEDS: LEVOTHYROXINE SODIUM 25 MCG TABLET PO SCH (07:22)
[2024-10-23] MEDS: FOLIC ACID 1 MG TABLET PO SCH (09:45)
[2024-10-23] MEDS: THIAMINE 100 MG TABLET PO SCH (09:45)
[2024-10-23] MEDS: CYANOCOBALAMIN 1,000 MCG/ML VIAL IM ONE (10:11)
[2024-10-23] MEDS: MULTIVITAMINS WITH MINERALS, THERAPEUTIC TABLET PO SCH (10:12)
[2024-10-23] MEDS: HydrOXYzine PAMOATE 50 MG CAPSULE PO PRN (14:09)
[2024-10-23] MEDS: OLANZapine 5 MG TABLET PO SCH (20:08)
[2024-10-23] MEDS: ZOLPIDEM TARTRATE 10 MG TABLET PO PRN (22:10)
[2024-10-24 02:00] VITALS: RESP 18
[2024-10-24 06:12] VITALS: RESP 18
[2024-10-24] MEDS ORDERED: LORazepam 2 MG TABLET PO PRN (07:00)
[2024-10-24] MEDS: LORazepam 2 MG TABLET PO SCH (08:43)
[2024-10-24 08:53] LABS: HEMOGLOBIN A1C 5.5 % (3.8-5.6)
[2024-10-24 09:06] LABS: THYROID STIMULATING HORMONE 2.13 uIU/mL (0.36-3.74)
[2024-10-24 09:20] VITALS: BP 129/86; PULSE 88; RESP 17; TEMP 97.5; O2SAT 99
[2024-10-24 09:30] LABS: CHOL/HDL RATIO 3.5 (4.2-7.3)
[2024-10-24 10:30] VITALS: BP 126/85; PULSE 94; RESP 18; TEMP 97.5; O2SAT 98
[2024-10-24 14:30] VITALS: BP 142/77; PULSE 80; RESP 18; TEMP 97.5; O2SAT 97
[2024-10-24 20:00] VITALS: BP 124/87; PULSE 90; RESP 17; TEMP 98.4; O2SAT 96
[2024-10-25 08:58] VITALS: BP 157/89; PULSE 86; RESP 16; TEMP 97.4; O2SAT 99
[2024-10-25 09:39] LABS: APPEARANCE,URINE CLEAR (CLEAR); BILIRUBIN,URINE NEGATIVE (NEGATIVE); COLOR,URINE LIGHT YELLOW (YELLOW); GLUCOSE, URINE (UA) NEGATIVE (NEGATIVE); KETONES,URINE NEGATIVE (NEGATIVE); LEUKOCYTE ESTERASE ,URINE NEGATIVE (NEGATIVE); NITRATE,URINE NEGATIVE (NEGATIVE); OCCULT BLOOD,URINE NEGATIVE (NEGATIVE); PH,URINE 6.5 (5.0-8.0); PH,URINE DRUG SCREEN 6.5 (5.0-8.0); PROTEIN,URINE NEGATIVE (NEGATIVE); SPECIFIC GRAVITIY, URINE 1.008 (1.003-1.030); UROBILINOGEN,URINE <=1.0 mg/dL (<=1.0)
[2024-10-25 09:40] VITALS: BP 157/89; PULSE 86; RESP 16; TEMP 97.4; O2SAT 99
[2024-10-25 09:50] LABS: ALCOHOL, URINE DRUG SCREEN NEGATIVE (NEGATIVE); AMPHET/METH SCREEN,URINE NEGATIVE (NEGATIVE); BARBITURATE SCREEN, URINE NEGATIVE (NEGATIVE); BENZODIAZEPINES SCREEN,URINE NEGATIVE (NEGATIVE); CANNABINOID SCREEN,URINE NEGATIVE (NEGATIVE); COCAINE SCREEN,URINE NEGATIVE (NEGATIVE); METHADONE SCREEN, URINE NEGATIVE (NEGATIVE); OPIATE SCREEN,URINE NEGATIVE (NEGATIVE); PHENCYCLIDINE SCREEN,URINE NEGATIVE (NEGATIVE)
[2024-10-25 20:12] VITALS: BP 121/76; PULSE 75; RESP 18; TEMP 98.5; O2SAT 98
[2024-10-26 08:36] VITALS: BP 151/95; PULSE 85; RESP 18; TEMP 98.3; O2SAT 98
[2024-10-26] MEDS: LORazepam 1 MG TABLET PO SCH (08:38)
[2024-10-26 15:03] VITALS: BP 148/89
[2024-10-26 21:16] VITALS: BP 146/94; PULSE 92; RESP 16; TEMP 97.7; O2SAT 99
[2024-10-27] MEDS: LORazepam 1 MG TABLET PO PRN (03:39)
[2024-10-27 03:40] VITALS: BP 105/68; PULSE 65; RESP 18; TEMP 97.5; O2SAT 98
[2024-10-27] MEDS ORDERED: LORazepam 1 MG TABLET PO PRN (07:00)
[2024-10-27 10:16] VITALS: BP 129/71; PULSE 84; RESP 18; TEMP 98; O2SAT 97
[2024-10-27 20:05] VITALS: BP 144/85; PULSE 100; RESP 17; TEMP 98.1
[2024-10-28 03:04] VITALS: BP 137/96
[2024-10-28 08:16] VITALS: BP 141/107; PULSE 95; RESP 18; TEMP 97.2; O2SAT 96
[2024-10-28] MEDS ORDERED: GADOTERATE MEGLUMINE 10 MMOL/20 ML VIAL IVP ONE (13:40)
[2024-10-28] MEDS ORDERED: OLAN5TAB52 PO (14:27)
[2024-10-28] MEDS: DiphenhydrAMINE HCL 25 MG CAPSULE PO SCH (20:29)
[2024-10-28 21:19] VITALS: BP 142/82; PULSE 91; RESP 18; TEMP 97.5; O2SAT 97
[2024-10-29 08:56] VITALS: BP 123/86; PULSE 81; RESP 17; TEMP 96.3; O2SAT 98
== END 2024-10-29 15:35 | disposition left against medical advice (07) | DRG 885 ==
LOC: EMS 21:10 → B2S 10-23 02:49
PROVIDERS: ADMIT Psychiatry & Neurology Child & Adolescent Psychiatry; ATTEND Psychiatry & Neurology Psychiatry
PROC: GZHZZZZ Group Psychotherapy (ICD-10-PCS; principal; 2024-10-23)
PROC: GZ51ZZZ Individual Psychotherapy, Behavioral (ICD-10-PCS; 2024-10-23)
DX: F31.4 Bipolar disorder, current episode depressed, severe, without psychotic features (principal); R45.851 Suicidal ideations; Z59.01 Sheltered homelessness; D32.0 Benign neoplasm of cerebral meninges; Z20.822 Contact with and (suspected) exposure to COVID-19; G47.00 Insomnia, unspecified; E03.9 Hypothyroidism, unspecified; F10.20 Alcohol dependence, uncomplicated; G62.9 Polyneuropathy, unspecified; G89.29 Other chronic pain; Z91.81 History of falling; Z88.6 Allergy status to analgesic agent
CPT/HCPCS: 70450; 80048; 80061; 80307; 81003; 83036; 84443; 85025; G0480; J3420